=== PATIENT | female | born 1940 | race Caucasian/White ===

== ENCOUNTER → 2019-09-13 00:01 | Outpatient (RCR) | payer MEDICARE, SELFPAY | LOC: ONCMED 08-15 05:37 | PROVIDERS: Family Provider Nurse Practitioner Family; Visit Provider Internal Medicine Hematology & Oncology | DX: Z51.11 Encounter for antineoplastic chemotherapy (principal); C18.8 Malignant neoplasm of overlapping sites of colon; C78.7 Secondary malignant neoplasm of liver and intrahepatic bile duct; D50.9 Iron deficiency anemia, unspecified; D72.819 Decreased white blood cell count, unspecified; D69.6 Thrombocytopenia, unspecified; Z87.11 Personal history of peptic ulcer disease; Z86.010 Personal history of colon polyps; Z79.899 Other long term (current) drug therapy; Z95.828 Presence of other vascular implants and grafts | CPT/HCPCS: 36415; 36593; 80053 ×3; 85025 ×3; 96367 ×2; 96368 ×2; 96374; 96375; 96413 ×2; 96415 ×2; 96416 ×2; 96417; 96523 ×2; 99214 ×3; J0640 ×2; J1100 ×2; J1642 ×4; J2469 ×2; J2997 ×2; J3475; J3490 ×2; J7050 ×3; J9263 ×4; J9303 ×2 ==

== ENCOUNTER 2019-10-05 05:46 | Outpatient (RCR) | payer MEDICARE, SELFPAY ==
[2019-09-19 08:48] LABS: Basophils # 0.1 10^3/uL (0.0-0.1); Basophils % 1.2 %; Eosinophils # 0.2 10^3/uL (0.0-0.8); Eosinophils % 3.1 %; Hematocrit 42.5 % (37.0-47.0); Hemoglobin 13.7 g/dL (11.5-15.3); Lymphocytes # 1.3 10^3/uL (0.8-4.8); Lymphocytes % 25.7 %; Mean Corpuscular HGB Conc 32.2 g/dL (30.0-36.0); Mean Corpuscular Hemoglobin 28.1 pg (28.0-34.0); Mean Corpuscular Volume 87.3 fL (81-99); Mean Platelet Volume 10.7 fL (7.4-10.4); Monocytes # 0.7 10^3/uL (0.2-0.9); Monocytes % 14.9 %; Neutrophils # 2.7 10^3/uL (1.8-7.7); Neutrophils % 54.9 %; Nucleated Red Blood Cells % 0 %; Platelet Count 206 10^3/cmm (130-400); Red Blood Count 4.87 10^6/uL (4.1-5.3); Red Cell Distribution Width 18.6 % (12.1-15.1); White Blood Count 4.9 10^3/uL (4.0-10.0)
[2019-09-19 09:10] LABS: Alanine Aminotransferase 18 U/L (0-33); Alkaline Phosphatase 101 IU/L (35-105); Anion Gap 18.4 (5-19); Aspartate Amino Transferase 24 U/L (0-32); Blood Urea Nitrogen 10 mg/dL (8-23); Calcium 10.4 mg/Dl (8.8-10.2); Carbon Dioxide 27 mmol/L (22-29); Chloride 97 mmol/L (98-107); Globulin 1.7 g/dL (1.3-4.6); Glucose 145 mg/dL (74-106); Potassium 3.4 mmol/L (3.5-5.1); Sodium 139 mmol/L (136-145); Total Bilirubin 0.5 mg/dL (0.15-1.2); Total Protein 6.7 g/dL (6.6-8.7)
[2019-09-19] MEDS: dextrose 5% 250 ML 75 ML (10:05)
--- NOTE | 2019-09-19 10:56 | ONC FU_ITS ---
[facility] Patient Note Patient: Elaine Gomez Unit #: [id number]: 1940 Dictated By: Agnes WestfallDate of Visit: Sep 19, 2019 Onc MED Follow-Up/Prog Note Chief Complaint: Iron deficiency anemia Sigmoid Colon Cancer History of Present Illness: Mrs. Byrne is a 79-year-old female with history of chronic back pain for which she was taking ibuprofen for the last 4 months. She went to see her primary care physician for routine lab workup and follow-up and found to have severe anemia. Her CBC checked on 05/05/2019 shows white blood count 7.2 hemoglobin 6.7 crit 23.2 platelets 367,000 MCV 65.5 iron studies showed ferritin 6 iron 17 saturation for TIBC 425 and CMP was within normal range. Patient was given 2 units of packed RBCs. Patient said she was feeling weak and tired but thought it was due to old age . She had had no palpitations, no shortness of breath, no history of melena or hematochezia, no history of jaundice, no history of weight loss, no history of hemoptysis or hematemesis, no history of hematuria. No history of weight loss. No history of abdominal pain. Patient has history of peptic ulcer in the past. Last colonoscopy was done 5 years ago and at that time she was found to have some polyps, there were removed as per patient it was negative for any malignancy. Mrs Gomez underwent EGD and colonoscopy by Dr. Haas on 06/07/2019 Showed distal colon/sigmoid mass and biopsy was obtained which shows infiltrating adenocarcinoma CT scan of abdomen pelvis done on 06/08/2019 showed colonic mass involving descending and sigmoid colon with luminal narrowing measuring over length of 6.4 cm and normal size liver. There are several hypoechoic nodules within the liver. The largest and most concerning was in the inferior right lobe measuring 2.2 x 1.3 cm. There are a few additional scattered hypodensities within the remaining liver. CT PET scan done on 06/18/2019 showed hypermetabolic colonic mass in the descending colon at sigmoid with SUV of 18.7. And two hypermetabolic hepatic lesions also seen, one is in the lateral right lobe, segment 7 measuring 1.2 cm with SUV 5.3 and second one in the left lobe measuring 1.3 cm with SUV of 6.5 Next generation sequencing showed K-marti/N marti wild type,BRAF mutation not detected, MSI/MMR intact. Dr Hayes recommended treatment with modified FOLFOX and vectibix. She began her first treatment on July 18, 2019. Mrs. Gomez is here today for follow-up. She is due for cycle 5 FOLFOX/vectibix Her treatment was held last week due to neutropenia-her ANC was 1400. Her platelet count had dipped to 130,000. She was delayed a week and is here today for reassessment. She states overall she is doing good. 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 She states is not getting any worse. It is not lasting any longer or worse in intensity. She denies any mouth sores, sore throat or difficulty swallowing. She denies any nausea. She states her energy is fair. She is able to do all of her ADLs without assistance. She denies any fever or chills. She states her appetite is good. She denies any diarrhea or constipation. She states that her stomach does get pretty loud and rumbling at times but has no nausea or pain or diarrhea with the rumbling. She states is just really loud at times. She states she does have some gas with the rumbling. We discussed her taking Gas-X as needed. She states overall she is feeling good. Her ECOG is 1. Past Medical History: Hypertension Type II diabetes Past Surgical History: Breast biopsy Hysterectomy Allergies: Penicillin Medications: Furosemide 1 Tablet (of 40 mg) Oral daily Gemfibrozil 1 Tablet (of 600 mg) Oral b.i.d. Glimepiride 1 Tablet (of 2 mg) Oral b.i.d. LORazepam 0.5 - 1 Tablet (of 1 mg) Oral t.i.d. PRN Losartan Potassium 1 Tablet (of 100 mg) Oral daily metFORMIN HCl 2 Tablet (of 500 mg) Oral b.i.d. Potassium Chloride ER 1 Tablet (of 10 meq) Tablet, controlled release Oral daily Pravastatin Sodium 1 Tablet (of 40 mg) Oral daily Prochlorperazine Maleate 1 Tablet (of 10 mg) Oral q 4 hours PRN Family History: Ms. Gomez's mother at age 85: old age. Ms. Gomez's father at age 70: myocardial infaraction. Social History: Ms. Gomez is and she is retired. Ms. Gomez has never smoked. She has no history of drinking. Review Of Symptoms: Constitutional Denies fevers, chills, night sweats, excessive fatigue or weight loss. Allergic/Immunologic No reactions. Eyes Denies significant visual changes. No diplopia. No amaurosis. ENMT Denies changes in hearing, sore throat, mouth sores, difficulty or changes in swallowing ability, and/or sinus drainage. Endocrine No diabetes, thyroid disease or hormone replacement. Denies hot flashes or night sweats. Hematologic/Lymphatic Denies easy bruising or bleeding. The patient denies any tender or palpable lymph nodes. Respiratory Denies dyspnea on exertion, chest pain, cough or hemoptysis. Denies orthopnea. Cardiovascular Denies anginal chest pain, palpitations or orthopnea. Gastrointestinal Denies nausea, vomiting, diarrhea, GI bleeding, or constipation. Denies change in bowel habits and/or stool color, no heartburn or early satiety. States stomach gets to getting grumbling really loud at times. No diarrhea or nausea/vomiting. Genitourinary (F) No hematuria, hesitancy, incontinence, vaginal bleeding, discharge or other problems with urination. Musculoskeletal Denies joint pain, swelling or redness. No decreased range of motion. Integumentary Denies chronic rashes, inflammation, ulcerations or skin changes. Neurologic Denies headache, blurred vision, and no areas of focal weakness or numbness. Normal-assisted gait. No sensory problems today. Psychiatric Denies insomnia, depression, heather or mood swings. Vital Signs: Performed on Sep 19, 2019 09:03 Height - 60.00 in Weight - 141.8 lbs (HIGH) BSA - 1.61 sq.m BMI - 27.69 Temperature - 97.8 F (LOW) Pulse - 95 /min Respiration - 24 /min BP - 138/90 mm(hg) O2 Sat - 94 % (LOW) Pain - 0,1 - No physically strenuous activity, but ambulatory and able to carry out light or sedentary work (e.g. office work, light house work). (ECOG) Physical Examination: Constitutional Alert, oriented, no acute distress. Skin pink, warm and dry. Head Normocephalic; atraumatic. Eyes Conjunctivae and sclerae are clear and without icterus. Pupils are reactive and equal. ENMT No oral exudates, ulcers, masses, thrush or mucositis. Oropharynx clear. Tongue normal. Neck Supple without masses or thyromegaly. No jugular venous distension. Hematologic/Lymphatic No petechiae or purpura. Respiratory Lungs are clear to auscultation without rhonchi or wheezing. Cardiovascular Regular rate and rhythm of heart without murmurs,clicks, gallops or rubs. Chest Left venous access device insertion unremarkable. Abdomen Non-tender, non-distended, no masses, ascites. Good bowel sounds noted in all quads. No guarding or rebound tenderness. No pulsatile masses. Back/Spine Non-tender to palpation. Extremities No visible deformities, no cyanosis, clubbing or edema. Musculoskeletal No tenderness or swelling, normal range of motion without obvious weakness. Integumentary No rashes or lesions. Neurologic No sensory or motor deficits, normal cerebellar function, normal for her/assisted gait. Psychiatric Alert and oriented times three. Coherent speech. Verbalizes understanding of our discussions today. Laboratory:Test performed on Sep 19, 2019 08:16 Glucose 145 mg/dL BUN 10 mg/dL Creatinine 0.6 mg/dL Cr Clearance (Est) 81.55 mL/min Sodium 139 mmol/L Potassium 3.4 mmol/L Chloride 97 mmol/L CO2 27 mmol/L Calcium 10.4 mg/dL Protein, Total 6.7 g/dL Albumin 5.0 g/dL Globulin 1.7 g/dL Bilirubin, Total 0.5 mg/dL Alkaline Phosphatase 101 IU/L AST (SGOT) 24 IU/L ALT (SGPT) 18 IU/L WBC 4.9 10^9/L RBC 4.87 10^12/L HGB 13.7 g/dL HCT 42.5 % MCV 87.3 fl MCH 28.1 pg MCHC 32.2 g/dL RDW 18.6 % Platelet Count 206 10^9/L Neutrophils (Gran) 2.7 10^9/L Lymphocytes 1.3 10^9/L Monocytes 0.7 10^9/L Eosinophils 0.2 10^9/L Basophils 0.1 10^9/L Test performed on Jun 15, 2019 12:08 CEA 6.3 ng/mL Impression: Moderately differentiated infiltrating adenocarcinoma involving distal colon/sigmoid colon per colonoscopy done on 06/07/2019 CT scan of abdomen done on 06/08/2019 showed short segment 80 of significant circumferential mucosal thickening extending over mental 6.4 cm involving descending colon and proximal sigmoid. Moderate narrowing of the lumen. There is adjacent pericolonic stranding with a wall thickening and soft tissue infiltration. There is a small adjacent lymph node measuring 5 mm. Normal size liver. There are several hypoechoic nodules within the liver. The largest and most concerning is the inferior right lobe measuring 2.2 x 1.3 cm there are a few additional scattered hypodensities within the remaining liver. CEA checked on 06/15/2019 was 6.3 Well compensated, Microcytic hypochromic anemia due to iron deficiency Most likely due to bleeding from colon cancer CBC done on 05/05/2019 showed white blood count 7.2 hemoglobin 6.7 hematocrit 23.2 MCV 65.5 platelets 367,000 and ferritin 6, iron saturation 4%, iron 17. Status post 2 units of packed RBC with that her repeat CBC done on 05/24/2019 showed white blood count 5.5 hemoglobin 9.1 g, hematocrit 29.4 MCV 70.9 platelets 320,000 with a normal differential. colonoscopy was done 5 years ago, some polyps were removed, as per patient, there were benign. Distant past history of peptic ulcer disease. Dr Cat discussed with Mrs Gomez regarding her CT PET scan which confirmed hepatic metastatic disease and next initially sequencing which showed MSI/MMR intact, K-marti/ Nras wild type, BRAF no mutation detected. At this point role of systemic chemotherapy in stage IV colon cancer was discussed by Dr Cat with the patient and family and earlier with her son, Dakota gomez, who is a surgeon in [facility]. And based on next initially sequencing, Dr Cat recommended that she proceed with panitumumab 6 mg/kg every 2 weeks along with FOLFOX. Considering her age and this stage IV disease, we might consider dose modification. All the side effect possible benefits associated with immunotherapy/chemotherapy were discussed, especially immunotherapy related, like dermatologic , pulmonary GI especially nausea diarrhea and electrolyte imbalance like hypomagnesemia were mentioned and peripheral neuropathy especially with oxaliplatin and mild sore diarrhea, jaundice or [id number] syndrome especially with 5-FU were mentioned. She did obtain Port-A-Cath placement to facilitate chemotherapy. The current plan to give her 6 cycles of this regimen followed by CT PET scan to assess the response. She has completed 4 cycles at this time. She did have delay of 1 week of cycle 5 due to neutropenia with an ANC of 1400. Plan: 1. Proceed with cycle 5/6 FOLFOX/Vectibix. 2. Continue current anti-medics as they are working well. I did add Protonix today to see if this will help with a rumbling in her stomach . 3. Today's labs were reviewed and discussed with Mr. Mrs. Gomez and a copy was given to them. WBC is recovered at 4.9 hemoglobin 13.7, platelets 206,000, ANC is 2700. Potassium has improved to 3.4 and BUN is 0.6. Random glucose was 145. LFTs were normal. 4. We did discuss that she could use Gas-X 180 mg 1 or 2 up to 2-3 times a day as needed for the rumbling in her gut . 5. We will plan to see her back in 2 weeks with CBC CMP in anticipation of cycle 6-day 1. I did request interim CBC just to monitor as she was neutropenic last week. 6. Mrs Gomez has been instructed to contact us in the interim should questions or problems arise. ADDENDUM: Mrs. Gomez is instructed to continue her potassium at 10 mg twice daily. Her potassium is recovering. Signed By: Agnes Westfall-, AOCNP Abdullahi Cat MD <<Signature on File>>
[2019-09-19] MEDS: acetaminophen 325 mg Tablet 650 MG PO (12:36)
[2019-09-19] MEDS: pantoprazole 40 mg SDV IV (12:40)
[2019-09-26 10:50] LABS: Basophils # 0.1 10^3/uL (0.0-0.1); Basophils % 1.1 %; Eosinophils # 0.1 10^3/uL (0.0-0.8); Eosinophils % 3.1 %; Hematocrit 42.2 % (37.0-47.0); Hemoglobin 13.4 g/dL (11.5-15.3); Lymphocytes % 22.4 %; Mean Corpuscular HGB Conc 31.8 g/dL (30.0-36.0); Mean Corpuscular Hemoglobin 28.4 pg (28.0-34.0); Mean Corpuscular Volume 89.4 fL (81-99); Mean Platelet Volume 10.5 fL (7.4-10.4); Monocytes # 0.3 10^3/uL (0.2-0.9); Monocytes % 7.3 %; Neutrophils % 65.7 %; Nucleated Red Blood Cells % 0 %; Platelet Count 156 10^3/cmm (130-400); Red Blood Count 4.72 10^6/uL (4.1-5.3); Red Cell Distribution Width 17.8 % (12.1-15.1); White Blood Count 4.6 10^3/uL (4.0-10.0)
[2019-10-03 08:34] LABS: Basophils % 0.7 %; Eosinophils # 0.1 10^3/uL (0.0-0.8); Eosinophils % 2.7 %; Hematocrit 40.2 % (37.0-47.0); Hemoglobin 12.7 g/dL (11.5-15.3); Lymphocytes % 23.5 %; Mean Corpuscular HGB Conc 31.6 g/dL (30.0-36.0); Mean Corpuscular Hemoglobin 28.9 pg (28.0-34.0); Mean Corpuscular Volume 91.6 fL (81-99); Mean Platelet Volume 10.4 fL (7.4-10.4); Monocytes # 0.5 10^3/uL (0.2-0.9); Neutrophils # 2.7 10^3/uL (1.8-7.7); Neutrophils % 61.9 %; Nucleated Red Blood Cells % 0 %; Platelet Count 130 10^3/cmm (130-400); Red Blood Count 4.39 10^6/uL (4.1-5.3); Red Cell Distribution Width 17.5 % (12.1-15.1); White Blood Count 4.4 10^3/uL (4.0-10.0)
[2019-10-03 08:59] LABS: Carcinoembryonic Antigen 5.9 ng/mL (0.0-4.7)
[2019-10-03 09:20] LABS: Alanine Aminotransferase 28 U/L (0-33); Albumin Level 3.5 g/dL (3.5-5.2); Alkaline Phosphatase 95 IU/L (35-105); Anion Gap 18.8 (5-19); Aspartate Amino Transferase 39 U/L (0-32); Blood Urea Nitrogen 10 mg/dL (8-23); Calcium 9.2 mg/Dl (8.8-10.2); Carbon Dioxide 20 mmol/L (22-29); Chloride 106 mmol/L (98-107); Globulin 3.2 g/dL (1.3-4.6); Glucose 102 mg/dL (74-106); Potassium 3.8 mmol/L (3.5-5.1); Sodium 141 mmol/L (136-145); Total Bilirubin 0.4 mg/dL (0.15-1.2); Total Protein 6.7 g/dL (6.6-8.7)
[2019-10-03] MEDS: dextrose 5% 250 ML 75 ML (09:55)
[2019-10-03] MEDS: acetaminophen 325 mg Tablet 650 MG PO (10:00)
[2019-10-03] MEDS: dextrose 5% 250 ML 300 ML IV (10:17)
--- NOTE | 2019-10-03 14:26 | ONC FU_ITS ---
Dr. Cat follow up note Patient: Elaine Gomez Unit #: [id number]: 1940 Dicatated By: Abdullahi Cat M.D.Date of Visit:Oct 03, 2019 Onc Med Follow-up/Prog Note History of Present Illness: Mrs. Byrne is a 79-year-old female with history of chronic back pain for which she was taking ibuprofen for the last 4 months. She went to see her primary care physician for routine lab workup and follow-up and found to have severe anemia. Her CBC checked on 05/05/2019 shows white blood count 7.2 hemoglobin 6.7 crit 23.2 platelets 367,000 MCV 65.5 iron studies showed ferritin 6 iron 17 saturation for TIBC 425 and CMP was within normal range. Patient was given 2 units of packed RBCs. Patient said she was feeling weak and tired but thought it was due to old age . She had had no palpitations, no shortness of breath, no history of melena or hematochezia, no history of jaundice, no history of weight loss, no history of hemoptysis or hematemesis, no history of hematuria. No history of weight loss. No history of abdominal pain. Patient has history of peptic ulcer in the past. Last colonoscopy was done 5 years ago and at that time she was found to have some polyps, there were removed as per patient it was negative for any malignancy. Mrs Gomez underwent EGD and colonoscopy by Dr. Haas on 06/07/2019 Showed distal colon/sigmoid mass and biopsy was obtained which shows infiltrating adenocarcinoma CT scan of abdomen pelvis done on 06/08/2019 showed colonic mass involving descending and sigmoid colon with luminal narrowing measuring over length of 6.4 cm and normal size liver. There are several hypoechoic nodules within the liver. The largest and most concerning is in the inferior right lobe measuring 2.2 x 1.3 cm. There are a few additional scattered hypodensities within the remaining liver. CT PET scan done on 06/18/2019 showed hypermetabolic colonic mass in the descending colon at sigmoid with SUV of 18.7. And two hypermetabolic hepatic lesions also seen, one is in the lateral right lobe, segment 7 measuring 1.2 cm with SUV 5.3 and second one in the left lobe measuring 1.3 cm with SUV of 6.5 Next generation sequencing showed K-marti/N marti wild type,BRAF mutation not detected, MSI/MMR intact. recommended treatment with modified FOLFOX and vectibix. She began her first treatment on July 18, 2019. Came for follow-up, denies any specific complaints, no fever or chills, no nausea or vomiting, no mouth sores, no jaundice, no peripheral numbness, no diarrhea constipation. Occasionally abdominal cramps especially after chemotherapy otherwise tolerating systemic well. Medications: Furosemide 1 Tablet (of 40 mg) Oral daily, Gemfibrozil 1 Tablet (of 600 mg) Oral b.i.d., Glimepiride 1 Tablet (of 2 mg) Oral b.i.d., LORazepam 0.5 - 1 Tablet (of 1 mg) Oral t.i.d. PRN, Losartan Potassium 1 Tablet (of 100 mg) Oral daily, metFORMIN HCl 2 Tablet (of 500 mg) Oral b.i.d., Potassium Chloride ER 2 Tablet (of 10 meq) Tablet, controlled release Oral daily, Pravastatin Sodium 1 Tablet (of 40 mg) Oral daily, Prochlorperazine Maleate 1 Tablet (of 10 mg) Oral q 4 hours PRN Allergies: Penicillin Review of Systems: Constitutional - Appetite is good and weight is stable. No fever, chills, hot flashes, or night sweats. Energy level is fair. Pt does report some weakness with exertion, and some instability while mobile, ENMT - No sinus congestion/drainage. No mouth sores. No sore throat or difficulty swallowing, Hematologic/Lymphatic - No abnormal bruising or bleeding, Respiratory - No shortness of breath. No cough. No pleuritic pain or hemoptysis, Cardiovascular - No angina pain. No palpitations, Gastrointestinal - No nausea or vomiting. No heartburn or acid reflux. No diarrhea or constipation. No blood in the stool or black stools, Genitourinary (F) - No dysuria or hematuria. No urinary frequency. No urgency or incontinence, Musculoskeletal - Positive for back pain, Neurologic - No headache or dizziness. Pt reports numbness in fingers when exposed to cold temperatures, Psychiatric - No anxiety or depression. No insomnia. Vital Signs: Performed on Oct 03, 2019 09:23 Height - 60.00 in Weight - 143.2 lbs (HIGH) BSA - 1.62 sq.m BMI - 27.97 Temperature - 97.8 F (LOW) Pulse - 61 /min Respiration - 18 /min BP - 161/81 mm(hg) (HIGH) O2 Sat - 98 % Pain - 0 Performance Status: 1 - No physically strenuous activity, but ambulatory and able to carry out light or sedentary work (e.g. office work, light house work). (ECOG) Physical Examination: ENMT - No oral exudates, ulcers, masses, thrush or mucositis. Oropharynx clear. Tongue normal, Respiratory - Lungs are clear to auscultation without rhonchi or wheezing, Cardiovascular - Regular rate and rhythm of heart, Abdomen - Non-tender, non-distended, Good bowel sounds. No guarding or rebound tenderness. No pulsatile masses, Extremities - no edema. Lab/Imaging: Test performed on Oct 03, 2019 09:07 CEA 5.9 ng/mL Test performed on Oct 03, 2019 08:53 WBC 4.4 10^9/L RBC 4.39 10^12/L HGB 12.7 g/dL HCT 40.2 % MCV 91.6 fl MCH 28.9 pg MCHC 31.6 g/dL RDW 17.5 % Platelet Count 130 10^9/L MPV 10.4 fL Neutrophils (Gran) 2.7 10^9/L Lymphocytes 1.0 10^9/L Monocytes 0.5 10^9/L Eosinophils 0.1 10^9/L Basophils 0 10^9/L Manual Lymphocytes 23.5 % Manual Monocytes 11 % Manual Eosinophils 2.7 % Manual Basophils 0.7 % NRBCs 0 /100 WBC Test performed on Oct 03, 2019 08:15 Glucose 102 mg/dL BUN 10 mg/dL Creatinine 0.6 mg/dL Cr Clearance (Est) 81.55 mL/min Sodium 141 mmol/L Potassium 3.8 mmol/L Chloride 106 mmol/L CO2 20 mmol/L Calcium 9.2 mg/dL Protein, Total 6.7 g/dL Albumin 3.5 g/dL Globulin 3.2 g/dL Bilirubin, Total 0.4 mg/dL Alkaline Phosphatase 95 IU/L AST (SGOT) 39 IU/L ALT (SGPT) 28 IU/L Neutrophil % 2.7 % Test performed on Sep 13, 2019 08:19 Anion Gap 15.3 Lymphocyte % 32.5 % Monocyte % 16.1 % Eosinophil % 5.0 % Basophils % 1.6 % Test performed on Jul 25, 2019 13:24 Magnesium 1.6 mg/dL Impression: Moderately differentiated infiltrating adenocarcinoma involving distal colon/sigmoid colon per colonoscopy done on 06/07/2019 CT scan of abdomen done on 06/08/2019 showed short segment 80 of significant circumferential mucosal thickening extending over mental 6.4 cm involving descending colon and proximal sigmoid. Moderate narrowing of the lumen. There is adjacent pericolonic stranding with a wall thickening and soft tissue infiltration. There is a small adjacent lymph node measuring 5 mm. Normal size liver. There are several hypoechoic nodules within the liver. The largest and most concerning is the inferior right lobe measuring 2.2 x 1.3 cm there are a few additional scattered hypodensities within the remaining liver. CEA checked on 06/15/2019 was 6.3 Well compensated, Microcytic hypochromic anemia due to iron deficiency Most likely due to bleeding from colon cancer CBC done on 05/05/2019 showed white blood count 7.2 hemoglobin 6.7 hematocrit 23.2 MCV 65.5 platelets 367,000 and ferritin 6, iron saturation 4%, iron 17. Status post 2 units of packed RBC with that her repeat CBC done on 05/24/2019 showed white blood count 5.5 hemoglobin 9.1 g, hematocrit 29.4 MCV 70.9 platelets 320,000 with a normal differential. colonoscopy was done 5 years ago, some polyps were removed, as per patient, there were benign. Distant past history of peptic ulcer disease. discussed with Mrs Gomez regarding her CT PET scan which confirmed hepatic metastatic disease and next initially sequencing which showed MSI/MMR intact, K-marti/ Nras wild type, BRAF no mutation detected. At this point role of systemic chemotherapy in stage IV colon cancer was discussed with the patient and family and earlier with her son, Dakota gomez, who is a surgeon in [facility]. And based on next initially sequencing, Dr Cat recommended that she proceed with panitumumab 6 mg/kg every 2 weeks along with FOLFOX. Considering her age and this stage IV disease, we might consider dose modification. All the side effect possible benefits associated with immunotherapy/chemotherapy were discussed, especially immunotherapy related, like dermatologic , pulmonary GI especially nausea diarrhea and electrolyte imbalance like hypomagnesemia were mentioned and peripheral neuropathy especially with oxaliplatin and mild sore diarrhea, jaundice or [id number] syndrome especially with 5-FU were mentioned. Patient excessive understanding, further teaching will be done by chemotherapy nurse. She did obtain Port-A-Cath placement to facilitate chemotherapy. The current plan to give her 6 cycles of this regimen followed by CT PET scan to assess the response. Plan: Discussed with patient regarding her labs white blood count 4.4 hemoglobin 12.7 crit 40.2 platelets 130,000 absolute neutrophil count 2700 CMP within normal limit CEA of 5.9 compared to 6.2 prior to the chemotherapy Clinically, patient is doing well with no signs symptom suggestive of disease progression, tolerating systemic chemotherapy with FOLFOX/vectibix well but with expected side effects. We'll proceed with cycle #6 of FOLFOX/vectibix today and then schedule her for follow-up CT PET scan to assess disease response and then plan accordingly surgery versus further treatment versus change in regimen depending on response to the treatment. Return to clinic in 2 weeks with CBC CMP and CT PET scan Signed By: Abdullahi Cat M.D. <<Signature on File>>
== END 2019-10-14 23:59 | disposition home or self-care (01) ==
LOC: ONCMED 05:46
PROVIDERS: Nurse Practitioner; Absent Provider Internal Medicine Medical Oncology; Family Provider Nurse Practitioner Family; Visit Provider Internal Medicine Hematology & Oncology
DX: Z51.11 Encounter for antineoplastic chemotherapy (principal); C18.8 Malignant neoplasm of overlapping sites of colon; C78.7 Secondary malignant neoplasm of liver and intrahepatic bile duct; Z45.2 Encounter for adjustment and management of vascular access device; G89.29 Other chronic pain; M54.9 Dorsalgia, unspecified; I10 Essential (primary) hypertension; E11.9 Type 2 diabetes mellitus without complications; Z79.84 Long term (current) use of oral hypoglycemic drugs; Z87.11 Personal history of peptic ulcer disease
CPT/HCPCS: 36415; 36593; 80053; 82378; 85025; 96367; 96368; 96374; 96375; 96413; 96415; 96416; 96417; 96523; 99214; A4222; C9113; J0640; J1100; J1200; J2469; J2997; J3490; J7050; J9263; J9303

== ENCOUNTER → 2019-10-10 15:03 | Outpatient (BNVA) | payer MEDICARE, SELFPAY | PROVIDERS: Family Provider Nurse Practitioner Family; Visit Provider Internal Medicine Hematology & Oncology | DX: R30.0 Dysuria (principal) | CPT/HCPCS: 81003 ==

== ENCOUNTER 2019-10-24 05:39 | Outpatient (RCR) | payer MEDICARE, SELFPAY ==
[2019-10-17 09:01] LABS: Basophils % 0.7 %; Eosinophils % 0.3 %; Hematocrit 44.7 % (37.0-47.0); Hemoglobin 14.4 g/dL (11.5-15.3); Lymphocytes # 0.9 10^3/uL (0.8-4.8); Lymphocytes % 28.1 %; Mean Corpuscular HGB Conc 32.2 g/dL (30.0-36.0); Mean Corpuscular Hemoglobin 29.2 pg (28.0-34.0); Mean Corpuscular Volume 90.7 fL (81-99); Mean Platelet Volume 11.2 fL (7.4-10.4); Monocytes # 0.8 10^3/uL (0.2-0.9); Monocytes % 25.2 %; Neutrophils # 1.4 10^3/uL (1.8-7.7); Neutrophils % 45.4 %; Nucleated Red Blood Cells % 0 %; Platelet Count 171 10^3/cmm (130-400); Red Blood Count 4.93 10^6/uL (4.1-5.3); Red Cell Distribution Width 16.9 % (12.1-15.1); White Blood Count 3.1 10^3/uL (4.0-10.0)
[2019-10-17 09:11] LABS: Alanine Aminotransferase 23 U/L (0-33); Albumin Level 3.9 g/dL (3.5-5.2); Alkaline Phosphatase 123 IU/L (35-105); Anion Gap 19.8 (5-19); Aspartate Amino Transferase 32 U/L (0-32); Blood Urea Nitrogen 8 mg/dL (8-23); Calcium 9.4 mg/dL (8.5-10.5); Carbon Dioxide 25 mmol/L (22-29); Chloride 97 mmol/L (98-107); Globulin 3.6 g/dL (1.3-4.6); Glucose 189 mg/dL (74-106); Sodium 139 mmol/L (136-145); Total Bilirubin 0.9 mg/dL (0.15-1.2); Total Protein 7.5 g/dL (6.6-8.7)
[2019-10-17 09:24] LABS: Potassium 2.8 mmol/L (3.5-5.1)
[2019-10-17] MEDS: ondansetron 2 mg/ML SDV 2 mL 4 MG IV (10:20)
[2019-10-17] MEDS: dexamethasone 10 mg/mL INJ 5 MG IV (10:25)
[2019-10-17] MEDS: potassium chloride 20 MEQ in sodium chloride 0.9% 500 ML 250 MEQ IV (10:30)
[2019-10-24 10:36] LABS: Basophils % 0.3 %; Eosinophils % 0.3 %; Hematocrit 45.3 % (37.0-47.0); Hemoglobin 14.7 g/dL (11.5-15.3); Lymphocytes # 1.2 10^3/uL (0.8-4.8); Lymphocytes % 19.7 %; Mean Corpuscular HGB Conc 32.5 g/dL (30.0-36.0); Mean Corpuscular Hemoglobin 29.8 pg (28.0-34.0); Mean Corpuscular Volume 91.7 fL (81-99); Monocytes # 0.9 10^3/uL (0.2-0.9); Monocytes % 14.3 %; Neutrophils # 3.9 10^3/uL (1.8-7.7); Neutrophils % 63.3 %; Nucleated Red Blood Cells % 0 %; Platelet Count 260 10^3/cmm (130-400); Red Blood Count 4.94 10^6/uL (4.1-5.3); Red Cell Distribution Width 16.9 % (12.1-15.1); White Blood Count 6.1 10^3/uL (4.0-10.0)
[2019-10-24 10:56] LABS: Alanine Aminotransferase 15 U/L (0-33); Albumin Level 3.9 g/dL (3.5-5.2); Alkaline Phosphatase 110 IU/L (35-105); Anion Gap 18.9 (5-19); Aspartate Amino Transferase 28 U/L (0-32); Blood Urea Nitrogen 9 mg/dL (8-23); Calcium 9.1 mg/dL (8.5-10.5); Carbon Dioxide 24 mmol/L (22-29); Chloride 99 mmol/L (98-107); Globulin 2.9 g/dL (1.3-4.6); Glucose 156 mg/dL (65-115); Magnesium 1.2 mg/dL (1.7-2.3); Potassium 2.9 mmol/L (3.5-5.1); Sodium 139 mmol/L (136-145); Total Bilirubin 0.6 mg/dL (0.15-1.2); Total Protein 6.8 g/dL (6.6-8.7)
--- NOTE | 2019-10-28 07:45 | ONC FU_ITS ---
[facility] Patient Note Patient: Elaine Gomez Unit #: [id number]: 1940 Dictated By: Agnes WestfallDate of Visit: Oct 24, 2019 Onc MED Follow-Up/Prog Note Chief Complaint: Iron deficiency anemia History of Present Illness: Mrs. Byrne is a 79-year-old female with history of chronic back pain for which she was taking ibuprofen for the last 4 months. She went to see her primary care physician for routine lab workup and follow-up and found to have severe anemia. Her CBC checked on 05/05/2019 shows white blood count 7.2 hemoglobin 6.7 crit 23.2 platelets 367,000 MCV 65.5 iron studies showed ferritin 6 iron 17 saturation for TIBC 425 and CMP was within normal range. Patient was given 2 units of packed RBCs. Patient said she was feeling weak and tired but thought it was due to old age . She had had no palpitations, no shortness of breath, no history of melena or hematochezia, no history of jaundice, no history of weight loss, no history of hemoptysis or hematemesis, no history of hematuria. No history of weight loss. No history of abdominal pain. Patient has history of peptic ulcer in the past. Last colonoscopy was done 5 years ago and at that time she was found to have some polyps, there were removed as per patient it was negative for any malignancy. Mrs Gomez underwent EGD and colonoscopy by Dr. Haas on 06/07/2019 Showed distal colon/sigmoid mass and biopsy was obtained which shows infiltrating adenocarcinoma CT scan of abdomen pelvis done on 06/08/2019 showed colonic mass involving descending and sigmoid colon with luminal narrowing measuring over length of 6.4 cm and normal size liver. There are several hypoechoic nodules within the liver. The largest and most concerning is in the inferior right lobe measuring 2.2 x 1.3 cm. There are a few additional scattered hypodensities within the remaining liver. CT PET scan done on 06/18/2019 showed hypermetabolic colonic mass in the descending colon at sigmoid with SUV of 18.7. And two hypermetabolic hepatic lesions also seen, one is in the lateral right lobe, segment 7 measuring 1.2 cm with SUV 5.3 and second one in the left lobe measuring 1.3 cm with SUV of 6.5 Next generation sequencing showed K-marti/N marti wild type,BRAF mutation not detected, MSI/MMR intact. recommended treatment with modified FOLFOX and vectibix. She began her first treatment on July 18, 2019 After 6 treatments, follow-up CT PET scan done on 10/14/2019 showed resolution of hepatic metastatic disease and significant improvement in the rectosigmoid mass now SUV 10.75 compared to 18.7 on 06/18/2019. Her last chemotherapy was on October 03, 2019 which completed 6 cycles of FOLFOX and vectibix. She states tentative surgery is planned for December 2019. This is planned to be done in [place] under the care of her son, Megan Dakota Gomez. She is here today for 1 week follow-up as she has been having hypokalemia and hypomagnesemia. Her last potassium infusion was 20 mEq here on October 17, 2019. She is taking 20 mEq daily at home. She denies any further diarrhea. She states overall she is starting to feel some better she is slowly recovering. She remains active around her house. She is able to do her ADLs without any assistance. She states she is just slow but is able to get them done. She denies any new shortness of breath orthopnea. She is had no leg cramps or palpitations. She denies any nausea or vomiting. She denies fever or chills. She denies any neuropathy symptoms at present. She states she is eating fairly good. She has no new concerns today. Her ECOG is 1. Past Medical History: Hypertension Type II diabetes Past Surgical History: Breast biopsy Hysterectomy Allergies: Penicillin Medications: Furosemide 1 Tablet (of 40 mg) Oral daily Glimepiride 1 Tablet (of 2 mg) Oral b.i.d. LORazepam 0.5 - 1 Tablet (of 1 mg) Oral t.i.d. PRN Losartan Potassium 1 Tablet (of 100 mg) Oral daily metFORMIN HCl 2 Tablet (of 500 mg) Oral b.i.d. Potassium Chloride ER 2 Tablet (of 10 meq) Tablet, controlled release Oral daily Pravastatin Sodium 1 Tablet (of 40 mg) Oral daily Prochlorperazine Maleate 1 Tablet (of 10 mg) Oral q 4 hours PRN Family History: Ms. Gomez's mother at age 85: old age. Ms. Gomez's father at age 70: myocardial infaraction. Social History: Ms. Gomez is and she is retired. Ms. Gomez has never smoked. She has no history of drinking. Review Of Symptoms: Constitutional Denies fevers, chills, night sweats, excessive fatigue or weight loss. Allergic/Immunologic No reactions. Eyes Denies significant visual changes. No diplopia. No amaurosis. ENMT Denies changes in hearing, sore throat, mouth sores, difficulty or changes in swallowing ability, and/or sinus drainage. Endocrine No diabetes, thyroid disease or hormone replacement. Denies hot flashes or night sweats. Hematologic/Lymphatic Denies easy bruising or bleeding. The patient denies any tender or palpable lymph nodes. Respiratory Denies dyspnea on exertion, chest pain, cough or hemoptysis. Denies orthopnea. Cardiovascular Denies anginal chest pain, palpitations or orthopnea. Gastrointestinal Denies nausea, vomiting, diarrhea, GI bleeding, or constipation. Denies change in bowel habits and/or stool color, no heartburn or early satiety. No diarrhea or nausea/vomiting. Genitourinary (F) No hematuria, hesitancy, incontinence, vaginal bleeding, discharge or other problems with urination. Musculoskeletal Denies joint pain, swelling or redness. No decreased range of motion. Integumentary Denies chronic rashes, inflammation, ulcerations or skin changes. Neurologic Denies headache, blurred vision, and no areas of focal weakness or numbness. Normal-assisted gait. No sensory problems today. Psychiatric Denies insomnia, depression, heather or mood swings. Vital Signs: Performed on Oct 24, 2019 11:52 Height - 60.00 in Temperature - 97.8 F (LOW) Pulse - 98 /min Respiration - 24 /min BP - 134/89 mm(hg) O2 Sat - 95 % (LOW) Pain - 0,1 - No physically strenuous activity, but ambulatory and able to carry out light or sedentary work (e.g. office work, light house work). (ECOG) Physical Examination: Constitutional Alert, oriented, no acute distress. Skin pink, warm and dry. Head Normocephalic; atraumatic. Eyes Conjunctivae and sclerae are clear and without icterus. Pupils are reactive and equal. Hematologic/Lymphatic No petechiae or purpura. Chest Left venous access device insertion unremarkable. Abdomen Non-tender, non-distended, no masses, ascites. Back/Spine Non-tender to palpation. Extremities No visible deformities, no cyanosis, clubbing or edema. Musculoskeletal No tenderness or swelling, normal range of motion without obvious weakness. Integumentary No rashes or lesions. Neurologic No sensory or motor deficits, normal cerebellar function, normal for her/assisted gait. Psychiatric Alert and oriented times three. Coherent speech. Verbalizes understanding of our discussions today. Laboratory:Test performed on Oct 24, 2019 10:08 Magnesium 1.2 mg/dL Sodium 139 mmol/L Potassium 2.9 mmol/L Chloride 99 mmol/L CO2 24 mmol/L Anion Gap 18.9 BUN 9 mg/dL Creatinine 0.7 mg/dL Cr Clearance (Est) 69.9000 mL/min Glucose 156 mg/dL Calcium 9.1 mg/dL Protein, Total 6.8 g/dL Albumin 3.9 g/dL Globulin 2.9 g/dL Bilirubin, Total 0.6 mg/dL ALT (SGPT) 15 U/L AST (SGOT) 28 U/L Alkaline Phosphatase 110 IU/L WBC 6.1 10 3/uL RBC 4.94 10 6/uL HGB 14.7 g/dL HCT 45.3 % MCV 91.7 fL MCH 29.8 pg MCHC 32.5 g/dL RDW 16.9 % Platelet Count 260 10 3/cmm MPV 10.0 fL Neutrophils 3.9 10 3/uL Lymphocytes 1.2 10 3/uL Monocytes 0.9 10 3/uL Eosinophils 0.0 10 3/uL Basophils 0.0 10 3/uL Neutrophil % 63.3 % Lymphocyte % 19.7 % Monocyte % 14.3 % Eosinophil % 0.3 % Basophils % 0.3 % Test performed on Oct 03, 2019 09:07 CEA 5.9 ng/mL Impression: Moderately differentiated infiltrating adenocarcinoma involving distal colon/sigmoid colon per colonoscopy done on 06/07/2019 CT scan of abdomen done on 06/08/2019 showed short segment 80 of significant circumferential mucosal thickening extending over mental 6.4 cm involving descending colon and proximal sigmoid. Moderate narrowing of the lumen. There is adjacent pericolonic stranding with a wall thickening and soft tissue infiltration. There is a small adjacent lymph node measuring 5 mm. Normal size liver. There are several hypoechoic nodules within the liver. The largest and most concerning is the inferior right lobe measuring 2.2 x 1.3 cm there are a few additional scattered hypodensities within the remaining liver. CEA checked on 06/15/2019 was 6.3 Well compensated, Microcytic hypochromic anemia due to iron deficiency Most likely due to bleeding from colon cancer CBC done on 05/05/2019 showed white blood count 7.2 hemoglobin 6.7 hematocrit 23.2 MCV 65.5 platelets 367,000 and ferritin 6, iron saturation 4%, iron 17. Status post 2 units of packed RBC with that her repeat CBC done on 05/24/2019 showed white blood count 5.5 hemoglobin 9.1 g, hematocrit 29.4 MCV 70.9 platelets 320,000 with a normal differential. colonoscopy was done 5 years ago, some polyps were removed, as per patient, there were benign. Distant past history of peptic ulcer disease. discussed with Mrs Gomez regarding her CT PET scan which confirmed hepatic metastatic disease and next initially sequencing which showed MSI/MMR intact, K-marti/ Nras wild type, BRAF no mutation detected. Dr Cat dicussed the role of systemic chemotherapy in stage IV colon cancer was discussed with the patient and family and earlier with her son, Dakota gomez, who is a surgeon in [facility]. Based on next gene sequencing, Dr Cat recommended that she proceed with panitumumab 6 mg/kg every 2 weeks along with FOLFOX. Considering her age and this stage IV disease, there was consideration for dose modification. She did obtain Port-A-Cath placement to facilitate chemotherapy. The plan was to give her 6 cycles of this regimen followed by CT PET scan to assess the response. Her last chemotherapy was on 10/03/2019 which completed 6 cycles of chemotherapy. Follow-up CT PET scan done after 6 cycles of hemotherapy with FOLFOX/panitumumab showed excellent response with resolution of hepatic metastatic disease and significant improvement in the primary in the rectosigmoid colon: SUV 10.75 compared to 18.7 at the time of diagnosis. Dr Cat has recommed that she hold her chemotherapy and refer her to surgery, her son is a surgeon in [place], who will arrange the surgery. Mrs Gomez indicated that it may be December/January before she has surgery as she understood she would need several months to build up and recover . Dr Cat does plan to see her back after surgery is done for further management. In the interim she will have supportive care as needed. She has been having hypokalemia and hypomagnesium. Plan: 1. Proceed with potassium 20 mEq IV today as her potassium level is again low at 2.9. 2. She also receive magnesium IV 1 g. Her magnesium was also low today. 3. We will have her increase her oral potassium to 2 twice daily as long as this does not cause nausea or diarrhea. 4. We have also added Mag-Ox 400 mg once or twice daily depending on how well she tolerates it. If she has no nausea or vomiting or diarrhea she can try twice a day to see if we can correct her hypokalemia and hypomagnesemia. 5. Today's labs were reviewed in detail and discussed with Ms. Gomez and a copy was given to her. WBC 6.1, hemoglobin 14.7, platelets 260,000 ANC is 3900 potassium 2.9 magnesium 1.2 creatinine 0.7 LFTs are normal alk phos is 110. 6. We will plan to see her back in 1 week at which time we will recheck her CBC, CMP and magnesium level. 7. Ms. Gomez was instructed to contact us in the interim should questions or problems arise. She is advised if any diarrhea occurs she could treat it with Imodium but to decrease her potassium and magnesium supplements if it induces the diarrhea or nausea vomiting. She verbalized understanding and had no further questions at this time. Signed By: Agnes Westfall-, AOCNEdgardo Cat MD <<Signature on File>>
== END 2019-10-24 23:59 | disposition home or self-care (01) ==
LOC: ONCMED 05:39
PROVIDERS: Internal Medicine Hematology & Oncology; Absent Provider Internal Medicine Medical Oncology; Visit Provider Nurse Practitioner
DX: C18.8 Malignant neoplasm of overlapping sites of colon (principal); E87.6 Hypokalemia; E83.42 Hypomagnesemia; C78.7 Secondary malignant neoplasm of liver and intrahepatic bile duct; D50.9 Iron deficiency anemia, unspecified; E86.0 Dehydration; I10 Essential (primary) hypertension; E11.9 Type 2 diabetes mellitus without complications; G89.29 Other chronic pain; M54.9 Dorsalgia, unspecified; Z79.84 Long term (current) use of oral hypoglycemic drugs; Z79.899 Other long term (current) drug therapy; Z87.11 Personal history of peptic ulcer disease
CPT/HCPCS: 80053; 83735; 85025; 96365; 96366; 96367; 96374; 96375; 99214; G0463; J1100; J2405; J3475; J3480; J7030; J7040

== ENCOUNTER 2019-10-27 17:12 | Emergency (ER) | payer MEDICARE, SELFPAY ==
[2019-10-27] VITALS (7 sets, daily range): BP systolic 124–148; BP diastolic 74–112; PULSE 81–102; RESP 16–18; TEMP 36.6; O2SAT 96–98; BMI 25.5
--- NOTE | 2019-10-27 18:14 | ED_ITS ---
Entered by Yumiko Cee, acting as scribe for Dayanna Alvarado MD Oct 27, 2019 17:12 HPI - General Adult General: Chief complaint: General Medical Stated complaint: WEAKNESS Time Seen by Provider: 10/27/19 18:17 History of Present Illness: HPI narrative: 79 yo female presents with weakness. Pt states that she has been constipated for about 4-5 days, but has had 3 bowel movements today. pt took dulcalax today. pt states that she has had 6 treatments of chemo, the last day was oct 03. complaint: weakness Onset (ago): day(s) Severity: moderate Pain Consistency: intermittent Relieving factors: none Associated symptoms: Reports nausea and vomiting; Deny chest pain, dyspnea, headache(s) or rash Review of Systems Const: Denies: fever, chills, body aches or change in appetite Eyes: Denies: blurry vision or eye discomfort ENMT: Denies: throat pain or dental pain Card: Denies: chest pain Resp: Denies: shortness of breath GI: Reports: nausea and vomiting : Denies: painful urination Musc: Denies: neck pain or back pain Skin/Breast: Denies: rash Neuro: Denies: headache Psych: Denies: depression Deven/Lymph: Denies: easy bruising All/Imm: Denies: hives PFSH ED PFSH: Medical History (Updated 10/27/19 @ 21:22 by Dayanna Alvarado MD) Cancer Diabetes Hypertension Surgical History (Updated 10/27/19 @ 18:27 by Yumiko Cee) H/O breast biopsy H/O: hysterectomy Social History Smoking and tobacco status: never smoked Physical Exam Const: COMMON NORMALS: no apparent distress, oriented x3 and healthy appearing HENMT: COMMON NORMALS: normocephalic and head/scalp atraumatic HEAD & SCALP: normocephalic and atraumatic Eye: COMMON NORMALS: PERRL and EOMs intact bilaterally PUPIL: Yes PERRL Neck/C-Spine: COMMON NORMALS: full ROM and supple Chest: COMMONS NORMALS: inspection of chest normal and palpation of chest normal Resp: COMMON NORMALS: normal respiratory effort, no retractions, no use of accessory muscles and clear to auscultation bilaterally AUSCULTATION: clear to auscultation bilaterally Cardio: COMMON NORMALS: regular rate, regular rhythm and no murmurs RATE: regular rate RHYTHM: regular rhythm GI: COMMON NORMALS: normal to inspection, nondistended, normoactive bowel sounds, soft to palpation, non-tender and no masses PALPATION: Yes soft Extremity: COMMON NORMALS: normal to inspection and full ROM Neuro: COMMON NORMALS: oriented x3, moves all extremities and no focal motor deficits Psych: COMMON NORMALS: mental status grossly normal, thought process normal and cooperative THOUGHT PROCESS: normal thought process Skin: COMMON NORMALS: no rashes or lesions noted and no wounds GENERAL SKIN EXAM: no rashes or lesions noted Course Vital Signs: Vital signs: Vital Signs Temperature 97.9 F 10/27/19 17:17 Pulse Rate 85 10/27/19 21:29 Respiratory Rate 18 10/27/19 21:29 Blood Pressure 124/85 10/27/19 21:29 Pulse Oximetry 97 10/27/19 21:29 MDM - General Adult MDM Narrative: Medical decision making narrative: Patient presents here with abdominal pain and is worried about a small bowel obstruction. Patient CT shows chronic obstruction due to her mass which has shrunk. She has no signs of small bowel obstruction. Patient is stable for discharge and is to follow-up with primary care doctor in 3 to 5 days and return if worsening. Lab Data: Labs: Lab Results 10/27/19 10/27/19 Range/Units 18:01 18:01 WBC 11.8 H (4.0-10.0) 10^3/ uL RBC 4.76 (4.1-5.3) 10^6/u L Hgb 14.3 (11.5-15.3) g/dL Hct 44.9 (37.0-47.0) % MCV 94.3 (81-99) fL MCH 30.0 (28.0-34.0) pg MCHC 31.8 (30.0-36.0) g/dL RDW 16.7 H (12.1-15.1) % Plt Count 255 (130-400) 10^3/c mm MPV 10.2 (7.4-10.4) fL Neut % (Auto) 79.5 % Lymph % (Auto) 12.8 % Crosby % (Auto) 6.7 % Eos % (Auto) 0.0 % Baso % (Auto) 0.2 % Neut # (Auto) 9.4 H (1.8-7.7) 10^3/u L Lymph # (Auto) 1.5 (0.8-4.8) 10^3/u L Crosby # (Auto) 0.8 (0.2-0.9) 10^3/u L Eos # (Auto) 0.0 (0.0-0.8) 10^3/u L Baso # (Auto) 0.0 (0.0-0.1) 10^3/u L Nucleated RBC % (a uto) 0 % Nucleated RBCs # 0.0 /100WBC Sodium 137 (136-145) mmol/L Potassium 3.6 (3.5-5.1) mmol/L Chloride 100 (98-107) mmol/L Carbon Dioxide 22 (22-29) mmol/L Anion Gap 18.6 (5-19) BUN 14 (8-23) mg/dL Creatinine 0.7 (0.5-0.9) mg/dL Glucose 186 H (65-115) mg/dL Calcium 9.0 (8.5-10.5) mg/dL Total Bilirubin 0.6 (0.15-1.2) mg/dL AST 22 (0-32) U/L ALT 12 (0-33) U/L Alkaline Phosphata se 110 H (35-105) IU/L Total Protein 6.5 L (6.6-8.7) g/dL Albumin 3.7 (3.5-5.2) g/dL Globulin 2.8 (1.3-4.6) g/dL Imaging Data^: CXR: Attestation: I personally reviewed and interpreted this imaging study as follows: My impression: no acute abnormality CT Abd/Pel: Attestation: I personally reviewed and interpreted this imaging study as follows: Radiologist's impression: Ordering Provider/Ordering MD: Dayanna Alvarado MD Date of Service: 10/27/19 Procedure(s): CT abdomen pelvis w con* [id number] Accession Number(s): [id number] Report Number: [id number] PROCEDURE INFORMATION: Exam: CT Abdomen And Pelvis With Contrast Exam date and time: 10/27/2019 6:43 PM Age: 79 years old Clinical indication: Abdominal pain; Generalized; Prior surgery; Surgery type: Hysto; Patient HX: Colon CA; Additional info: R/O sbo TECHNIQUE: Imaging protocol: Computed tomography of the abdomen and pelvis with intravenous contrast. Total DLP: 610.12 mGy-cm Radiation optimization: All CT scans at this facility use at least one of these dose optimization techniques: automated exposure control; mA and/or kV adjustment per patient size (includes targeted exams where dose is matched to clinical indication); or iterative reconstruction. Contrast material: OMNI 300; Contrast volume: 95 ml; Contrast route: IV; COMPARISON: CT abdomen pelvis w con* [id number] 06/08/2019 11:32 AM FINDINGS: Mediastinum: Hiatal hernia. Liver: New 0.9 cm hypodense nodule in the anterior left liver lobe. The other low-density nodules previously identified in the liver are not visualized. Gallbladder and bile ducts: Normal. No calcified stones. No ductal dilation. Pancreas: Normal. No ductal dilation. Spleen: Normal. No splenomegaly. Adrenals: Normal. No mass. Kidneys and ureters: Subcentimeter cysts in both kidneys. Stomach and bowel: Diverticulosis of the sigmoid colon. Calcified sclerotic lesion in the proximal sigmoid colon with distended stool-filled colon proximal to the lesion with mild wall thickening. There is diffuse dilatation of the small bowel with fecalization, measuring up to 4.2 cm. Appendix: No evidence of appendicitis. Intraperitoneal space: Unremarkable. No free air. No significant fluid collection. Vasculature: Unremarkable. No abdominal aortic aneurysm. Lymph nodes: Unremarkable. No enlarged lymph nodes. Bladder: Unremarkable as visualized. Reproductive: The uterus is absent. Normal ovaries. Bones/joints: Degenerative spine with scoliosis. No lytic or aggressive lesion. Soft tissues: Unremarkable. CT/CT abdomen pelvis w con* [id number] IMPRESSION: 1. Sclerotic calcified mass in the proximal sigmoid colon is significantly smaller, consistent with treated malignancy. 2. The lesion in the proximal sigmoid colon is causing chronic obstruction of the colon with diffuse dilatation and fecalization of the small bowel. 3. Improved hepatic metastatic disease. EKG Data^: EKG 1: Attestation: I personally reviewed and interpreted this EKG as follows: EKG interpretation date: 10/27/19 EKG interpretation time: 18:16 Interpretation: sinus tach hr [address] or t wave abnormalities qrs 86 qtc 410 Computer generated interpretation: Abdomen/Pelvis CT 10/27/19 18:35 IMPRESSION: 1. Sclerotic calcified mass in the proximal sigmoid colon is significantly smaller, consistent with treated malignancy. 2. The lesion in the proximal sigmoid colon is causing chronic obstruction of the colon with diffuse dilatation and fecalization of the small bowel. 3. Improved hepatic metastatic disease. Radiation Dose CTDIVOL = (mGy): DLP = 610.12 (mGy-cm) Discharge Plan Discharge Patient Disposition: Home, Self-Care Clinical Impression: Abdominal pain Qualifiers: Abdominal location: generalized Qualified Code(s): R10.84 - Generalized abdominal pain Constipation Qualifiers: Constipation type: unspecified constipation type Qualified Code(s): K59.00 - Constipation, unspecified Condition: Stable Prescriptions: New dicyclomine 20 mg tablet 20 mg PO TID Qty: 20 RF: 0 No Action metformin 500 mg tablet 2,000 mg PO DAILY Qty: 120 RF: 0 Discharge Orders: Discharge Order (Routine); Ordered 10/27/19 Ordered By: Dayanna Alvarado Discharge Diet: Advance as tolerated Discharge Activity: Resume usual activity Patient Instructions: Abdominal Pain (ED) Discharge Date/Time: 10/27/19 21:32 Coding Level of Care Code ED Recreational Programs Director for Chg Fwd Exam Problem Focused The documentation recorded by the Coleman jimenez Kialy, accurately reflects the service I personally performed and the decisions made by Jenny raza Korby, MD Oct 27, 2019 17:12
[2019-10-27 18:20] LABS: Basophils % 0.2 %; Hematocrit 44.9 % (37.0-47.0); Hemoglobin 14.3 g/dL (11.5-15.3); Lymphocytes # 1.5 10^3/uL (0.8-4.8); Lymphocytes % 12.8 %; Mean Corpuscular HGB Conc 31.8 g/dL (30.0-36.0); Mean Corpuscular Volume 94.3 fL (81-99); Mean Platelet Volume 10.2 fL (7.4-10.4); Monocytes # 0.8 10^3/uL (0.2-0.9); Monocytes % 6.7 %; Neutrophils # 9.4 10^3/uL (1.8-7.7); Neutrophils % 79.5 %; Nucleated Red Blood Cells % 0 %; Platelet Count 255 10^3/cmm (130-400); Red Blood Count 4.76 10^6/uL (4.1-5.3); Red Cell Distribution Width 16.7 % (12.1-15.1); White Blood Count 11.8 10^3/uL (4.0-10.0)
--- NOTE | 2019-10-27 18:24 | XR_ITS ---
WS: [id number] ABDOMEN 1 VIEW(S) HISTORY: Abdominal pain. COMPARISON: No similar studies. CT abdomen and pelvis performed on the same day Marked dilatation of the colon, greatest dilatation is in the RIGHT lower quadrant. Small bowel dilat ation is also present in the LEFT upper abdomen. No suspicious calcifications or masses. Severe osteopenia and degenerative changes in the spine. XR/XR abdomen 1V* [id number] IMPRESSION: 1. Marked fecal and fluid distention throughout the colon and small bowel. Lila pect distal obstruction or ileus. 2. Severe osteopenia.
--- NOTE | 2019-10-27 18:35 | CTR_ITS ---
PROCEDURE INFORMATION: Exam: CT Abdomen And Pelvis With Contrast Exam date and time: 10/27/2019 6:43 PM Age: 79 years old Clinical indication: Abdominal pain; Generalized; Prior surgery; Surgery type: Hysto; Patient HX: Colon CA; Additional info: R/O sbo TECHNIQUE: Imaging protocol: Computed tomography of the abdomen and pelvis with intravenous contrast. Total DLP: 610.12 mGy-cm Radiation optimization: All CT scans at this facility use at least one of these dose optimization techniques: automated exposure control; mA and/or kV adjustment per patient size (includes targeted exams where dose is matched to clinical indication); or iterative reconstruction. Contrast material: OMNI 300; Contrast volume: 95 ml; Contrast route: IV; COMPARISON: CT abdomen pelvis w con* [id number] 06/08/2019 11:32 AM FINDINGS: Mediastinum: Hiatal hernia. Liver: New 0.9 cm hypodense nodule in the anterior left liver lobe. The other low-density nodules previously identified in the liver are not visualized. Gallbladder and bile ducts: Normal. No calcified stones. No ductal dilation. Pancreas: Normal. No ductal dilation. Spleen: Normal. No splenomegaly. Adrenals: Normal. No mass. Kidneys and ureters: Subcentimeter cysts in both kidneys. Stomach and bowel: Diverticulosis of the sigmoid colon. Calcified sclerotic lesion in the proximal sigmoid colon with distended stool-filled colon proximal to the lesion with mild wall thickening. There is diffuse dilatation of the small bowel with fecalization, measuring up to 4.2 cm. Appendix: No evidence of appendicitis. Intraperitoneal space: Unremarkable. No free air. No significant fluid collection. Vasculature: Unremarkable. No abdominal aortic aneurysm. Lymph nodes: Unremarkable. No enlarged lymph nodes. Bladder: Unremarkable as visualized. Reproductive: The uterus is absent. Normal ovaries. Bones/joints: Degenerative spine with scoliosis. No lytic or aggressive lesion. Soft tissues: Unremarkable. CT/CT abdomen pelvis w con* [id number] IMPRESSION: 1. Sclerotic calcified mass in the proximal sigmoid colon is significantly smaller, consistent with treated malignancy. 2. The lesion in the proximal sigmoid colon is causing chronic obstruction of the colon with diffuse dilatation and fecalization of the small bowel. 3. Improved hepatic metastatic disease. Radiation Dose CTDIVOL = (mGy): DLP = 610.12 (mGy-cm)
[2019-10-27 18:36] LABS: Alanine Aminotransferase 12 U/L (0-33); Albumin Level 3.7 g/dL (3.5-5.2); Alkaline Phosphatase 110 IU/L (35-105); Anion Gap 18.6 (5-19); Aspartate Amino Transferase 22 U/L (0-32); Blood Urea Nitrogen 14 mg/dL (8-23); Carbon Dioxide 22 mmol/L (22-29); Chloride 100 mmol/L (98-107); Globulin 2.8 g/dL (1.3-4.6); Glucose 186 mg/dL (65-115); Potassium 3.6 mmol/L (3.5-5.1); Sodium 137 mmol/L (136-145); Total Bilirubin 0.6 mg/dL (0.15-1.2); Total Protein 6.5 g/dL (6.6-8.7)
[2019-10-27] MEDS: sodium chloride 0.9% 1,000 ML 999 ML IV (18:36)
[2019-10-27] MEDS: ondansetron 2 mg/ML SDV 2 mL 4 MG IVP (18:38)
--- NOTE | 2019-10-27 19:01 | PC.NURSE ---
Report received from AUDRA Cabrera and care transferred to AUDRA Cruz
--- NOTE | 2019-10-27 19:02 | PC.NURSE ---
Patient in CT
[2019-10-27] MEDS: iohexol 300 mg/mL 100 mL Btl 95 ML IV (19:06)
--- NOTE | 2019-10-27 20:37 | PC.NURSE ---
Patient ambulated to the bathroom with nurse assist, patient stated she felt weak but not dizzy. Patient stated she was tired after walking to the bathroom and back. Patient stated she could not pee at this time.
== END 2019-10-27 21:32 | disposition home or self-care (01) ==
PROVIDERS: Nurse Practitioner Family; Emergency Provider Emergency Medicine
DX: R10.9 Unspecified abdominal pain (principal); K59.00 Constipation, unspecified; K56.609 Unspecified intestinal obstruction, unspecified as to partial versus complete obstruction; E11.9 Type 2 diabetes mellitus without complications; I10 Essential (primary) hypertension; C80.1 Malignant (primary) neoplasm, unspecified; Z79.84 Long term (current) use of oral hypoglycemic drugs
CPT/HCPCS: 36415; 74018; 74177; 80053; 85025; 96360; 96361; 96374; 96375; 99283; J2405; J7030; Q9967

== ENCOUNTER 2019-10-31 05:46 | Outpatient (RCR) | payer MEDICARE, SELFPAY ==
[2019-10-31 08:42] LABS: Basophils % 0.1 %; Hematocrit 45.2 % (37.0-47.0); Hemoglobin 14.9 g/dL (11.5-15.3); Lymphocytes # 1.2 10^3/uL (0.8-4.8); Lymphocytes % 13.3 %; Mean Corpuscular Hemoglobin 28.9 pg (28.0-34.0); Mean Corpuscular Volume 87.8 fL (81-99); Mean Platelet Volume 10.7 fL (7.4-10.4); Monocytes # 0.9 10^3/uL (0.2-0.9); Monocytes % 9.8 %; Neutrophils # 6.7 10^3/uL (1.8-7.7); Neutrophils % 76.5 %; Nucleated Red Blood Cells % 0 %; Platelet Count 282 10^3/cmm (130-400); Red Blood Count 5.15 10^6/uL (4.1-5.3); Red Cell Distribution Width 16.5 % (12.1-15.1); White Blood Count 8.8 10^3/uL (4.0-10.0)
[2019-10-31 08:58] LABS: Alanine Aminotransferase 10 U/L (0-33); Albumin Level 3.2 g/dL (3.5-5.2); Alkaline Phosphatase 105 IU/L (35-105); Anion Gap 20.4 (5-19); Aspartate Amino Transferase 19 U/L (0-32); Blood Urea Nitrogen 21 mg/dL (8-23); Calcium 8.8 mg/dL (8.5-10.5); Carbon Dioxide 25 mmol/L (22-29); Chloride 99 mmol/L (98-107); Globulin 3.2 g/dL (1.3-4.6); Glucose 219 mg/dL (65-115); Magnesium 1.8 mg/dL (1.7-2.3); Potassium 3.4 mmol/L (3.5-5.1); Sodium 141 mmol/L (136-145); Total Bilirubin 0.8 mg/dL (0.15-1.2); Total Protein 6.4 g/dL (6.6-8.7)
[2019-10-31] MEDS: sodium chloride 0.9% 500 ML 999 ML IV (10:23)
== END 2019-10-31 11:00 | disposition home or self-care (01) ==
LOC: ONCMED 05:46
PROVIDERS: Absent Provider Nurse Practitioner; Visit Provider Internal Medicine Hematology & Oncology
DX: E86.0 Dehydration (principal); C18.8 Malignant neoplasm of overlapping sites of colon; C78.7 Secondary malignant neoplasm of liver and intrahepatic bile duct; K59.00 Constipation, unspecified; E87.6 Hypokalemia; E83.42 Hypomagnesemia; R11.2 Nausea with vomiting, unspecified; G89.29 Other chronic pain; M54.5 Low back pain; D64.9 Anemia, unspecified; Z79.899 Other long term (current) drug therapy; Z87.11 Personal history of peptic ulcer disease; Z92.21 Personal history of antineoplastic chemotherapy
CPT/HCPCS: 80053; 83735; 85025; 96361; 96365; 99214; J2405; J7040

== ENCOUNTER 2019-10-31 11:34 | Emergency (ER) | payer MEDICARE, SELFPAY ==
[2019-10-31 11:59] VITALS: BMI 25.5
--- NOTE | 2019-10-31 12:04 | PC.NURSE ---
No rooms available at this time. Patient sent to waiting area at this time. Will continue to monitor.
--- NOTE | 2019-10-31 12:11 | ED_ITS ---
Entered by Yumiko Cee, acting as scribe for HPI - Abdominal Pain General: Chief Complaint: Abdominal Pain Stated Complaint: SENT OVER BY CANCER DOC Time Seen by Provider: 10/31/19 12:19 History of Present Illness: HPI narrative: 79 yo female presents with abd pain. Pt was sent over by Dr. Saucedo's office, he would like us to transfer pt to [facility] in [place], [place]. Pt states that she is nauseated.Pt states that she had a bowel movement on . Patient has nausea but no vomiting. MD elicited complaint: abdominal pain Associated Symptoms: Reports nausea; Denies chills, dysuria, fever(s), hematuria and syncope Review of Systems Const: Denies: fever, chills, body aches, fatigue, malaise or night sweats Eyes: Denies: change in vision or blurry vision ENMT: Denies: throat pain, oral sores/lesions, dental pain, nasal discharge or nasal congestion Card: Denies: chest pain, palpitations, irregular heart rhythm, edema, syncope, shortness of breath on exertion, shortness of breath when lying down or leg pain with exertion Resp: Denies: shortness of breath, productive cough, non-productive cough or wheezing GI: Reports: abdominal pain and nausea : Denies: flank pain, painful urination, urinary frequency, urinary urgency, urinary incontinence or blood in urine Musc: Denies: neck pain, back pain, extremity pain, extremity swelling, joint pain or joint swelling Skin/Breast: Denies: rash, itching or redness Neuro: Denies: headache, numbness in extremities, weakness in extremities, changes in sensation, lack of coordination, difficulty walking, frequent falls, dizziness, vertigo or confusion Psych: Denies: anxiety, depression, loss of interest, visual hallucinations, auditory hallucinations, suicidal ideation or homicidal ideation Endo: Denies: excessive urination, excessive thirst, tired all the time or cold intolerance Deven/Lymph: Denies: easy bruising, easy bleeding, petechiae, enlarged lymph nodes or tender lymph nodes PFSH ED PFSH: Medical History Cancer Diabetes Hypertension Surgical History H/O breast biopsy H/O: hysterectomy Social History Smoking and tobacco status: never smoked Second hand smoke exposure: No Alcohol intake: never Lives independently: Yes Household members: spouse Housing: House Marital status: Current occupational status: retired Current occupational exposures/hazards: No History of recent travel: No Current gender identity: Female Physical Exam Const: COMMON NORMALS: average body habitus, oriented x3 and alert GENERAL APPEARANCE: cooperative, comfortable, well kempt and well developed NUTRITIONAL APPEARANCE: not obese ORIENTATION/CONSCIOUSNESS: Yes awake, Yes oriented to person and Yes oriented to place HENMT: COMMON NORMALS: normocephalic, head/scalp atraumatic, EAC's normal, TM's normal bilaterally, external nose normal, moist oral mucous membranes and oropharynx normal HEAD & SCALP: normocephalic and atraumatic NOSE: external nose normal EXTERNAL AUDITORY CANAL: EAC's normal TYMPANIC MEMBRANE: TM's normal bilaterally MOUTH: oral and palatal mucosa normal, lip normal and tongue normal THROAT: posterior oropharynx normal and tonsils normal Eye: COMMON NORMALS: PERRL, EOMs intact bilaterally, conjunctivae normal and no scleral icterus CONJUNCTIVA: Yes conjunctivae normal PUPIL: Yes PERRL Neck/C-Spine: COMMON NORMALS: full ROM, no lymphadenopathy, supple, no meningeal signs and thyroid normal THYROID: thyroid normal and asymmetrical Lymph: LYMPHATIC: no lymphadenopathy noted Resp: COMMON NORMALS: normal respiratory effort, no retractions, no use of accessory muscles and clear to auscultation bilaterally AUSCULTATION: clear to auscultation bilaterally Cardio: COMMON NORMALS: regular rate and regular rhythm RATE: regular rate RHYTHM: regular rhythm HEART SOUNDS: no murmurs GI: COMMON NORMALS: no hepatosplenomegaly PALPATION: Yes tender (Generalized abdominal pain with no acute findings no peritoneal signs moderate distention bowel sounds positive) and Yes no hepatosplenomegaly : COMMON NORMALS: Yes no CVA tenderness BLADDER/KIDNEY EXAM: Yes no CVA tenderness Back/Pelvis: COMMON NORMALS: no CVA tenderness LUMBAR SPINE/LOWER BACK: Yes normal to inspection Extremity: COMMON NORMALS: no clubbing, cyanosis or edema, no calf tenderness and no pedal edema Neuro: COMMON NORMALS: oriented x3 SENSORIUM/ORIENTATION: Yes alert, Yes oriented to person and Yes oriented to place MENINGEAL SIGNS: Yes no meningeal signs Psych: APPEARANCE: Yes well kempt Skin: COMMON NORMALS: no rashes or lesions noted and skin turgor normal GENERAL SKIN EXAM: no rashes or lesions noted and turgor normal Course ED course: Her son called. She is been being seen in [place] they would like to go back. She probably will need a resection possibly diverting colosto my. We will go ahead and transfer we did do basic labs she was hypokalemic potassium supplementation given. Patient transferred to [facility] see notes below for details. Patient transferred for continuity of care. Consultations: Consultation #1: Spoke with Dinorah at [facility] in [place], [place]. Dr. Hernandez accepted pt. Pt will be going to the ER there as an impatient hold until there is a bed available in the impatient side. Dinorah with the transfer line gave the number for nurse to call report. [phone] Time: 12:17 Vital Signs: Vital signs: Vital Signs Pulse Rate 104 H 10/31/19 14:30 Respiratory Rate 19 H 10/31/19 14:30 Blood Pressure 127/99 10/31/19 14:30 Pulse Oximetry 92 10/31/19 14:30 MDM - Abdominal Pain Lab Data: Labs: Lab Results 10/31/19 10/31/19 Range/Units 12:37 12:37 WBC 6.7 (4.0-10.0) 10^3/ uL RBC 4.93 (4.1-5.3) 10^6/u L Hgb 14.4 (11.5-15.3) g/dL Hct 43.1 (37.0-47.0) % MCV 87.4 (81-99) fL MCH 29.2 (28.0-34.0) pg MCHC 33.4 (30.0-36.0) g/dL RDW 16.4 H (12.1-15.1) % Plt Count 264 (130-400) 10^3/c mm MPV 10.1 (7.4-10.4) fL Neut % (Auto) 72.6 % Lymph % (Auto) 15.2 % [place] % (Auto) 11.4 % Eos % (Auto) 0.0 % Baso % (Auto) 0.3 % Neut # (Auto) 4.8 (1.8-7.7) 10^3/u L Lymph # (Auto) 1.0 (0.8-4.8) 10^3/u L [place] # (Auto) 0.8 (0.2-0.9) 10^3/u L Eos # (Auto) 0.0 (0.0-0.8) 10^3/u L Baso # (Auto) 0.0 (0.0-0.1) 10^3/u L Nucleated RBC % (a uto) 0 % Nucleated RBCs # 0.0 /100WBC Sodium 143 (136-145) mmol/L Potassium 3.3 L (3.5-5.1) mmol/L Chloride 102 (98-107) mmol/L Carbon Dioxide 25 (22-29) mmol/L Anion Gap 19.3 H (5-19) BUN 23 (8-23) mg/dL Creatinine 0.8 (0.5-0.9) mg/dL Glucose 180 H (65-115) mg/dL Calcium 8.6 (8.5-10.5) mg/dL Total Bilirubin 0.7 (0.15-1.2) mg/dL AST 20 (0-32) U/L ALT 11 (0-33) U/L Alkaline Phosphata se 110 H (35-105) IU/L Total Protein 6.2 L (6.6-8.7) g/dL Albumin 3.4 L (3.5-5.2) g/dL Globulin 2.8 (1.3-4.6) g/dL Lipase 8 L (13-60) U/L Discharge Plan Discharge Patient Disposition: Transfer to ED Prescriptions: No Action metformin 500 mg tablet 2,000 mg PO DAILY Qty: 120 RF: 0 dicyclomine 20 mg tablet 20 mg PO TID Qty: 20 RF: 0 Discharge Date/Time: 10/31/19 14:57 Coding Level of Care Code ED Log Clerk for Chg Fwd Exam Comprehensive The documentation recorded by the Coleman jimenez Kialy, accurately reflects the service I personally performed and the decisions made by Abeba raza Curtis L, DO Oct 31, 2019 11:34
--- NOTE | 2019-10-31 12:15 | PC.NURSE ---
Patient reports that she has colon cancer. Patient states that her oncologist wants her sent to [facility] due to her stool, nausea, and vomiting.
[2019-10-31 12:28] VITALS: BP 132/94; PULSE 97; RESP 18; O2SAT 94
[2019-10-31 12:43] LABS: Basophils % 0.3 %; Hematocrit 43.1 % (37.0-47.0); Hemoglobin 14.4 g/dL (11.5-15.3); Lymphocytes % 15.2 %; Mean Corpuscular HGB Conc 33.4 g/dL (30.0-36.0); Mean Corpuscular Hemoglobin 29.2 pg (28.0-34.0); Mean Corpuscular Volume 87.4 fL (81-99); Mean Platelet Volume 10.1 fL (7.4-10.4); Monocytes # 0.8 10^3/uL (0.2-0.9); Monocytes % 11.4 %; Neutrophils # 4.8 10^3/uL (1.8-7.7); Neutrophils % 72.6 %; Nucleated Red Blood Cells % 0 %; Platelet Count 264 10^3/cmm (130-400); Red Blood Count 4.93 10^6/uL (4.1-5.3); Red Cell Distribution Width 16.4 % (12.1-15.1); White Blood Count 6.7 10^3/uL (4.0-10.0)
[2019-10-31 12:44] VITALS: BP 132/94; PULSE 97; RESP 18; O2SAT 94
[2019-10-31] MEDS: sodium chlor 0.9% + KCl 20 mEq 20 MEQ/1,000 ML BAG 125 MEQ IV (12:50)
--- NOTE | 2019-10-31 12:51 | PC.NURSE ---
Port already accessed on admission.
[2019-10-31 12:59] LABS: Alanine Aminotransferase 11 U/L (0-33); Albumin Level 3.4 g/dL (3.5-5.2); Alkaline Phosphatase 110 IU/L (35-105); Anion Gap 19.3 (5-19); Aspartate Amino Transferase 20 U/L (0-32); Blood Urea Nitrogen 23 mg/dL (8-23); Calcium 8.6 mg/dL (8.5-10.5); Carbon Dioxide 25 mmol/L (22-29); Chloride 102 mmol/L (98-107); Globulin 2.8 g/dL (1.3-4.6); Glucose 180 mg/dL (65-115); Lipase 8 U/L (13-60); Potassium 3.3 mmol/L (3.5-5.1); Sodium 143 mmol/L (136-145); Total Bilirubin 0.7 mg/dL (0.15-1.2); Total Protein 6.2 g/dL (6.6-8.7)
[2019-10-31 13:30] VITALS: BP 121/89
[2019-10-31] MEDS: potassium chloride premix 40 MEQ/100 ML PREMIX 25 MEQ IV (13:32)
[2019-10-31 14:30] VITALS: BP 127/99; PULSE 104; RESP 19; O2SAT 92
== END 2019-10-31 14:57 ==
PROVIDERS: Emergency Provider Family Medicine
DX: R10.9 Unspecified abdominal pain (principal); R11.0 Nausea; E87.6 Hypokalemia; E11.9 Type 2 diabetes mellitus without complications; I10 Essential (primary) hypertension; Z79.84 Long term (current) use of oral hypoglycemic drugs; E80.6 Other disorders of bilirubin metabolism; C18.8 Malignant neoplasm of overlapping sites of colon; C78.7 Secondary malignant neoplasm of liver and intrahepatic bile duct; K59.00 Constipation, unspecified; E83.42 Hypomagnesemia; R11.2 Nausea with vomiting, unspecified; G89.29 Other chronic pain; M54.5 Low back pain; Z92.21 Personal history of antineoplastic chemotherapy; D64.9 Anemia, unspecified; Z79.899 Other long term (current) drug therapy; Z87.11 Personal history of peptic ulcer disease
CPT/HCPCS: 36415; 80053; 83690; 83735; 85025; 96361; 96365; 96366; 96367; 99214; 99282; 99283; J2405; J3480; J7040

== ENCOUNTER 2019-11-24 17:48 | Outpatient (CLI) | payer MEDICARE, SELFPAY ==
[2019-11-24 19:41] LABS: Anion Gap 17.6 (5-19); Blood Urea Nitrogen 6 mg/dL (8-23); Calcium 9.5 mg/dL (8.5-10.5); Carbon Dioxide 23 mmol/L (22-29); Chloride 102 mmol/L (98-107); Glucose 131 mg/dL (65-115); Osmolality Calculated 284 mOsm/kg (285-295); Potassium 4.6 mmol/L (3.5-5.1); Sodium 138 mmol/L (136-145)
== END 2019-11-24 17:49 | disposition home or self-care (01) ==
PROVIDERS: Visit Provider Internal Medicine
DX: Z48.3 Aftercare following surgery for neoplasm (principal)
CPT/HCPCS: 80048

== ENCOUNTER 2019-12-02 19:13 | Outpatient (CLI) | payer MEDICARE, SELFPAY ==
[2019-12-02 19:55] LABS: Alanine Aminotransferase 8 U/L (0-33); Albumin Level 2.7 g/dL (3.5-5.2); Alkaline Phosphatase 108 IU/L (35-105); Anion Gap 16.1 (5-19); Aspartate Amino Transferase 14 U/L (0-32); Blood Urea Nitrogen 8 mg/dL (8-23); Calcium 8.6 mg/dL (8.5-10.5); Carbon Dioxide 25 mmol/L (22-29); Chloride 103 mmol/L (98-107); Globulin 3.7 g/dL (1.3-4.6); Glucose 117 mg/dL (65-115); Osmolality Calculated 287 mOsm/kg (285-295); Potassium 4.1 mmol/L (3.5-5.1); Sodium 140 mmol/L (136-145); Total Bilirubin 0.2 mg/dL (0.15-1.2); Total Protein 6.4 g/dL (6.6-8.7)
== END 2019-12-02 19:14 | disposition home or self-care (01) ==
LOC: LAB 19:15
PROVIDERS: Visit Provider Internal Medicine
DX: C18.7 Malignant neoplasm of sigmoid colon (principal)
CPT/HCPCS: 80053

== ENCOUNTER 2019-12-08 17:35 | Outpatient (RCR) | payer MEDICARE, SELFPAY ==
[2019-12-08 17:42] LABS: Basophils # 0.1 10^3/uL (0.0-0.1); Basophils % 0.7 %; Eosinophils # 0.1 10^3/uL (0.0-0.8); Eosinophils % 0.8 %; Hematocrit 36.6 % (37.0-47.0); Hemoglobin 11.2 g/dL (11.5-15.3); Lymphocytes # 1.4 10^3/uL (0.8-4.8); Lymphocytes % 19.4 %; Mean Corpuscular HGB Conc 30.6 g/dL (30.0-36.0); Mean Corpuscular Hemoglobin 28.7 pg (28.0-34.0); Mean Corpuscular Volume 93.8 fL (81-99); Mean Platelet Volume 10.1 fL (7.4-10.4); Monocytes # 0.5 10^3/uL (0.2-0.9); Monocytes % 6.3 %; Neutrophils # 5.1 10^3/uL (1.8-7.7); Neutrophils % 72.4 %; Nucleated Red Blood Cells % 0 %; Platelet Count 321 10^3/cmm (130-400); Red Cell Distribution Width 14.8 % (12.1-15.1); White Blood Count 7.1 10^3/uL (4.0-10.0)
[2019-12-08 18:41] LABS: Anion Gap 20.2 (5-19); Blood Urea Nitrogen 7 mg/dL (8-23); Calcium 9.8 mg/dL (8.5-10.5); Carbon Dioxide 19 mmol/L (22-29); Chloride 102 mmol/L (98-107); Glucose 146 mg/dL (65-115); Osmolality Calculated 282 mOsm/kg (285-295); Potassium 4.2 mmol/L (3.5-5.1); Sodium 137 mmol/L (136-145)
== END 2019-12-13 23:59 | disposition home or self-care (01) ==
LOC: LAB 17:35
PROVIDERS: Internal Medicine Hematology & Oncology; Visit Provider Internal Medicine
DX: C18.7 Malignant neoplasm of sigmoid colon (principal)
CPT/HCPCS: 80048; 85025

== ENCOUNTER 2019-12-29 09:32 | Outpatient (CLI) | payer MEDICARE, SELFPAY ==
--- NOTE | 2019-11-01 12:34 | ONC FU_ITS ---
Dr. Cat follow up note Patient: Elaine Gomez Unit #: [id number]: [id number] Dicatated By: Abdullahi Cat M.D.Date of Visit:Oct 31, 2019 Onc Med Follow-up/Prog Note History of Present Illness: Mrs. Byrne is a 79-year-old female with history of chronic back pain for which she was taking ibuprofen for the last 4 months. She went to see her primary care physician for routine lab workup and follow-up and found to have severe anemia. Her CBC checked on 05/05/2019 shows white blood count 7.2 hemoglobin 6.7 crit 23.2 platelets 367,000 MCV 65.5 iron studies showed ferritin 6 iron 17 saturation for TIBC 425 and CMP was within normal range. Patient was given 2 units of packed RBCs. Patient said she was feeling weak and tired but thought it was due to old age . She had had no palpitations, no shortness of breath, no history of melena or hematochezia, no history of jaundice, no history of weight loss, no history of hemoptysis or hematemesis, no history of hematuria. No history of weight loss. No history of abdominal pain. Patient has history of peptic ulcer in the past. Last colonoscopy was done 5 years ago and at that time she was found to have some polyps, there were removed as per patient it was negative for any malignancy. Mrs Gomez underwent EGD and colonoscopy by Dr. Haas on 06/07/2019 Showed distal colon/sigmoid mass and biopsy was obtained which shows infiltrating adenocarcinoma CT scan of abdomen pelvis done on 06/08/2019 showed colonic mass involving descending and sigmoid colon with luminal narrowing measuring over length of 6.4 cm and normal size liver. There are several hypoechoic nodules within the liver. The largest and most concerning is in the inferior right lobe measuring 2.2 x 1.3 cm. There are a few additional scattered hypodensities within the remaining liver. CT PET scan done on 06/18/2019 showed hypermetabolic colonic mass in the descending colon at sigmoid with SUV of 18.7. And two hypermetabolic hepatic lesions also seen, one is in the lateral right lobe, segment 7 measuring 1.2 cm with SUV 5.3 and second one in the left lobe measuring 1.3 cm with SUV of 6.5 Next generation sequencing showed K-marti/N marti wild type,BRAF mutation not detected, MSI/MMR intact. recommended treatment with modified FOLFOX and vectibix. She began her first treatment on July 18, 2019 After 6 treatments, follow-up CT PET scan done on 10/14/2019 showed resolution of hepatic metastatic disease and significant improvement in the rectosigmoid mass now SUV 10.75 compared to 18.7 on 06/18/2019. Her last chemotherapy was on October 03, 2019 which completed 6 cycles of FOLFOX and vectibix. She states tentative surgery is planned for December 2019. This is planned to be done in [place] under the care of her son, Dr. Dakota Gomez.during 1 week follow-up as she was having hypokalemia and hypomagnesemia. Her last potassium infusion was 20 mEq here on October 17, 2019. She is taking 20 mEq daily at home. Subsequently started having nausea and off and on vomiting and abdominal cramping was treated with hydration and symptomatic as outpatient on 10/27/2019 patient went to [facility] with persistent but progressive abdominal pain nausea vomiting and underwent CT scan of abdomen pelvis which showed new 0.9 cm hypodense nodule in the anterior left liver lobe. The other low-density nodules previously identified in the liver are not visualized. Calcified sclerotic lesion in the proximal sigmoid colon with distended stool filled colon proximal to the lesion with the mild wall thickening. There is a diffuse dilatation of small bowel with fecalization , measuring up to 4.2 cm. No abdominal or pelvic lymphadenopathy seen. Came for follow-up, still complaining of nausea vomiting and poor oral intake, generalized weakness and fatigue, no hemoptysis or hematemesis, also complaining of constipation since CT scan of abdomen was done on 10/27/2019 , contributing constipation to not eating well. No jaundice, but mild abdominal cramping. Medications: Furosemide 1 Tablet (of 40 mg) Oral daily, Glimepiride 1 Tablet (of 2 mg) Oral b.i.d., LORazepam 0.5 - 1 Tablet (of 1 mg) Oral t.i.d. PRN, Losartan Potassium 1 Tablet (of 100 mg) Oral daily, metFORMIN HCl 2 Tablet (of 500 mg) Oral b.i.d., Potassium Chloride ER 2 Tablet (of 10 meq) Tablet, controlled release Oral daily, Pravastatin Sodium 1 Tablet (of 40 mg) Oral daily, Prochlorperazine Maleate 1 Tablet (of 10 mg) Oral q 4 hours PRN Allergies: Penicillin Review of Systems: Constitutional - Appetite is poor and weight is stable. No fever, chills, hot flashes, or night sweats. Energy level is poor, ENMT - No sinus congestion/drainage. No mouth sores. No sore throat or difficulty swallowing, Hematologic/Lymphatic - No abnormal bruising or bleeding, Respiratory - No shortness of breath. No cough. No pleuritic pain or hemoptysis, Cardiovascular - No angina pain. No palpitations, Gastrointestinal - Positive for nausea and vomiting. No heartburn or acid reflux. No diarrhea. Positive for constipation. No blood in the stool or black stools, Genitourinary (F) - No dysuria or hematuria. No urinary frequency. No urgency or incontinence, Musculoskeletal - Positive for back pain, Neurologic - No headache or dizziness. Pt reports numbness in fingers when exposed to cold temperatures, Psychiatric - No anxiety or depression. No insomnia. Vital Signs: Performed on Oct 31, 2019 09:04 Height - 60.00 in Weight - 131 lbs (LOW) BSA - 1.56 sq.m BMI - 25.58 Temperature - 97.8 F (LOW) Pulse - 102 /min (HIGH) Respiration - 17 /min BP - 128/79 mm(hg) O2 Sat - 95 % (LOW) Pain - 0 Performance Status: 2 - Ambulatory/capable of all self-care, unable to perform any work activities. Up and about more than 50% of waking hours. (ECOG) Physical Examination: ENMT - No oral exudates, ulcers, masses, thrush or mucositis. Oropharynx clear. Tongue normal, Respiratory - Lungs are clear to auscultation without rhonchi or wheezing, Abdomen - Non-tender, mildly distended, Good bowel sounds. No guarding or rebound tenderness. No pulsatile masses, Extremities - no edema. Lab/Imaging: Test performed on Oct 24, 2019 10:08 Magnesium 1.2 mg/dL Sodium 139 mmol/L Potassium 2.9 mmol/L Chloride 99 mmol/L CO2 24 mmol/L Anion Gap 18.9 BUN 9 mg/dL Creatinine 0.7 mg/dL Cr Clearance (Est) 69.9000 mL/min Glucose 156 mg/dL Calcium 9.1 mg/dL Protein, Total 6.8 g/dL Albumin 3.9 g/dL Globulin 2.9 g/dL Bilirubin, Total 0.6 mg/dL ALT (SGPT) 15 U/L AST (SGOT) 28 U/L Alkaline Phosphatase 110 IU/L WBC 6.1 10 3/uL RBC 4.94 10 6/uL HGB 14.7 g/dL HCT 45.3 % MCV 91.7 fL MCH 29.8 pg MCHC 32.5 g/dL RDW 16.9 % Platelet Count 260 10 3/cmm MPV 10.0 fL Neutrophils 3.9 10 3/uL Lymphocytes 1.2 10 3/uL Monocytes 0.9 10 3/uL Eosinophils 0.0 10 3/uL Basophils 0.0 10 3/uL Neutrophil % 63.3 % Lymphocyte % 19.7 % Monocyte % 14.3 % Eosinophil % 0.3 % Basophils % 0.3 % Test performed on Oct 03, 2019 09:07 CEA 5.9 ng/mL Test performed on Oct 03, 2019 08:53 Manual Lymphocytes 23.5 % Manual Monocytes 11 % Manual Eosinophils 2.7 % Manual Basophils 0.7 % NRBCs 0 /100 WBC Impression: Moderately differentiated infiltrating adenocarcinoma involving distal colon/sigmoid colon per colonoscopy done on 06/07/2019 CT scan of abdomen done on 06/08/2019 showed short segment 80 of significant circumferential mucosal thickening extending over mental 6.4 cm involving descending colon and proximal sigmoid. Moderate narrowing of the lumen. There is adjacent pericolonic stranding with a wall thickening and soft tissue infiltration. There is a small adjacent lymph node measuring 5 mm. Normal size liver. There are several hypoechoic nodules within the liver. The largest and most concerning is the inferior right lobe measuring 2.2 x 1.3 cm there are a few additional scattered hypodensities within the remaining liver. CEA checked on 06/15/2019 was 6.3 Well compensated, Microcytic hypochromic anemia due to iron deficiency Most likely due to bleeding from colon cancer CBC done on 05/05/2019 showed white blood count 7.2 hemoglobin 6.7 hematocrit 23.2 MCV 65.5 platelets 367,000 and ferritin 6, iron saturation 4%, iron 17. Status post 2 units of packed RBC with that her repeat CBC done on 05/24/2019 showed white blood count 5.5 hemoglobin 9.1 g, hematocrit 29.4 MCV 70.9 platelets 320,000 with a normal differential. colonoscopy was done 5 years ago, some polyps were removed, as per patient, there were benign. Distant past history of peptic ulcer disease. discussed with Mrs Gomez regarding her CT PET scan which confirmed hepatic metastatic disease and next initially sequencing which showed MSI/MMR intact, K-marti/ Nras wild type, BRAF no mutation detected. Dr Cat dicussed the role of systemic chemotherapy in stage IV colon cancer was discussed with the patient and family and earlier with her son, Dakota gomez, who is a surgeon in [facility]. Based on next gene sequencing, Dr Cat recommended that she proceed with panitumumab 6 mg/kg every 2 weeks along with FOLFOX. Considering her age and this stage IV disease, there was consideration for dose modification. She did obtain Port-A-Cath placement to facilitate chemotherapy. The plan was to give her 6 cycles of this regimen followed by CT PET scan to assess the response. Her last chemotherapy was on 10/03/2019 which completed 6 cycles of chemotherapy. Follow-up CT PET scan done after 6 cycles of hemotherapy with FOLFOX/panitumumab showed excellent response with resolution of hepatic metastatic disease and significant improvement in the primary in the rectosigmoid colon: SUV 10.75 compared to 18.7 at the time of diagnosis. Dr Cat has recommed that she hold her chemotherapy and refer her to surgery, her son is a surgeon in [place], who will arrange the surgery. Mrs Gomez indicated that it may be December/January before she has surgery as she understood she would need several months to build up and recover . Dr Cat does plan to see her back after surgery is done for further management. In the interim she will have supportive care as needed. She has been having hypokalemia and hypomagnesium. Plan: Discussed with patient regarding her labs white blood count 8.8 hemoglobin 14.9 crit 45.2 platelets 282,000 CMP within normal limit except potassium 3.4 compared to 2.9 on 10/24/2019 and glucose 219. Clinically, patient is in moderate distress due to persistent nausea vomiting and abdominal cramps now with abdominal fullness due to persistent constipation and her CT scan of abdomen pelvis done on 10/27/2019 showed chronic obstruction with a small bowel dilatation with fecalization . Case was discussed with her son Dr. Dakota Gomez, who the surgeon in [place] and family decided to move her to [place] for further care as patient has chronic obstruction need colonoscopy to release the chronic constipation or diverting colostomy or sigmoid colon resection, the site of the primary. We will send her [facility] for evaluation to ensure the patient is stable for transportation if not then manage her as inpatient till stabilized. Signed By: Abdullahi Cat M.D. <<Signature on File>>
[2019-12-29 10:02] LABS: Basophils # 0.1 10^3/uL (0.0-0.1); Basophils % 1.1 %; Eosinophils # 0.2 10^3/uL (0.0-0.8); Eosinophils % 2.6 %; Hematocrit 39.5 % (37.0-47.0); Hemoglobin 12.1 g/dL (11.5-15.3); Lymphocytes # 1.2 10^3/uL (0.8-4.8); Lymphocytes % 17.7 %; Mean Corpuscular HGB Conc 30.6 g/dL (30.0-36.0); Mean Corpuscular Hemoglobin 29.1 pg (28.0-34.0); Mean Platelet Volume 10.2 fL (7.4-10.4); Monocytes # 0.4 10^3/uL (0.2-0.9); Monocytes % 6.6 %; Neutrophils # 4.8 10^3/uL (1.8-7.7); Neutrophils % 71.7 %; Nucleated Red Blood Cells % 0 %; Platelet Count 202 10^3/cmm (130-400); Red Blood Count 4.16 10^6/uL (4.1-5.3); Red Cell Distribution Width 14.6 % (12.1-15.1); White Blood Count 6.7 10^3/uL (4.0-10.0)
[2019-12-29 10:22] LABS: Alanine Aminotransferase 9 U/L (0-33); Albumin Level 4.1 g/dL (3.5-5.2); Alkaline Phosphatase 98 IU/L (35-105); Anion Gap 17.9 (5-19); Aspartate Amino Transferase 17 U/L (0-32); Blood Urea Nitrogen 8 mg/dL (8-23); Calcium 10.2 mg/dL (8.5-10.5); Carbon Dioxide 24 mmol/L (22-29); Chloride 102 mmol/L (98-107); Globulin 3.1 g/dL (1.3-4.6); Glucose 130 mg/dL (65-115); Osmolality Calculated 288 mOsm/kg (285-295); Potassium 3.9 mmol/L (3.5-5.1); Sodium 140 mmol/L (136-145); Total Bilirubin 0.3 mg/dL (0.15-1.2); Total Protein 7.2 g/dL (6.6-8.7)
--- NOTE | 2019-12-30 18:01 | ONC FU_ITS ---
Dr. Cat follow up note Patient: Elaine Gomez Unit #: [id number]: [id number] Dicatated By: Abdullahi Cat M.D.Date of Visit:Dec 29, 2019 Onc Med Follow-up/Prog Note History of Present Illness: Mrs. Byrne is a 79-year-old female with history of chronic back pain for which she was taking ibuprofen for the last 4 months. She went to see her primary care physician for routine lab workup and follow-up and found to have severe anemia. Her CBC checked on 05/05/2019 shows white blood count 7.2 hemoglobin 6.7 crit 23.2 platelets 367,000 MCV 65.5 iron studies showed ferritin 6 iron 17 saturation for TIBC 425 and CMP was within normal range. Patient was given 2 units of packed RBCs. Patient said she was feeling weak and tired but thought it was due to old age . She had had no palpitations, no shortness of breath, no history of melena or hematochezia, no history of jaundice, no history of weight loss, no history of hemoptysis or hematemesis, no history of hematuria. No history of weight loss. No history of abdominal pain. Patient has history of peptic ulcer in the past. Last colonoscopy was done 5 years ago and at that time she was found to have some polyps, there were removed as per patient it was negative for any malignancy. Mrs Gomez underwent EGD and colonoscopy by Dr. Haas on 06/07/2019 Showed distal colon/sigmoid mass and biopsy was obtained which shows infiltrating adenocarcinoma CT scan of abdomen pelvis done on 06/08/2019 showed colonic mass involving descending and sigmoid colon with luminal narrowing measuring over length of 6.4 cm and normal size liver. There are several hypoechoic nodules within the liver. The largest and most concerning is in the inferior right lobe measuring 2.2 x 1.3 cm. There are a few additional scattered hypodensities within the remaining liver. CT PET scan done on 06/18/2019 showed hypermetabolic colonic mass in the descending colon at sigmoid with SUV of 18.7. And two hypermetabolic hepatic lesions also seen, one is in the lateral right lobe, segment 7 measuring 1.2 cm with SUV 5.3 and second one in the left lobe measuring 1.3 cm with SUV of 6.5 Next generation sequencing showed K-marti/N marti wild type,BRAF mutation not detected, MSI/MMR intact. recommended treatment with modified FOLFOX and vectibix. She began her first treatment on July 18, 2019 After 6 treatments, follow-up CT PET scan done on 10/14/2019 showed resolution of hepatic metastatic disease and significant improvement in the rectosigmoid mass now SUV 10.75 compared to 18.7 on 06/18/2019. Her last chemotherapy was on October 03, 2019 which completed 6 cycles of FOLFOX and vectibix. She states tentative surgery is planned for December 2019. This is planned to be done in [place] under the care of her son, Dr. Dakota Gomez.during 1 week follow-up as she was having hypokalemia and hypomagnesemia. Her last potassium infusion was 20 mEq here on October 17, 2019. She is taking 20 mEq daily at home. Subsequently started having nausea and off and on vomiting and abdominal cramping was treated with hydration and symptomatic as outpatient on 10/27/2019 patient went to [facility] with persistent but progressive abdominal pain nausea vomiting and underwent CT scan of abdomen pelvis which showed new 0.9 cm hypodense nodule in the anterior left liver lobe. The other low-density nodules previously identified in the liver are not visualized. Calcified sclerotic lesion in the proximal sigmoid colon with distended stool filled colon proximal to the lesion with the mild wall thickening. There is a diffuse dilatation of small bowel with fecalization , measuring up to 4.2 cm. No abdominal or pelvic lymphadenopathy seen. Patient came to office on 10/31/2019 with progressive constipation no abdominal pain, at that time clinical impression was colon obstruction versus ileus, case was discussed with her son Dr. Dakota Gomez in [facility], patient was sent to [facility] via ambulance and underwent sigmoid colon resection on 11/03/2019 final pathology report showed residual tumor, 3.5 cm moderately differentiated, tumor invades through muscularis propria into pericolic colorectal tissue with clear surgical margin and, lymphovascular invasion present ypT3 , 4/ 16 lymph nodes showed metastatic disease ypN2a. Patient tolerated procedure well Came for follow-up today denies any specific complaints except generalized weakness and fatigue but overall recovering well. No nausea or vomiting, no diarrhea constipation, no fever or chills. No abdominal pain, surgical wound healed. No jaundice. Appetite is getting better. Medications: Furosemide 1 Tablet (of 40 mg) Oral daily, Glimepiride 1 Tablet (of 2 mg) Oral b.i.d., LORazepam 0.5 - 1 Tablet (of 1 mg) Oral t.i.d. PRN, Losartan Potassium 1 Tablet (of 100 mg) Oral daily, metFORMIN HCl 2 Tablet (of 500 mg) Oral b.i.d., Potassium Chloride ER 2 Tablet (of 10 meq) Tablet, controlled release Oral daily, Pravastatin Sodium 1 Tablet (of 40 mg) Oral daily, Prochlorperazine Maleate 1 Tablet (of 10 mg) Oral q 4 hours PRN Allergies: Penicillin Review of Systems: Constitutional - Appetite is poor and weight has decreased. No fever, chills, hot flashes, or night sweats. Energy level is poor, ENMT - No sinus congestion/drainage. No mouth sores. No sore throat or difficulty swallowing, Hematologic/Lymphatic - No abnormal bruising or bleeding, Respiratory - No shortness of breath. No cough. No pleuritic pain or hemoptysis, Cardiovascular - No angina pain. No palpitations, Gastrointestinal - Positive for nausea and vomiting. No heartburn or acid reflux. No diarrhea. Positive for constipation. No blood in the stool or black stools, Genitourinary (F) - No dysuria or hematuria. No urinary frequency. No urgency or incontinence, Musculoskeletal - Positive for back pain, Neurologic - No headache or dizziness, Psychiatric - No anxiety or depression. No insomnia. Vital Signs: Performed on Dec 29, 2019 10:25 Height - 60.00 in Weight - 129.4 lbs (LOW) BSA - 1.55 sq.m BMI - 25.27 Temperature - 97.8 F (LOW) Pulse - 74 /min Respiration - 17 /min BP - 156/84 mm(hg) (HIGH) O2 Sat - 96 % Pain - 0 Performance Status: 1 - No physically strenuous activity, but ambulatory and able to carry out light or sedentary work (e.g. office work, light house work). (ECOG) Physical Examination: ENMT - no mouth sores or thrush, Respiratory - Lungs are clear to auscultation, Cardiovascular - Regular rate and rhythm of heart, Abdomen - well-healed midline surgical scar, bowel sounds present, no tenderness, Extremities - no edema or rash. Lab/Imaging: Test performed on Dec 29, 2019 09:46 Sodium 140 mmol/L Potassium 3.9 mmol/L Chloride 102 mmol/L CO2 24 mmol/L Anion Gap 17.9 BUN 8 mg/dL Creatinine 0.5 mg/dL Cr Clearance (Est) 84.54 mL/min Glucose 130 mg/dL Calcium 10.2 mg/dL Protein, Total 7.2 g/dL Albumin 4.1 g/dL Globulin 3.1 g/dL Bilirubin, Total 0.3 mg/dL ALT (SGPT) 9 U/L AST (SGOT) 17 U/L Alkaline Phosphatase 98 IU/L WBC 6.7 10 3/uL RBC 4.16 10 6/uL HGB 12.1 g/dL HCT 39.5 % MCV 95.0 fL MCH 29.1 pg MCHC 30.6 g/dL RDW 14.6 % Platelet Count 202 10 3/cmm MPV 10.2 fL Neutrophils 4.8 10 3/uL Lymphocytes 1.2 10 3/uL Monocytes 0.4 10 3/uL Eosinophils 0.2 10 3/uL Basophils 0.1 10 3/uL Neutrophil % 71.7 % Lymphocyte % 17.7 % Monocyte % 6.6 % Eosinophil % 2.6 % Basophils % 1.1 % Test performed on Oct 31, 2019 08:19 Magnesium 1.8 mg/dL Test performed on Oct 03, 2019 09:07 CEA 5.9 ng/mL Test performed on Oct 03, 2019 08:53 Manual Lymphocytes 23.5 % Manual Monocytes 11 % Manual Eosinophils 2.7 % Manual Basophils 0.7 % NRBCs 0 /100 WBC Impression: Moderately differentiated infiltrating adenocarcinomaStatus post sigmoid colon resection done on 11/03/2019 final pathology report showed 3.5 cm moderately differentiated adenocarcinoma tumor invades through muscularis propria into pericolorectal fat ypT3 and 4 out of 16 lymph node examined showed metastatic disease ypN2a MMR D intact CT scan of abdomen done on 06/08/2019 showed short segment 80 of significant circumferential mucosal thickening extending over mental 6.4 cm involving descending colon and proximal sigmoid. Moderate narrowing of the lumen. There is adjacent pericolonic stranding with a wall thickening and soft tissue infiltration. There is a small adjacent lymph node measuring 5 mm. Normal size liver. There are several hypoechoic nodules within the liver. The largest and most concerning is the inferior right lobe measuring 2.2 x 1.3 cm there are a few additional scattered hypodensities within the remaining liver. CEA checked on 06/15/2019 was 6.3 Well compensated, Microcytic hypochromic anemia due to iron deficiency Most likely due to bleeding from colon cancer CBC done on 05/05/2019 showed white blood count 7.2 hemoglobin 6.7 hematocrit 23.2 MCV 65.5 platelets 367,000 and ferritin 6, iron saturation 4%, iron 17. Status post 2 units of packed RBC with that her repeat CBC done on 05/24/2019 showed white blood count 5.5 hemoglobin 9.1 g, hematocrit 29.4 MCV 70.9 platelets 320,000 with a normal differential. colonoscopy was done 5 years ago, some polyps were removed, as per patient, there were benign. Distant past history of peptic ulcer disease. discussed with Mrs Gomez regarding her CT PET scan which confirmed hepatic metastatic disease and next initially sequencing which showed MSI/MMR intact, K-marti/ Nras wild type, BRAF no mutation detected. Dr Cat dicussed the role of systemic chemotherapy in stage IV colon cancer was discussed with the patient and family and earlier with her son, Dakota gomez, who is a surgeon in [facility]. Based on next gene sequencing, Dr Cat recommended that she proceed with panitumumab 6 mg/kg every 2 weeks along with FOLFOX. Considering her age and this stage IV disease, there was consideration for dose modification. She did obtain Port-A-Cath placement to facilitate chemotherapy. The plan was to give her 6 cycles of this regimen followed by CT PET scan to assess the response. Her last chemotherapy was on 10/03/2019 which completed 6 cycles of chemotherapy. Follow-up CT PET scan done after 6 cycles of hemotherapy with FOLFOX/panitumumab showed excellent response with resolution of hepatic metastatic disease and significant improvement in the primary in the rectosigmoid colon: SUV 10.75 compared to 18.7 at the time of diagnosis. Dr Cat has recommed that she hold her chemotherapy and refer her to surgery, her son is a surgeon in [place], who will arrange the surgery. Mrs Gomez indicated that it may be December/January before she has surgery as she understood she would need several months to build up and recover . Dr Cat does plan to see her back after surgery is done for further management. In the interim she will have supportive care as needed. She has been having hypokalemia and hypomagnesium. Plan: Discussed with patient regarding her labs white blood count 6.7 hemoglobin 12.1 hematocrit 39.5 platelets 202,000 CMP within normal limits Clinically, patient is doing well, now recovering well from the recent surgery. Further treatment options were discussed in detail with the patient and with her son Dr. Dakota Gomez, and with his medical oncology colleague, iesha Smith today and considering her performance status and age, it was decided to proceed with oral Xeloda 2 weeks on 1 week off and Avastin 7.5 mg/kg every 3 weeks and then follow-up CT PET scan after 3-4 cycles to assess the response and hepatic metastases status. All the side effects possible benefits versus with Xeloda and Avastin including but not limited to bone marrow suppression, rash, hepatic toxicity, [id number] syndrome especially with Xeloda, hypertension, risk of bleeding especially with Avastin was discussed further teaching will be done by chemotherapy nurse. We will obtain approval from her insurance prior to the treatment and considering her performance status and age we will modify her Xeloda dose start her at 850 mg/m??? twice a day from day 1-14 and repeat every 21 days along with 3 weekly Avastin. If tolerated we will titrate up her Xeloda dose to 1250 mg/m??? twice a day day 1 through 14 and repeat every 21 days. Patient was given prescription for Xeloda and in the meantime we'll obtain approval from her insurance regarding her Avastin and once we get approval we will call her and start her treatment and we will see her back in 2 weeks after chemotherapy is initiated with CBC CMP. Signed By: Abdullahi Cat M.D. <<Signature on File>>
== END 2019-12-29 09:33 | disposition home or self-care (01) ==
LOC: ONCMED 09:32
PROVIDERS: PCP Nurse Practitioner Family; Visit Provider Internal Medicine Hematology & Oncology
DX: C18.8 Malignant neoplasm of overlapping sites of colon (principal); C77.2 Secondary and unspecified malignant neoplasm of intra-abdominal lymph nodes; E87.6 Hypokalemia; E83.42 Hypomagnesemia; G89.29 Other chronic pain; M54.9 Dorsalgia, unspecified; Z79.899 Other long term (current) drug therapy; Z87.11 Personal history of peptic ulcer disease; Z90.49 Acquired absence of other specified parts of digestive tract
CPT/HCPCS: 36591; 80053; 85025; 99214

== ENCOUNTER 2020-02-07 06:45 | Outpatient (RCR) | payer MEDICARE, SELFPAY ==
[2020-01-16] MEDS: alteplase 1 mg/mL SDV 2 mL 2 MG IV (14:10)
[2020-01-16] MEDS: sodium chloride 0.9% 250 ML 75 ML IV (16:33)
[2020-02-07] MEDS: alteplase 1 mg/mL SDV 2 mL 2 MG IV (11:00)
[2020-02-07 11:13] LABS: Basophils # 0.1 10^3/uL (0.0-0.1); Basophils % 1.3 %; Eosinophils # 0.1 10^3/uL (0.0-0.8); Eosinophils % 2.9 %; Hematocrit 42.3 % (37.0-47.0); Hemoglobin 13.2 g/dL (11.5-15.3); Lymphocytes # 1.2 10^3/uL (0.8-4.8); Lymphocytes % 25.8 %; Mean Corpuscular HGB Conc 31.2 g/dL (30.0-36.0); Mean Corpuscular Hemoglobin 28.2 pg (28.0-34.0); Mean Corpuscular Volume 90.4 fL (81-99); Mean Platelet Volume 10.3 fL (7.4-10.4); Monocytes # 0.4 10^3/uL (0.2-0.9); Monocytes % 9.2 %; Neutrophils # 2.9 10^3/uL (1.8-7.7); Neutrophils % 60.6 %; Nucleated Red Blood Cells % 0 %; Platelet Count 217 10^3/cmm (130-400); Red Blood Count 4.68 10^6/uL (4.1-5.3); Red Cell Distribution Width 15.3 % (12.1-15.1); White Blood Count 4.8 10^3/uL (4.0-10.0)
[2020-02-07 11:27] LABS: Alanine Aminotransferase 19 U/L (0-33); Albumin Level 4.5 g/dL (3.5-5.2); Alkaline Phosphatase 115 IU/L (35-105); Anion Gap 16.2 (5-19); Aspartate Amino Transferase 22 U/L (0-32); Blood Urea Nitrogen 23 mg/dL (8-23); Calcium 10.6 mg/dL (8.5-10.5); Carbon Dioxide 27 mmol/L (22-29); Chloride 100 mmol/L (98-107); Globulin 2.8 g/dL (1.3-4.6); Glucose 119 mg/dL (65-115); Osmolality Calculated 286 mOsm/kg (285-295); Potassium 4.2 mmol/L (3.5-5.1); Sodium 139 mmol/L (136-145); Total Bilirubin 0.3 mg/dL (0.15-1.2); Total Protein 7.3 g/dL (6.6-8.7)
[2020-02-07] MEDS: sodium chloride 0.9% 250 ML 75 ML IV (11:40)
--- NOTE | 2020-02-12 18:46 | ONC FU_ITS ---
[facility] Patient Note Patient: Elaine Garcia Unit #: [id number]: [id number] Dictated By: Agnes WestfallDate of Visit: February 07, 2020 Onc MED Follow-Up/Prog Note Chief Complaint: Iron deficiency anemia Adenocarcinoma distal/sigmoid colon with liver involvement History of Present Illness: Mrs. Byrne is a 79-year-old female with history of chronic back pain for which she was taking ibuprofen for the last 4 months. She went to see her primary care physician for routine lab workup and follow-up and found to have severe anemia. Her CBC checked on 05/05/2019 shows white blood count 7.2 hemoglobin 6.7 crit 23.2 platelets 367,000 MCV 65.5 iron studies showed ferritin 6 iron 17 saturation for TIBC 425 and CMP was within normal range. Patient was given 2 units of packed RBCs. Patient said she was feeling weak and tired but thought it was due to old age . She had had no palpitations, no shortness of breath, no history of melena or hematochezia, no history of jaundice, no history of weight loss, no history of hemoptysis or hematemesis, no history of hematuria. No history of weight loss. No history of abdominal pain. Patient has history of peptic ulcer in the past. Last colonoscopy was done 5 years ago and at that time she was found to have some polyps, there were removed as per patient it was negative for any malignancy. Mrs Garcia underwent EGD and colonoscopy by Dr. Hasa on 06/07/2019 Showed distal colon/sigmoid mass and biopsy was obtained which shows infiltrating adenocarcinoma CT scan of abdomen pelvis done on 06/08/2019 showed colonic mass involving descending and sigmoid colon with luminal narrowing measuring over length of 6.4 cm and normal size liver. There are several hypoechoic nodules within the liver. The largest and most concerning is in the inferior right lobe measuring 2.2 x 1.3 cm. There are a few additional scattered hypodensities within the remaining liver. CT PET scan done on 06/18/2019 showed hypermetabolic colonic mass in the descending colon at sigmoid with SUV of 18.7. And two hypermetabolic hepatic lesions also seen, one is in the lateral right lobe, segment 7 measuring 1.2 cm with SUV 5.3 and second one in the left lobe measuring 1.3 cm with SUV of 6.5 Next generation sequencing showed K-marti/N marti wild type,BRAF mutation not detected, MSI/MMR intact. recommended treatment with modified FOLFOX and vectibix. She began her first treatment on July 18, 2019 After 6 treatments, follow-up CT PET scan done on 10/14/2019 showed resolution of hepatic metastatic disease and significant improvement in the rectosigmoid mass now SUV 10.75 compared to 18.7 on 06/18/2019. Her last chemotherapy was on October 03, 2019 which completed 6 cycles of FOLFOX and vectibix. She states tentative surgery is planned for December 2019. This is planned to be done in [place] under the care of her son, Dr. Dakota Garcia.during 1 week follow-up as she was having hypokalemia and hypomagnesemia. Her last potassium infusion was 20 mEq here on October 17, 2019. She is taking 20 mEq daily at home. Subsequently started having nausea and off and on vomiting and abdominal cramping was treated with hydration and symptomatic as outpatient on 10/27/[address] [facility] with persistent but progressive abdominal pain nausea vomiting and underwent CT scan of abdomen pelvis which showed new 0.9 cm hypodense nodule in the anterior left liver lobe. The other low-density nodules previously identified in the liver are not visualized. Calcified sclerotic lesion in the proximal sigmoid colon with distended stool filled colon proximal to the lesion with the mild wall thickening. There is a diffuse dilatation of small bowel with fecalization , measuring up to 4.2 cm. No abdominal or pelvic lymphadenopathy seen. Patient came to office on 10/31/2019 with progressive constipation no abdominal pain, at that time clinical impression was colon obstruction versus ileus, case was discussed with her son Dr. Dakota Garcia in [facility], patient was sent to [facility] [place] via ambulance and underwent sigmoid colon resection on 11/03/2019 final pathology report showed residual tumor, 3.5 cm moderately differentiated, tumor invades through muscularis propria into pericolic colorectal tissue with clear surgical margin and, lymphovascular invasion present ypT3 , 4/ 16 lymph nodes showed metastatic disease ypN2a. Patient tolerated procedure well Mrs Garcia presented today for Avastin. She did have followup with Dr Cat, but he was unexpectedly unable to be in the office today. I did review her labs and status. She has no new concerns today. Past Medical History: Hypertension Type II diabetes Past Surgical History: Breast biopsy Hysterectomy Allergies: Penicillin Medications: Furosemide 1 Tablet (of 40 mg) Oral daily Glimepiride 1 Tablet (of 2 mg) Oral b.i.d. LORazepam 0.5 - 1 Tablet (of 1 mg) Oral t.i.d. PRN Losartan Potassium 1 Tablet (of 100 mg) Oral daily metFORMIN HCl 2 Tablet (of 500 mg) Oral b.i.d. Potassium Chloride ER 2 Tablet (of 10 meq) Tablet, controlled release Oral daily Pravastatin Sodium 1 Tablet (of 40 mg) Oral daily Prochlorperazine Maleate 1 Tablet (of 10 mg) Oral q 4 hours PRN Family History: Ms. Garcia's mother at age 85: old age. Ms. Garcia's father at age 70: myocardial infaraction. Social History: Ms. Garcia is and she is retired. Ms. Garcia has never smoked. She has no history of drinking. Vital Signs: Performed on February 07, 2020 12:15 Height - 60.00 in Temperature - 97.5 F (LOW) Pulse - 65 /min Respiration - 18 /min BP - 137/81 mm(hg) O2 Sat - 96 % Pain - 0 Fatigue - 0, Laboratory:Test performed on February 07, 2020 11:00 Sodium 139 mmol/L Potassium 4.2 mmol/L Chloride 100 mmol/L CO2 27 mmol/L Anion Gap 16.2 BUN 23 mg/dL Creatinine 0.8 mg/dL Cr Clearance (Est) 52.8400 mL/min Glucose 119 mg/dL Calcium 10.6 mg/dL Protein, Total 7.3 g/dL Albumin 4.5 g/dL Globulin 2.8 g/dL Bilirubin, Total 0.3 mg/dL ALT (SGPT) 19 U/L AST (SGOT) 22 U/L Alkaline Phosphatase 115 IU/L WBC 4.8 10 3/uL RBC 4.68 10 6/uL HGB 13.2 g/dL HCT 42.3 % MCV 90.4 fL MCH 28.2 pg MCHC 31.2 g/dL RDW 15.3 % Platelet Count 217 10 3/cmm MPV 10.3 fL Neutrophils 2.9 10 3/uL Lymphocytes 1.2 10 3/uL Monocytes 0.4 10 3/uL Eosinophils 0.1 10 3/uL Basophils 0.1 10 3/uL Neutrophil % 60.6 % Lymphocyte % 25.8 % Monocyte % 9.2 % Eosinophil % 2.9 % Basophils % 1.3 % Mrs. Garcia is here today for chemotherapy. Her labs were reviewed and she states she is doing well with no complaints. Based on her current status and laboratory results. Mrs. Garcia was given approval to proceed with her chemotherapy today. She will be due to return back in 3 weeks with CBC CMP UA and CEA. She will be due for repeat Avastin at that time. Mrs. Garcia is instructed to contact us in the interim should questions or problems arise. Signed By: Agnes Westfall-, AOCNP Abdullahi Cat MD <<Signature on File>>
== END 2020-02-12 23:59 | disposition home or self-care (01) ==
LOC: ONCMED 06:45
PROVIDERS: PCP Nurse Practitioner Family; Visit Provider Nurse Practitioner
DX: Z51.11 Encounter for antineoplastic chemotherapy (principal); C18.8 Malignant neoplasm of overlapping sites of colon; C78.7 Secondary malignant neoplasm of liver and intrahepatic bile duct; I10 Essential (primary) hypertension; E11.9 Type 2 diabetes mellitus without complications
CPT/HCPCS: 36593; 80053; 85025; 96375; 96413; G0463; J2997; J7050; J9035

== ENCOUNTER 2020-02-29 07:20 | Outpatient (RCR) | payer MEDICARE, SELFPAY ==
[2020-02-29] MEDS: alteplase 1 mg/mL SDV 2 mL 2 MG IV ×2 (11:30→12:45)
[2020-02-29 12:14] LABS: Basophils # 0.1 10^3/uL (0.0-0.1); Basophils % 0.9 %; Eosinophils # 0.2 10^3/uL (0.0-0.8); Eosinophils % 2.8 %; Hematocrit 43.2 % (37.0-47.0); Hemoglobin 13.5 g/dL (11.5-15.3); Lymphocytes # 1.3 10^3/uL (0.8-4.8); Lymphocytes % 22.7 %; Mean Corpuscular HGB Conc 31.3 g/dL (30.0-36.0); Mean Corpuscular Hemoglobin 28.1 pg (28.0-34.0); Mean Corpuscular Volume 89.8 fL (81-99); Mean Platelet Volume 10.9 fL (7.4-10.4); Monocytes # 0.5 10^3/uL (0.2-0.9); Monocytes % 8.7 %; Neutrophils # 3.7 10^3/uL (1.8-7.7); Neutrophils % 64.6 %; Nucleated Red Blood Cells % 0 %; Platelet Count 200 10^3/cmm (130-400); Red Blood Count 4.81 10^6/uL (4.1-5.3); Red Cell Distribution Width 16.6 % (12.1-15.1); White Blood Count 5.8 10^3/uL (4.0-10.0)
[2020-02-29 12:22] LABS: Alanine Aminotransferase 21 U/L (0-33); Albumin Level 4.3 g/dL (3.5-5.2); Alkaline Phosphatase 105 IU/L (35-105); Anion Gap 15.3 (5-19); Aspartate Amino Transferase 23 U/L (0-32); Blood Urea Nitrogen 21 mg/dL (8-23); Calcium 9.8 mg/dL (8.5-10.5); Carbon Dioxide 27 mmol/L (22-29); Chloride 100 mmol/L (98-107); Globulin 2.9 g/dL (1.3-4.6); Glucose 103 mg/dL (65-115); Osmolality Calculated 283 mOsm/kg (285-295); Potassium 4.3 mmol/L (3.5-5.1); Sodium 138 mmol/L (136-145); Total Bilirubin 0.5 mg/dL (0.15-1.2); Total Protein 7.2 g/dL (6.6-8.7)
--- NOTE | 2020-02-29 13:28 | ONC FU_ITS ---
Dr. Cat follow up note Patient: Elaine Gomez Unit #: [id number]: [id number] Dicatated By: Abdullahi Cat M.D.Date of Visit:Feb 29, 2020 Onc Med Follow-up/Prog Note History of Present Illness: Mrs. Byrne is a 79-year-old female with history of chronic back pain for which she was taking ibuprofen for the last 4 months. She went to see her primary care physician for routine lab workup and follow-up and found to have severe anemia. Her CBC checked on 05/05/2019 shows white blood count 7.2 hemoglobin 6.7 crit 23.2 platelets 367,000 MCV 65.5 iron studies showed ferritin 6 iron 17 saturation for TIBC 425 and CMP was within normal range. Patient was given 2 units of packed RBCs. Patient said she was feeling weak and tired but thought it was due to old age . She had had no palpitations, no shortness of breath, no history of melena or hematochezia, no history of jaundice, no history of weight loss, no history of hemoptysis or hematemesis, no history of hematuria. No history of weight loss. No history of abdominal pain. Patient has history of peptic ulcer in the past. Last colonoscopy was done 5 years ago and at that time she was found to have some polyps, there were removed as per patient it was negative for any malignancy. Mrs Gomez underwent EGD and colonoscopy by Dr. Haas on 06/07/2019 Showed distal colon/sigmoid mass and biopsy was obtained which shows infiltrating adenocarcinoma CT scan of abdomen pelvis done on 06/08/2019 showed colonic mass involving descending and sigmoid colon with luminal narrowing measuring over length of 6.4 cm and normal size liver. There are several hypoechoic nodules within the liver. The largest and most concerning is in the inferior right lobe measuring 2.2 x 1.3 cm. There are a few additional scattered hypodensities within the remaining liver. CT PET scan done on 06/18/2019 showed hypermetabolic colonic mass in the descending colon at sigmoid with SUV of 18.7. And two hypermetabolic hepatic lesions also seen, one is in the lateral right lobe, segment 7 measuring 1.2 cm with SUV 5.3 and second one in the left lobe measuring 1.3 cm with SUV of 6.5 Next generation sequencing showed K-marti/N marti wild type,BRAF mutation not detected, MSI/MMR intact. recommended treatment with modified FOLFOX and vectibix. She began her first treatment on July 18, 2019 After 6 treatments, follow-up CT PET scan done on 10/14/2019 showed resolution of hepatic metastatic disease and significant improvement in the rectosigmoid mass now SUV 10.75 compared to 18.7 on 06/18/2019. Her last chemotherapy was on October 03, 2019 which completed 6 cycles of FOLFOX and vectibix. She states tentative surgery is planned for December 2019. This is planned to be done in [place] under the care of her son, Dr. Dakota Gomez.during 1 week follow-up as she was having hypokalemia and hypomagnesemia. Her last potassium infusion was 20 mEq here on October 17, 2019. She is taking 20 mEq daily at home. Subsequently started having nausea and off and on vomiting and abdominal cramping was treated with hydration and symptomatic as outpatient on 10/27/2019 patient went to [facility] with persistent but progressive abdominal pain nausea vomiting and underwent CT scan of abdomen pelvis which showed new 0.9 cm hypodense nodule in the anterior left liver lobe. The other low-density nodules previously identified in the liver are not visualized. Calcified sclerotic lesion in the proximal sigmoid colon with distended stool filled colon proximal to the lesion with the mild wall thickening. There is a diffuse dilatation of small bowel with fecalization , measuring up to 4.2 cm. No abdominal or pelvic lymphadenopathy seen. Patient came to office on 10/31/2019 with progressive constipation no abdominal pain, at that time clinical impression was colon obstruction versus ileus, case was discussed with her son Dr. Dakota Gomez in [facility], patient was sent to [facility] [place] via ambulance and underwent sigmoid colon resection on 11/03/2019 final pathology report showed residual tumor, 3.5 cm moderately differentiated, tumor invades through muscularis propria into pericolic colorectal tissue with clear surgical margin and, lymphovascular invasion present ypT3 , 4/ 16 lymph nodes showed metastatic disease ypN2a. Patient tolerated procedure well, Case was discussed with Dr. Gomez and his colleague Dr. Cat medical oncologist in [place] and and it was decided to start her on a Avastin/Xeloda and repeat CT PET scan after 3 or 4 cycles if it shows good response then tackle liver mets. Started on a Avastin/Xeloda on January 16, 2020 Came for follow-up, denies any specific complaints, no fever chills, no nausea or vomiting, no diarrhea constipation, no mouth sores, no jaundice, no abdominal pain. Tolerating a Avastin/Xeloda well. Medications: Furosemide 1 Tablet (of 40 mg) Oral daily, Glimepiride 1 Tablet (of 2 mg) Oral b.i.d., LORazepam 0.5 - 1 Tablet (of 1 mg) Oral t.i.d. PRN, Losartan Potassium 1 Tablet (of 100 mg) Oral daily, metFORMIN HCl 2 Tablet (of 500 mg) Oral b.i.d., Potassium Chloride ER 2 Tablet (of 10 meq) Tablet, controlled release Oral daily, Pravastatin Sodium 1 Tablet (of 40 mg) Oral daily, Prochlorperazine Maleate 1 Tablet (of 10 mg) Oral q 4 hours PRN Allergies: Penicillin Review of Systems: Constitutional - Appetite is poor and weight is stable. No fever, chills, hot flashes, or night sweats. Energy level is poor, ENMT - No sinus congestion/drainage. No mouth sores. No sore throat or difficulty swallowing, Hematologic/Lymphatic - No abnormal bruising or bleeding, Respiratory - No shortness of breath. No cough. No pleuritic pain or hemoptysis, Cardiovascular - No angina pain. No palpitations, Gastrointestinal - Positive for nausea and vomiting. No heartburn or acid reflux. No diarrhea. Positive for constipation. No blood in the stool or black stools, Genitourinary (F) - No dysuria or hematuria. No urinary frequency. No urgency or incontinence, Musculoskeletal - Positive for back pain, Neurologic - No headache or dizziness, Psychiatric - No anxiety or depression. No insomnia. Vital Signs: Performed on Feb 29, 2020 12:34 Height - 60.00 in Weight - 135.4 lbs (HIGH) BSA - 1.58 sq.m BMI - 26.44 Temperature - 98.2 F (LOW) Pulse - 60 /min Respiration - 18 /min BP - 144/91 mm(hg) (HIGH) O2 Sat - 99 % Pain - 0 Performance Status: 0 - Fully active, able to carry on all predisease activities without restrictions. (ECOG) Physical Examination: ENMT - No mouth sores, no thrush, no jaundice, Respiratory - Lungs are clear, Cardiovascular - Regular rate and rhythm of heart, Abdomen - Soft, bowel sounds present, nontender, Extremities - No visible edema or rash. Lab/Imaging: Test performed on February 07, 2020 11:00 Sodium 139 mmol/L Potassium 4.2 mmol/L Chloride 100 mmol/L CO2 27 mmol/L Anion Gap 16.2 BUN 23 mg/dL Creatinine 0.8 mg/dL Cr Clearance (Est) 52.8400 mL/min Glucose 119 mg/dL Calcium 10.6 mg/dL Protein, Total 7.3 g/dL Albumin 4.5 g/dL Globulin 2.8 g/dL Bilirubin, Total 0.3 mg/dL ALT (SGPT) 19 U/L AST (SGOT) 22 U/L Alkaline Phosphatase 115 IU/L WBC 4.8 10 3/uL RBC 4.68 10 6/uL HGB 13.2 g/dL HCT 42.3 % MCV 90.4 fL MCH 28.2 pg MCHC 31.2 g/dL RDW 15.3 % Platelet Count 217 10 3/cmm MPV 10.3 fL Neutrophils 2.9 10 3/uL Lymphocytes 1.2 10 3/uL Monocytes 0.4 10 3/uL Eosinophils 0.1 10 3/uL Basophils 0.1 10 3/uL Neutrophil % 60.6 % Lymphocyte % 25.8 % Monocyte % 9.2 % Eosinophil % 2.9 % Basophils % 1.3 % Test performed on Oct 31, 2019 08:19 Magnesium 1.8 mg/dL Test performed on Oct 03, 2019 09:07 CEA 5.9 ng/mL Test performed on Oct 03, 2019 08:53 Manual Lymphocytes 23.5 % Manual Monocytes 11 % Manual Eosinophils 2.7 % Manual Basophils 0.7 % NRBCs 0 /100 WBC Impression: Moderately differentiated infiltrating adenocarcinomaStatus post sigmoid colon resection done on 11/03/2019 final pathology report showed 3.5 cm moderately differentiated adenocarcinoma tumor invades through muscularis propria into pericolorectal fat ypT3 and 4 out of 16 lymph node examined showed metastatic disease ypN2a MMR D intact CT scan of abdomen done on 06/08/2019 showed short segment 80 of significant circumferential mucosal thickening extending over mental 6.4 cm involving descending colon and proximal sigmoid. Moderate narrowing of the lumen. There is adjacent pericolonic stranding with a wall thickening and soft tissue infiltration. There is a small adjacent lymph node measuring 5 mm. Normal size liver. There are several hypoechoic nodules within the liver. The largest and most concerning is the inferior right lobe measuring 2.2 x 1.3 cm there are a few additional scattered hypodensities within the remaining liver. CEA checked on 06/15/2019 was 6.3 Well compensated, Microcytic hypochromic anemia due to iron deficiency Most likely due to bleeding from colon cancer CBC done on 05/05/2019 showed white blood count 7.2 hemoglobin 6.7 hematocrit 23.2 MCV 65.5 platelets 367,000 and ferritin 6, iron saturation 4%, iron 17. Status post 2 units of packed RBC with that her repeat CBC done on 05/24/2019 showed white blood count 5.5 hemoglobin 9.1 g, hematocrit 29.4 MCV 70.9 platelets 320,000 with a normal differential. colonoscopy was done 5 years ago, some polyps were removed, as per patient, there were benign. Distant past history of peptic ulcer disease. discussed with Mrs Gomez regarding her CT PET scan which confirmed hepatic metastatic disease and next initially sequencing which showed MSI/MMR intact, K-marti/ Nras wild type, BRAF no mutation detected. dicussed the role of systemic chemotherapy in stage IV colon cancer was discussed with the patient and family and earlier with her son, Dakota gomez, who is a surgeon in [facility]. Based on next gene sequencing, , recommended that she proceed with panitumumab 6 mg/kg every 2 weeks along with FOLFOX. Considering her age and this stage IV disease, there was consideration for dose modification. She did obtain Port-A-Cath placement to facilitate chemotherapy. The plan was to give her 6 cycles of this regimen followed by CT PET scan to assess the response. Her last chemotherapy was on 10/03/2019 which completed 6 cycles of chemotherapy. Follow-up CT PET scan done after 6 cycles of hemotherapy with FOLFOX/panitumumab showed excellent response with resolution of hepatic metastatic disease and significant improvement in the primary in the rectosigmoid colon: SUV 10.75 compared to 18.7 at the time of diagnosis.In October 2019 patient developed symptoms consistent with intestinal obstruction, patient was transferred to [place] to her son Dr. Gomez, and there she underwent sigmoid colon resection on November 03, 2019 and the final pathology report came back yT3, N2a and at that time her case was discussed with Dr. Gomez and his colleague Dr. Cat, medical oncologist and decided to proceed with a Avastin/Xeloda and repeat CT PET scan after 3-4 doses then evaluate liver mets. Plan: Discussed with patient regarding her labs white blood count 5.8 hemoglobin 13.5 crit 43.2 platelets 200,000 CMP within normal limits CEA 8 Clinically, patient is doing well with no signs symptom suggestive of disease progression, tolerating systemic therapy with oral Xeloda/Avastin well but with expected side effects. We will proceed with the next 3 weekly dose of a Avastin today and she will be starting her Xeloda for 2 weeks, today too. And , In the meantime we will consider follow-up CT PET scan to assess disease response and status so she will return to clinic in 3 weeks with CBC CMP and follow-up CT PET scan Signed By: Abdullahi Cat M.D. <<Signature on File>>
[2020-02-29] MEDS: sodium chloride 0.9% 250 ML 75 ML IV (13:40)
[2020-02-29 14:50] LABS: Urine Appearance Clear (CLEAR); Urine Color Yellow (Yellow)
[2020-02-29 14:51] LABS: Add Urine Microscopic? YES; Bilirubin Urine Neg (NEGATIVE); Blood Urine Neg (Negative); Glucose Urine UA Norm (Normal); Ketones Urine Negative (Negative); Leukocyte Esterase Urine Trace (Negative); Nitrate Urine Positive (Negative); Protein Urine Neg (Negative); Urobilinogen Urine Norm (Negative); pH Urine 6.5 (5-7)
[2020-02-29 14:53] LABS: RBC Urine 0-4 /hpf (0-2)
[2020-02-29 14:54] LABS: Add Urine Culture? Yes; Bacteria Urine 2+
== END 2020-03-13 23:59 | disposition home or self-care (01) ==
LOC: ONCMED 07:20
PROVIDERS: PCP Nurse Practitioner Family; Visit Provider Internal Medicine Hematology & Oncology
DX: Z51.11 Encounter for antineoplastic chemotherapy (principal); C18.8 Malignant neoplasm of overlapping sites of colon; C78.7 Secondary malignant neoplasm of liver and intrahepatic bile duct; I10 Essential (primary) hypertension; E11.9 Type 2 diabetes mellitus without complications; Z79.899 Other long term (current) drug therapy
CPT/HCPCS: 36593; 80053; 81001; 82378; 85025; 87077; 87086; 87186; 96375; 96413; 99214; J2997; J7050; J9035

== ENCOUNTER → 2020-03-12 11:16 | Outpatient (BNVA) | payer MEDICARE, SELFPAY | PROVIDERS: PCP Nurse Practitioner Family; Visit Provider Nurse Practitioner Family | DX: E11.9 Type 2 diabetes mellitus without complications (principal); I10 Essential (primary) hypertension; H61.21 Impacted cerumen, right ear; C18.9 Malignant neoplasm of colon, unspecified | CPT/HCPCS: 80061; 82044; 83036 ==

== ENCOUNTER 2020-04-13 08:00 | Outpatient (RCR) | payer MEDICARE, SELFPAY ==
[2020-03-21 12:13] LABS: Basophils # 0.1 10^3/uL (0.0-0.1); Basophils % 1.1 %; Eosinophils # 0.2 10^3/uL (0.0-0.8); Eosinophils % 3.3 %; Hematocrit 42.3 % (37.0-47.0); Hemoglobin 13.5 g/dL (11.5-15.3); Lymphocytes # 1.4 10^3/uL (0.8-4.8); Lymphocytes % 24.8 %; Mean Corpuscular HGB Conc 31.9 g/dL (30.0-36.0); Mean Corpuscular Hemoglobin 29.2 pg (28.0-34.0); Mean Corpuscular Volume 91.6 fL (81-99); Mean Platelet Volume 10.2 fL (7.4-10.4); Monocytes # 0.5 10^3/uL (0.2-0.9); Monocytes % 8.4 %; Neutrophils # 3.4 10^3/uL (1.8-7.7); Nucleated Red Blood Cells % 0 %; Platelet Count 194 10^3/cmm (130-400); Red Blood Count 4.62 10^6/uL (4.1-5.3); Red Cell Distribution Width 18.1 % (12.1-15.1); White Blood Count 5.5 10^3/uL (4.0-10.0)
[2020-03-21] MEDS: alteplase 1 mg/mL SDV 2 mL 2 MG IV (12:15)
[2020-03-21 12:32] LABS: Alanine Aminotransferase 18 U/L (0-33); Albumin Level 4.4 g/dL (3.5-5.2); Alkaline Phosphatase 92 IU/L (35-105); Anion Gap 15.1 (5-19); Aspartate Amino Transferase 27 U/L (0-32); Blood Urea Nitrogen 21 mg/dL (8-23); Carbon Dioxide 25 mmol/L (22-29); Chloride 100 mmol/L (98-107); Globulin 2.6 g/dL (1.3-4.6); Glucose 95 mg/dL (65-115); Osmolality Calculated 278 mOsm/kg (285-295); Potassium 4.1 mmol/L (3.5-5.1); Sodium 136 mmol/L (136-145); Total Bilirubin 0.4 mg/dL (0.15-1.2)
[2020-03-21] MEDS: sodium chloride 0.9% 250 ML 75 ML IV (13:45)
--- NOTE | 2020-03-21 14:14 | ONC FU_ITS ---
[facility] Patient Note Patient: Elaine Garcia Unit #: [id number]: 1940 Dictated By: Agnes WestfallDate of Visit: Mar 21, 2020 Onc MED Follow-Up/Prog Note Chief Complaint: Iron deficiency anemia Adenocarcinoma distal/sigmoid colon with liver involvement History of Present Illness: Mrs. Byrne is a 79-year-old female with history of chronic back pain for which she was taking ibuprofen for the last 4 months. She went to see her primary care physician for routine lab workup and follow-up and found to have severe anemia. Her CBC checked on 05/05/2019 shows white blood count 7.2 hemoglobin 6.7 crit 23.2 platelets 367,000 MCV 65.5 iron studies showed ferritin 6 iron 17 saturation for TIBC 425 and CMP was within normal range. Patient was given 2 units of packed RBCs. Patient said she was feeling weak and tired but thought it was due to old age . She had had no palpitations, no shortness of breath, no history of melena or hematochezia, no history of jaundice, no history of weight loss, no history of hemoptysis or hematemesis, no history of hematuria. No history of weight loss. No history of abdominal pain. Patient has history of peptic ulcer in the past. Last colonoscopy was done 5 years ago and at that time she was found to have some polyps, there were removed as per patient it was negative for any malignancy. Mrs Garcia underwent EGD and colonoscopy by Dr. Haas on 06/07/2019 Showed distal colon/sigmoid mass and biopsy was obtained which shows infiltrating adenocarcinoma CT scan of abdomen pelvis done on 06/08/2019 showed colonic mass involving descending and sigmoid colon with luminal narrowing measuring over length of 6.4 cm and normal size liver. There are several hypoechoic nodules within the liver. The largest and most concerning is in the inferior right lobe measuring 2.2 x 1.3 cm. There are a few additional scattered hypodensities within the remaining liver. CT PET scan done on 06/18/2019 showed hypermetabolic colonic mass in the descending colon at sigmoid with SUV of 18.7. And two hypermetabolic hepatic lesions also seen, one is in the lateral right lobe, segment 7 measuring 1.2 cm with SUV 5.3 and second one in the left lobe measuring 1.3 cm with SUV of 6.5 Next generation sequencing showed K-marti/N marti wild type,BRAF mutation not detected, MSI/MMR intact. Dr Cat recommended treatment with modified FOLFOX and vectibix. She began her first treatment on July 18, 2019 After 6 treatments, follow-up CT PET scan done on 10/14/2019 showed resolution of hepatic metastatic disease and significant improvement in the rectosigmoid mass now SUV 10.75 compared to 18.7 on 06/18/2019. Her last chemotherapy was on October 03, 2019 which completed 6 cycles of FOLFOX and vectibix. She presented the following week for a follow-up as she was having hypokalemia and hypomagnesemia. Her last potassium infusion was 20 mEq here on October 17, 2019. She was taking 20 mEq daily at home. Subsequently started having nausea and off and on vomiting and abdominal cramping was treated with hydration and symptomatic as outpatient on 10/27/2019 patient went to [facility] with persistent but progressive abdominal pain nausea vomiting and underwent CT scan of abdomen pelvis which showed new 0.9 cm hypodense nodule in the anterior left liver lobe. The other low-density nodules previously identified in the liver are not visualized. Calcified sclerotic lesion in the proximal sigmoid colon with distended stool filled colon proximal to the lesion with the mild wall thickening. There is a diffuse dilatation of small bowel with fecalization , measuring up to 4.2 cm. No abdominal or pelvic lymphadenopathy seen. Mrs Garcia came to office on 10/31/2019 with progressive constipation but no abdominal pain, at that time clinical impression was colon obstruction versus ileus. Her case was discussed with her son Dakota Sandovalramses in [facility] [place]. Mrs Garcia was sent to [facility] [place] via ambulance and underwent sigmoid colon resection on 11/03/2019. The final pathology report showed residual tumor, 3.5 cm moderately differentiated, tumor invades through muscularis propria into pericolic colorectal tissue with clear surgical margin and, lymphovascular invasion present ypT3 , / 16 lymph nodes showed metastatic disease ypN2a. Patient tolerated procedure well, Case was discussed with Dr. Garcia and his colleague Dr. Cat-medical oncologist in [place] and and it was decided to start her on a Avastin/Xeloda and repeat CT PET scan after 3 or 4 cycles if it shows good response then tackle liver mets. She started on a Avastin/Xeloda on January 16, 2020. She has tolerated it well. Ms. Garcia is here today for follow-up. She states she feels really good. She is active around the house. She denies any new pain. She is eating good. She denies mouth sores, sore throat or difficulty swallowing. She is had no skin changes. She denies any diarrhea or constipation. She is had no changes in urinary pattern. She is now walking without any assistance. She overall performance status seems to have improved since I saw her last. She states she feels good. She states she is scheduled for a PET CT on March 30, 2020. Her ECOG is 1. Came for follow-up, denies any specific complaints, no fever chills, no nausea or vomiting, no diarrhea constipation, no mouth sores, no jaundice, no abdominal pain. Tolerating a Avastin/Xeloda well. Past Medical History: Hypertension Type II diabetes Past Surgical History: Breast biopsy Hysterectomy Allergies: Penicillin Medications: Furosemide 1 Tablet (of 40 mg) Oral daily Glimepiride 1 Tablet (of 2 mg) Oral b.i.d. LORazepam 0.5 - 1 Tablet (of 1 mg) Oral t.i.d. PRN Losartan Potassium 1 Tablet (of 100 mg) Oral daily metFORMIN HCl 2 Tablet (of 500 mg) Oral b.i.d. Potassium Chloride ER 2 Tablet (of 10 meq) Tablet, controlled release Oral daily Pravastatin Sodium 1 Tablet (of 40 mg) Oral daily Prochlorperazine Maleate 1 Tablet (of 10 mg) Oral q 4 hours PRN Family History: Ms. Garcia's mother at age 85: old age. Ms. Garcia's father at age 70: myocardial infaraction. Social History: Ms. Garcia is and she is retired. Ms. Garcia has never smoked. She has no history of drinking. Review Of Symptoms: Constitutional Denies fevers, chills, night sweats, excessive fatigue or weight loss. Allergic/Immunologic No reactions. Eyes Denies significant visual changes. No diplopia. No amaurosis. ENMT Denies changes in hearing, sore throat, mouth sores, difficulty or changes in swallowing ability, and/or sinus drainage. Hematologic/Lymphatic Denies easy bruising or bleeding. The patient denies any tender or palpable lymph nodes. Respiratory Denies dyspnea on exertion, chest pain, cough or hemoptysis. Denies orthopnea. Cardiovascular Denies anginal chest pain, palpitations or orthopnea. Gastrointestinal Denies nausea, vomiting, diarrhea, GI bleeding, or constipation. Denies change in bowel habits and/or stool color, no heartburn or early satiety. No diarrhea or nausea/vomiting. Genitourinary (F) No hematuria, hesitancy, incontinence, vaginal bleeding, discharge or other problems with urination. Musculoskeletal Denies joint pain, swelling or redness. No decreased range of motion. Integumentary Denies chronic rashes, inflammation, ulcerations or skin changes. Neurologic Denies headache, blurred vision, and no areas of focal weakness or numbness. Normal gait-no longer using walker or cane. No sensory problems today. Psychiatric Denies insomnia, depression, heather or mood swings. Vital Signs: Performed on Mar 21, 2020 12:57 Height - 60.00 in Weight - 135.2 lbs (LOW) BSA - 1.58 sq.m BMI - 26.40 Temperature - 97.2 F (LOW) Pulse - 63 /min Respiration - 17 /min BP - 154/79 mm(hg) (HIGH) O2 Sat - 97 % Pain - 0,1 - No physically strenuous activity, but ambulatory and able to carry out light or sedentary work (e.g. office work, light house work). (ECOG) Physical Examination: Constitutional Alert, oriented, no acute distress. Skin pink, warm and dry. Head Normocephalic; atraumatic. Eyes Conjunctivae and sclerae are clear and without icterus. Pupils are reactive and equal. Neck Supple without masses or thyromegaly. No jugular venous distension. Hematologic/Lymphatic No petechiae or purpura. Respiratory Lungs are clear to auscultation without rhonchi or wheezing. Cardiovascular Regular rate and rhythm of heart without murmurs,clicks, gallops or rubs. Chest Left venous access device insertion unremarkable. Abdomen Non-tender, non-distended, no masses, ascites. Back/Spine Non-tender to palpation. Extremities No visible deformities, no cyanosis, clubbing or edema. Musculoskeletal No tenderness or swelling, normal range of motion without obvious weakness. Integumentary No rashes or lesions. Neurologic No sensory or motor deficits, normal cerebellar function, normal for her/assisted gait. Psychiatric Alert and oriented times three. Coherent speech. Verbalizes understanding of our discussions today. Laboratory:Test performed on Mar 21, 2020 11:46 Sodium 136 mmol/L Potassium 4.1 mmol/L Chloride 100 mmol/L CO2 25 mmol/L Anion Gap 15.1 BUN 21 mg/dL Creatinine 0.8 mg/dL Cr Clearance (Est) 52.8400 mL/min Glucose 95 mg/dL Calcium 10.0 mg/dL Protein, Total 7.0 g/dL Albumin 4.4 g/dL Globulin 2.6 g/dL Bilirubin, Total 0.4 mg/dL ALT (SGPT) 18 U/L AST (SGOT) 27 U/L Alkaline Phosphatase 92 IU/L WBC 5.5 10 3/uL RBC 4.62 10 6/uL HGB 13.5 g/dL HCT 42.3 % MCV 91.6 fL MCH 29.2 pg MCHC 31.9 g/dL RDW 18.1 % Platelet Count 194 10 3/cmm MPV 10.2 fL Neutrophils 3.4 10 3/uL Lymphocytes 1.4 10 3/uL Monocytes 0.5 10 3/uL Eosinophils 0.2 10 3/uL Basophils 0.1 10 3/uL Neutrophil % 62.0 % Lymphocyte % 24.8 % Monocyte % 8.4 % Eosinophil % 3.3 % Basophils % 1.1 % NRBC % 0 % Test performed on Feb 29, 2020 14:21 Ua Micro: WBC 10-15 /hpf Ua Micro: RBC 0-4 /hpf Ua Micro: Squam Epith Cells 5-10 Ua Micro: Bacteria 2+ Test performed on Feb 29, 2020 11:18 CEA 8.0 ng/mL Test performed on Oct 31, 2019 08:19 Magnesium 1.8 mg/dL Test performed on Oct 03, 2019 08:53 Manual Lymphocytes 23.5 % Manual Monocytes 11 % Manual Eosinophils 2.7 % Manual Basophils 0.7 % NRBCs 0 /100 WBC Impression: Moderately differentiated infiltrating adenocarcinoma. Status post sigmoid colon resection done on 11/03/2019 final pathology report showed 3.5 cm moderately differentiated adenocarcinoma tumor invades through muscularis propria into pericolorectal fat ypT3 and 4 out of 16 lymph node examined showed metastatic disease ypN2a MMR D intact CT scan of abdomen done on 06/08/2019 showed short segment 80 of significant circumferential mucosal thickening extending over mental 6.4 cm involving descending colon and proximal sigmoid. Moderate narrowing of the lumen. There is adjacent pericolonic stranding with a wall thickening and soft tissue infiltration. There is a small adjacent lymph node measuring 5 mm. Normal size liver. There are several hypoechoic nodules within the liver. The largest and most concerning is the inferior right lobe measuring 2.2 x 1.3 cm there are a few additional scattered hypodensities within the remaining liver. CEA checked on 06/15/2019 was 6.3 Well compensated, Microcytic hypochromic anemia due to iron deficiency Most likely due to bleeding from colon cancer CBC done on 05/05/2019 showed white blood count 7.2 hemoglobin 6.7 hematocrit 23.2 MCV 65.5 platelets 367,000 and ferritin 6, iron saturation 4%, iron 17. Status post 2 units of packed RBC with that her repeat CBC done on 05/24/2019 showed white blood count 5.5 hemoglobin 9.1 g, hematocrit 29.4 MCV 70.9 platelets 320,000 with a normal differential. colonoscopy was done 5 years ago, some polyps were removed, as per patient, there were benign. Distant past history of peptic ulcer disease. discussed with Mrs Garcia regarding her CT PET scan which confirmed hepatic metastatic disease and next initially sequencing which showed MSI/MMR intact, K-marti/ Nras wild type, BRAF no mutation detected. Dr Abdullahi Cat dicussed the role of systemic chemotherapy in stage IV colon cancer with the patient and family and earlier with her son, Dakota GarciaMD who is a surgeon in [facility] [place]. Based on next gene sequencing, it was recommended that she proceed with panitumumab 6 mg/kg every 2 weeks along with FOLFOX. Considering her age and this stage IV disease, there was consideration for dose modification. She did obtain Port-A-Cath placement to facilitate chemotherapy. The plan was to give her 6 cycles of this regimen followed by CT PET scan to assess the response. Her last chemotherapy was on 10/03/2019 which completed 6 cycles of chemotherapy. Follow-up CT PET scan done after 6 cycles of hemotherapy with FOLFOX/panitumumab showed excellent response with resolution of hepatic metastatic disease and significant improvement in the primary in the rectosigmoid colon: SUV 10.75 compared to 18.7 at the time of diagnosis.In October 2019 patient developed symptoms consistent with intestinal obstruction, patient was transferred to [place] to her son Dr. Garcia, and there she underwent sigmoid colon resection on November 03, 2019 and the final pathology report came back yT3, N2a and at that time her case was discussed with Dr. Garcia and his colleague Dr. Cat, medical oncologist and decided to proceed with a Avastin/Xeloda and repeat CT PET scan after 3-4 doses then evaluate liver mets. Plan: 1. Proceed with cycle 4 Avastin and Xeloda. She starts Xeloda 1300 mg twice daily days 1 through 14 back today. This was called to [facility] for her to sisal picker on her way home. 2. Continue current antiemetics as needed. Thus far she is doing well without them and has not required any nausea meds. 3. Today's labs were reviewed in detail and discussed with Mrs. Garcia and a copy was given to her. WBC 5.5, hemoglobin 13.5, platelets are 94,000 ANC is 3400. Creatinine 0.8. Random glucose 95, potassium 4.1 and calcium is 10.0. Her last CEA on February 29, 2020 was 8.0. Her last urine showed no protein and was obtained on 02/29/2020. 4. We will plan to see her back in 3 weeks with CBC CMP CEA and repeat urine for Avastin monitoring. We will have the results of her PET/CT by then.. 5. Mrs. Garcia was encouraged to contact us in the interim should questions or problems arise. Signed By: Agnes Westfall-, [facility]ORE[facility] BIG RAPIDS HOSPITALEdgardo Cat MD <<Signature on File>>
[2020-04-11 09:04] LABS: Basophils # 0.1 10^3/uL (0.0-0.1); Basophils % 0.9 %; Eosinophils # 0.2 10^3/uL (0.0-0.8); Eosinophils % 2.9 %; Hematocrit 40.3 % (37.0-47.0); Hemoglobin 12.7 g/dL (11.5-15.3); Lymphocytes # 1.4 10^3/uL (0.8-4.8); Lymphocytes % 23.8 %; Mean Corpuscular HGB Conc 31.5 g/dL (30.0-36.0); Mean Corpuscular Hemoglobin 28.9 pg (28.0-34.0); Mean Corpuscular Volume 91.6 fL (81-99); Mean Platelet Volume 10.2 fL (7.4-10.4); Monocytes # 0.6 10^3/uL (0.2-0.9); Monocytes % 10.4 %; Neutrophils # 3.57 10^3/uL (1.8-7.7); Neutrophils % 61.7 %; Nucleated Red Blood Cells % 0 %; Platelet Count 187 10^3/cmm (130-400); Red Cell Distribution Width 20.1 % (12.1-15.1); White Blood Count 5.8 10^3/uL (4.0-10.0)
[2020-04-11 09:20] LABS: Alanine Aminotransferase 16 U/L (0-33); Albumin Level 4.5 g/dL (3.5-5.2); Alkaline Phosphatase 85 IU/L (35-105); Aspartate Amino Transferase 23 U/L (0-32); Blood Urea Nitrogen 18 mg/dL (8-23); Calcium 10.3 mg/dL (8.5-10.5); Carbon Dioxide 27 mmol/L (22-29); Chloride 101 mmol/L (98-107); Globulin 2.5 g/dL (1.3-4.6); Glucose 111 mg/dL (65-115); Osmolality Calculated 287 mOsm/kg (285-295); Sodium 140 mmol/L (136-145); Total Bilirubin 0.8 mg/dL (0.15-1.2)
[2020-04-11 10:04] LABS: Urine Appearance SL Hazy (CLEAR); Urine Color Yellow (Yellow)
[2020-04-11 10:05] LABS: Add Urine Culture? No; Add Urine Microscopic? YES; Bacteria Urine 2+; Bilirubin Urine Neg (NEGATIVE); Blood Urine Neg (Negative); Glucose Urine UA 1+ (Normal); Ketones Urine Negative (Negative); Leukocyte Esterase Urine 1+ (Negative); Mucus Urine TRACE; Nitrate Urine Positive (Negative); Protein Urine Neg (Negative); Urobilinogen Urine Norm (Negative); WBC Urine 25-40 /hpf (0-5)
--- NOTE | 2020-04-11 17:18 | ONC FU_ITS ---
Dr. Cat follow up note Patient: Elaine Garcia Unit #: [id number]: [id number] Dicatated By: Abdullahi Cat M.D.Date of Visit:Apr 11, 2020 Onc Med Follow-up/Prog Note History of Present Illness: Mrs. Byrne is a 79-year-old female with history of chronic back pain for which she was taking ibuprofen for the last 4 months. She went to see her primary care physician for routine lab workup and follow-up and found to have severe anemia. Her CBC checked on 05/05/2019 shows white blood count 7.2 hemoglobin 6.7 crit 23.2 platelets 367,000 MCV 65.5 iron studies showed ferritin 6 iron 17 saturation for TIBC 425 and CMP was within normal range. Patient was given 2 units of packed RBCs. Patient said she was feeling weak and tired but thought it was due to old age . She had had no palpitations, no shortness of breath, no history of melena or hematochezia, no history of jaundice, no history of weight loss, no history of hemoptysis or hematemesis, no history of hematuria. No history of weight loss. No history of abdominal pain. Patient has history of peptic ulcer in the past. Last colonoscopy was done 5 years ago and at that time she was found to have some polyps, there were removed as per patient it was negative for any malignancy. Mrs Garcia underwent EGD and colonoscopy by Dr. Haas on 06/07/2019 Showed distal colon/sigmoid mass and biopsy was obtained which shows infiltrating adenocarcinoma CT scan of abdomen pelvis done on 06/08/2019 showed colonic mass involving descending and sigmoid colon with luminal narrowing measuring over length of 6.4 cm and normal size liver. There are several hypoechoic nodules within the liver. The largest and most concerning is in the inferior right lobe measuring 2.2 x 1.3 cm. There are a few additional scattered hypodensities within the remaining liver. CT PET scan done on 06/18/2019 showed hypermetabolic colonic mass in the descending colon at sigmoid with SUV of 18.7. And two hypermetabolic hepatic lesions also seen, one is in the lateral right lobe, segment 7 measuring 1.2 cm with SUV 5.3 and second one in the left lobe measuring 1.3 cm with SUV of 6.5 Next generation sequencing showed K-marti/N marti wild type,BRAF mutation not detected, MSI/MMR intact. recommended treatment with modified FOLFOX and vectibix. She began her first treatment on July 18, 2019 After 6 treatments, follow-up CT PET scan done on 10/14/2019 showed resolution of hepatic metastatic disease and significant improvement in the rectosigmoid mass now SUV 10.75 compared to 18.7 on 06/18/2019. Her last chemotherapy was on October 03, 2019 which completed 6 cycles of FOLFOX and vectibix. She presented the following week for a follow-up as she was having hypokalemia and hypomagnesemia. Her last potassium infusion was 20 mEq here on October 17, 2019. She was taking 20 mEq daily at home. Subsequently started having nausea and off and on vomiting and abdominal cramping was treated with hydration and symptomatic as outpatient on 10/27/2019 patient went to [facility] with persistent but progressive abdominal pain nausea vomiting and underwent CT scan of abdomen pelvis which showed new 0.9 cm hypodense nodule in the anterior left liver lobe. The other low-density nodules previously identified in the liver are not visualized. Calcified sclerotic lesion in the proximal sigmoid colon with distended stool filled colon proximal to the lesion with the mild wall thickening. There is a diffuse dilatation of small bowel with fecalization , measuring up to 4.2 cm. No abdominal or pelvic lymphadenopathy seen. Mrs Garcia came to office on 10/31/2019 with progressive constipation but no abdominal pain, at that time clinical impression was colon obstruction versus ileus. Her case was discussed with her son Dakota Garcia in [facility]. Mrs Garcia was sent to [facility] [place] via ambulance and underwent sigmoid colon resection on 11/03/2019. The final pathology report showed residual tumor, 3.5 cm moderately differentiated, tumor invades through muscularis propria into pericolic colorectal tissue with clear surgical margin and, lymphovascular invasion present ypT3 , 4/ 16 lymph nodes showed metastatic disease ypN2a. Patient tolerated procedure well, Case was discussed with Dr. Garcia and his colleague Dr. Cat-medical oncologist in [place] and and it was decided to start her on a Avastin/Xeloda and repeat CT PET scan after 3 or 4 cycles if it shows good response then tackle liver mets. She started on a Avastin/Xeloda on January 16, 2020. She has tolerated it well. Ms. Garcia is here today for follow-up. She states she feels really good. She is active around the house. She denies any new pain. She is eating good. She denies mouth sores, sore throat or difficulty swallowing. She is had no skin changes. She denies any diarrhea or constipation. She is had no changes in urinary pattern. She is now walking without any assistance. She overall performance status seems to have improved since I saw her last. Underwent follow-up CT PET scan on March 30, 2020 and the impression was new lesions of both lobes and the liver consistent with metastatic involvement in addition to 2 prominent lesions small foci are present which may be further evaluated with MRI scan of the liver. No other findings suggestive of tumor recurrence or progression. Case was discussed with Dr. Garcia, surgeon and patient's son in [place], who has evaluated and compared latest CT PET scan with the previous one and his impression was no significant change from previous scan e.g. doubtful new lesions. Herpetic mets resection is under consideration, probably in the third week of April 2020, as per discussion with Dr. Garcia Last dose of a Avastin was given on March 21, 2020 and last dose of Xeloda was taken on April 04, 2020. Came for follow-up, denies any specific complaints, no fever chills, no nausea or vomiting, no diarrhea or constipation, no mouth sores, no skin rash except mild pigmentation involving bilateral palms. Came for follow-up, denies any specific complaints, no fever chills, no nausea or vomiting, no diarrhea constipation, no mouth sores, no jaundice, no abdominal pain. Tolerating a Avastin/Xeloda well. Medications: Furosemide 1 Tablet (of 40 mg) Oral daily, Glimepiride 1 Tablet (of 2 mg) Oral b.i.d., LORazepam 0.5 - 1 Tablet (of 1 mg) Oral t.i.d. PRN, Losartan Potassium 1 Tablet (of 100 mg) Oral daily, metFORMIN HCl 2 Tablet (of 500 mg) Oral b.i.d., Potassium Chloride ER 2 Tablet (of 10 meq) Tablet, controlled release Oral daily, Pravastatin Sodium 1 Tablet (of 40 mg) Oral daily, Prochlorperazine Maleate 1 Tablet (of 10 mg) Oral q 4 hours PRN Allergies: Penicillin Review of Systems: Review of Systems is not available for this patient. Vital Signs: Performed on Apr 11, 2020 09:26 Height - 60.00 in Weight - 139.2 lbs (HIGH) BSA - 1.60 sq.m BMI - 27.19 Temperature - 99.0 F (HIGH) Pulse - 79 /min Respiration - 20 /min BP - 128/79 mm(hg) O2 Sat - 97 % Pain - 0 Performance Status: 0 - Fully active, able to carry on all predisease activities without restrictions. (ECOG) Physical Examination: ENMT - No mouth sores, no thrush, no jaundice, Respiratory - Lungs are clear, Cardiovascular - Regular rate and rhythm of heart, Abdomen - Soft, bowel sounds present, nontender, Extremities - No visible edema but mild pigmentation involving bilateral palms. Lab/Imaging: Test performed on Mar 21, 2020 11:46 Sodium 136 mmol/L Potassium 4.1 mmol/L Chloride 100 mmol/L CO2 25 mmol/L Anion Gap 15.1 BUN 21 mg/dL Creatinine 0.8 mg/dL Cr Clearance (Est) 52.8400 mL/min Glucose 95 mg/dL Calcium 10.0 mg/dL Protein, Total 7.0 g/dL Albumin 4.4 g/dL Globulin 2.6 g/dL Bilirubin, Total 0.4 mg/dL ALT (SGPT) 18 U/L AST (SGOT) 27 U/L Alkaline Phosphatase 92 IU/L WBC 5.5 10 3/uL RBC 4.62 10 6/uL HGB 13.5 g/dL HCT 42.3 % MCV 91.6 fL MCH 29.2 pg MCHC 31.9 g/dL RDW 18.1 % Platelet Count 194 10 3/cmm MPV 10.2 fL Neutrophils 3.4 10 3/uL Lymphocytes 1.4 10 3/uL Monocytes 0.5 10 3/uL Eosinophils 0.2 10 3/uL Basophils 0.1 10 3/uL Neutrophil % 62.0 % Lymphocyte % 24.8 % Monocyte % 8.4 % Eosinophil % 3.3 % Basophils % 1.1 % NRBC % 0 % Test performed on Feb 29, 2020 14:21 Ua Micro: WBC 10-15 /hpf Ua Micro: RBC 0-4 /hpf Ua Micro: Squam Epith Cells 5-10 Ua Micro: Bacteria 2+ Test performed on Feb 29, 2020 11:18 CEA 8.0 ng/mL Test performed on Oct 31, 2019 08:19 Magnesium 1.8 mg/dL Impression: Moderately differentiated infiltrating adenocarcinoma. Status post sigmoid colon resection done on 11/03/2019 final pathology report showed 3.5 cm moderately differentiated adenocarcinoma tumor invades through muscularis propria into pericolorectal fat ypT3 and 4 out of 16 lymph node examined showed metastatic disease ypN2a MMR D intact CT scan of abdomen done on 06/08/2019 showed short segment 80 of significant circumferential mucosal thickening extending over mental 6.4 cm involving descending colon and proximal sigmoid. Moderate narrowing of the lumen. There is adjacent pericolonic stranding with a wall thickening and soft tissue infiltration. There is a small adjacent lymph node measuring 5 mm. Normal size liver. There are several hypoechoic nodules within the liver. The largest and most concerning is the inferior right lobe measuring 2.2 x 1.3 cm there are a few additional scattered hypodensities within the remaining liver. CEA checked on 06/15/2019 was 6.3 Well compensated, Microcytic hypochromic anemia due to iron deficiency Most likely due to bleeding from colon cancer CBC done on 05/05/2019 showed white blood count 7.2 hemoglobin 6.7 hematocrit 23.2 MCV 65.5 platelets 367,000 and ferritin 6, iron saturation 4%, iron 17. Status post 2 units of packed RBC with that her repeat CBC done on 05/24/2019 showed white blood count 5.5 hemoglobin 9.1 g, hematocrit 29.4 MCV 70.9 platelets 320,000 with a normal differential. colonoscopy was done 5 years ago, some polyps were removed, as per patient, there were benign. Distant past history of peptic ulcer disease. discussed with Mrs Garcia regarding her CT PET scan which confirmed hepatic metastatic disease and next initially sequencing which showed MSI/MMR intact, K-marti/ Nras wild type, BRAF no mutation detected. dicussed the role of systemic chemotherapy in stage IV colon cancer with the patient and family and earlier with her son, Dakota Garcia MD who is a surgeon in [facility]. Based on next gene sequencing, it was recommended that she proceed with panitumumab 6 mg/kg every 2 weeks along with FOLFOX. Considering her age and this stage IV disease, there was consideration for dose modification. She did obtain Port-A-Cath placement to facilitate chemotherapy. The plan was to give her 6 cycles of this regimen followed by CT PET scan to assess the response. Her last chemotherapy was on 10/03/2019 which completed 6 cycles of chemotherapy. Follow-up CT PET scan done after 6 cycles of hemotherapy with FOLFOX/panitumumab showed excellent response with resolution of hepatic metastatic disease and significant improvement in the primary in the rectosigmoid colon: SUV 10.75 compared to 18.7 at the time of diagnosis.In October 2019 patient developed symptoms consistent with intestinal obstruction, patient was transferred to [place] to her son Dr. Garcia, and there she underwent sigmoid colon resection on November 03, 2019 and the final pathology report came back yT3, N2a and at that time her case was discussed with Dr. Garcia and his colleague Dr. Cat, medical oncologist and decided to proceed with a Avastin/Xeloda and repeat CT PET scan Was done on March 30, 2020 which showed persistent hepatic disease with possible new lesions, MRI liver was suggested and no other distant mets seen. Plan: Discussed with patient regarding her labs white blood count 5.8 hemoglobin 12.7 hematocrit 40.3 platelets 187,000 CMP within normal limits and a CT PET scan which was done on March 30, 2020 findings which shows no evidence of distant mets except persistent metastatic disease in the liver could be new lesions so MRI scan of the liver was recommended to confirm. Clinically, patient doing well with no new signs symptom, tolerating a Avastin/Xeloda well, last dose of Avastin was given on March 21, 2020 and last dose of Xeloda was given on April 04, 2020, now liver mets resection is under consideration in [facility] under her son's supervision. In the meantime we will schedule her for MRI scan of the liver to confirm new hepatic lesions as mentioned on CT PET scan. Patient has follow-up appointment with GI oncology surgeon in [place] in second week of April 2020 for possible surgery in the third week of April 2020 and will see her back 2-3 weeks after the surgery with pathology report for further discussion and planning. Case was discussed with Dr. Garcia today and he and patient agreed with the plan. Signed By: Abdullahi Cat M.D. <<Signature on File>>
== END 2020-04-13 23:59 | disposition home or self-care (01) ==
LOC: RADWPI 08:00
PROVIDERS: Nurse Practitioner; PCP Nurse Practitioner Family; Visit Provider Internal Medicine Hematology & Oncology
DX: Z51.12 Encounter for antineoplastic immunotherapy (principal); C18.8 Malignant neoplasm of overlapping sites of colon; C78.7 Secondary malignant neoplasm of liver and intrahepatic bile duct; C77.2 Secondary and unspecified malignant neoplasm of intra-abdominal lymph nodes; D50.9 Iron deficiency anemia, unspecified; Z51.81 Encounter for therapeutic drug level monitoring; Z79.899 Other long term (current) drug therapy; Z90.49 Acquired absence of other specified parts of digestive tract; Z86.010 Personal history of colon polyps; Z87.11 Personal history of peptic ulcer disease
CPT/HCPCS: 36415; 36591; 36593; 80053; 81001; 81003; 82378; 85025; 96375; 96413; 99214; J2997; J7050; J9035

== ENCOUNTER 2020-04-13 08:16 | Outpatient (CLI) | payer MEDICARE, SELFPAY ==
--- NOTE | 2020-04-13 08:21 | MR_ITS ---
WS: [id number] MRI abdomen with and without contrast. COMPARISON: CT 10/27/[address] 06/18/2019. HISTORY: Adenocarcinoma with liver involvement. Preop. History of colon and liver cancer. Multiplanar, multisequence imaging is performed of the abdomen with and without contrast. Liver: Normal size liver with no bile duct dilatation. Enhancing masses in the LEFT lobe of the liver . Peripherally enhancing masses with decreased signal intensity centrally. The largest mass is lobula natasha measuring 2.4 x 2.2 cm. Predominantly in segment II but extends slightly inferior into segment I II. There are additional smaller satellite metastatic sites with the largest measuring 9 mm anteriorl y. Previously described PET/CT positive lesion in segment VII is not definitely identified is an enhanci ng lesion. There is a subcapsular area of enhancement measuring 5 mm over the RIGHT lobe of the liver . Additional metastatic site is likely in segment 5 measuring 1.2 x 1.4 cm. This is an area of prior treated metastatic disease but does not enhance today. There is an additional enhancing 8 mm nodule i n the medial segment of the LEFT hepatic lobe, anterior. This may be a small hemangioma and has been present since 06/08/2019 without increase in size. No pleural effusion. No adrenal mass. Spleen is normal size. No adenopathy is identified. There is ex tensive fecal retention throughout the colon which is probably related to the distal colonic strictur e. Moderate LEFT convex curvature of the lumbar spine. MR/MR abdomen wo/w con* [id number] IMPRESSION: 1. Metastatic lesion with satellite nodules in the lateral segment of the LEFT hepatic lobe. The largest mass measures 2.4 x 2.0 cm. 2. PET/CT positive segment VII metastatic site is not seen by MRI. 3. Metastatic lesion segment V measures 1.2 x 1.4 cm. 4. Additional enhancing nodule is stable over multiple years in the medial seg ment of the LEFT hepatic lobe which may be hemangioma. 5. Subcapsular area of enhancement measures 5 mm over the RIGHT lobe of the li emily suspicious for metastatic site.
== END 2020-04-13 08:17 | disposition home or self-care (01) ==
PROVIDERS: PCP Nurse Practitioner Family; Visit Provider Internal Medicine Hematology & Oncology
DX: C22.7 Other specified carcinomas of liver (principal); K76.89 Other specified diseases of liver
CPT/HCPCS: 74183; A9579

== ENCOUNTER → 2020-05-04 11:40 | Outpatient (BNVA) | payer MEDICARE, SELFPAY | PROVIDERS: PCP Nurse Practitioner Family; Visit Provider Internal Medicine | DX: Z20.828 Contact with and (suspected) exposure to other viral communicable diseases (principal) | CPT/HCPCS: 87635 ==

== ENCOUNTER 2020-05-18 11:00 | Outpatient (CLI) | payer MEDICARE, SELFPAY ==
[2020-05-18 11:41] LABS: Potassium 3.6 mmol/L (3.5-5.1)
== END 2020-05-18 11:01 | disposition home or self-care (01) ==
LOC: LAB 11:02
PROVIDERS: PCP Nurse Practitioner Family; Visit Provider Internal Medicine
DX: C18.7 Malignant neoplasm of sigmoid colon (principal)
CPT/HCPCS: 84132

== ENCOUNTER 2020-06-04 13:51 | Outpatient (CLI) | payer MEDICARE, SELFPAY ==
[2020-06-04] MEDS: alteplase 1 mg/mL SDV 2 mL 2 MG IV (14:10)
[2020-06-04 14:17] LABS: Basophils # 0.1 10^3/uL (0.0-0.1); Basophils % 1.3 %; Eosinophils # 0.3 10^3/uL (0.0-0.8); Eosinophils % 5.4 %; Hematocrit 39.7 % (37.0-47.0); Lymphocytes # 1.4 10^3/uL (0.8-4.8); Mean Corpuscular HGB Conc 30.2 g/dL (30.0-36.0); Mean Corpuscular Hemoglobin 28.2 pg (28.0-34.0); Mean Corpuscular Volume 93.4 fL (81-99); Monocytes # 0.5 10^3/uL (0.2-0.9); Monocytes % 7.8 %; Neutrophils # 3.81 10^3/uL (1.8-7.7); Neutrophils % 62.2 %; Nucleated Red Blood Cells % 0 %; Platelet Count 275 10^3/cmm (130-400); Red Blood Count 4.25 10^6/uL (4.1-5.3); Red Cell Distribution Width 15.5 % (12.1-15.1); White Blood Count 6.1 10^3/uL (4.0-10.0)
[2020-06-04 14:36] LABS: Alanine Aminotransferase 8 U/L (0-33); Albumin Level 3.9 g/dL (3.5-5.2); Alkaline Phosphatase 140 IU/L (35-105); Anion Gap 14.8 (5-19); Aspartate Amino Transferase 17 U/L (0-32); Blood Urea Nitrogen 10 mg/dL (8-23); Carbon Dioxide 27 mmol/L (22-29); Chloride 102 mmol/L (98-107); Globulin 3.6 g/dL (1.3-4.6); Glucose 89 mg/dL (65-115); Osmolality Calculated 289 mOsm/kg (285-295); Potassium 3.8 mmol/L (3.5-5.1); Sodium 140 mmol/L (136-145); Total Bilirubin 0.4 mg/dL (0.15-1.2); Total Protein 7.5 g/dL (6.6-8.7)
--- NOTE | 2020-06-06 17:20 | ONC FU_ITS ---
Dr. Cat follow up note Patient: Elaine Garcia Unit #: [id number]: [id number] Dicatated By: Abdullahi Cat M.D.Date of Visit:Jun 04, 2020 Onc Med Follow-up/Prog Note History of Present Illness: Mrs. Byrne is a 80 -year-old female with history of chronic back pain for which she was taking ibuprofen for the last 4 months. She went to see her primary care physician for routine lab workup and follow-up and found to have severe anemia. Her CBC checked on 05/05/2019 shows white blood count 7.2 hemoglobin 6.7 crit 23.2 platelets 367,000 MCV 65.5 iron studies showed ferritin 6 iron 17 saturation for TIBC 425 and CMP was within normal range. Patient was given 2 units of packed RBCs. Patient said she was feeling weak and tired but thought it was due to old age . She had had no palpitations, no shortness of breath, no history of melena or hematochezia, no history of jaundice, no history of weight loss, no history of hemoptysis or hematemesis, no history of hematuria. No history of weight loss. No history of abdominal pain. Patient has history of peptic ulcer in the past. Last colonoscopy was done 5 years ago and at that time she was found to have some polyps, there were removed as per patient it was negative for any malignancy. Mrs Garcia underwent EGD and colonoscopy by Dr. Haas on 06/07/2019 Showed distal colon/sigmoid mass and biopsy was obtained which shows infiltrating adenocarcinoma CT scan of abdomen pelvis done on 06/08/2019 showed colonic mass involving descending and sigmoid colon with luminal narrowing measuring over length of 6.4 cm and normal size liver. There are several hypoechoic nodules within the liver. The largest and most concerning is in the inferior right lobe measuring 2.2 x 1.3 cm. There are a few additional scattered hypodensities within the remaining liver. CT PET scan done on 06/18/2019 showed hypermetabolic colonic mass in the descending colon at sigmoid with SUV of 18.7. And two hypermetabolic hepatic lesions also seen, one is in the lateral right lobe, segment 7 measuring 1.2 cm with SUV 5.3 and second one in the left lobe measuring 1.3 cm with SUV of 6.5 Next generation sequencing showed K-marti/N marti wild type,BRAF mutation not detected, MSI/MMR intact. recommended treatment with modified FOLFOX and vectibix. She began her first treatment on July 18, 2019 After 6 treatments, follow-up CT PET scan done on 10/14/2019 showed resolution of hepatic metastatic disease and significant improvement in the rectosigmoid mass now SUV 10.75 compared to 18.7 on 06/18/2019. Her last chemotherapy was on October 03, 2019 which completed 6 cycles of FOLFOX and vectibix. She presented the following week for a follow-up as she was having hypokalemia and hypomagnesemia. Her last potassium infusion was 20 mEq here on October 17, 2019. She was taking 20 mEq daily at home. Subsequently started having nausea and off and on vomiting and abdominal cramping was treated with hydration and symptomatic as outpatient on 10/27/2019 patient went to [facility] with persistent but progressive abdominal pain nausea vomiting and underwent CT scan of abdomen pelvis which showed new 0.9 cm hypodense nodule in the anterior left liver lobe. The other low-density nodules previously identified in the liver are not visualized. Calcified sclerotic lesion in the proximal sigmoid colon with distended stool filled colon proximal to the lesion with the mild wall thickening. There is a diffuse dilatation of small bowel with fecalization , measuring up to 4.2 cm. No abdominal or pelvic lymphadenopathy seen. Mrs Garcia came to office on 10/31/2019 with progressive constipation but no abdominal pain, at that time clinical impression was colon obstruction versus ileus. Her case was discussed with her son Dakota Garcia in [facility]. Mrs Garcia was sent to [facility] [place] via ambulance and underwent sigmoid colon resection on 11/03/2019. The final pathology report showed residual tumor, 3.5 cm moderately differentiated, tumor invades through muscularis propria into pericolic colorectal tissue with clear surgical margin and, lymphovascular invasion present ypT3 , 4/ 16 lymph nodes showed metastatic disease ypN2a. Patient tolerated procedure well, Case was discussed with Dr. Garcia and his colleague Dr. Cat-medical oncologist in [place] and and it was decided to start her on a Avastin/Xeloda and repeat CT PET scan after 3 or 4 cycles if it shows good response then tackle liver mets. She started on a Avastin/Xeloda on January 16, 2020. Last dose of a Avastin was given on March 21, 2020 and last dose of Xeloda was taken on April 04, 2020 . Underwent follow-up CT PET scan on March 30, 2020 and the impression was new lesions of both lobes and the liver consistent with metastatic involvement in addition to 2 prominent lesions small foci are present which may be further evaluated with MRI scan of the liver. No other findings suggestive of tumor recurrence or progression. Case was discussed with Dr. Garcia, surgeon and patient's son in [place], who has evaluated and compared latest CT PET scan with the previous one and his impression was no significant change from previous scan e.g. doubtful new lesions. Subsequently Underwent partial left hepatic lobectomy, right hepatic lobe wedge resection and wedge resection of segment 7 and 8 along with cholecystectomy on May 09, 2020 and final pathology report showed metastatic colorectal adenocarcinoma largest mets 4 cm, involving left hepatic lobe 1.8 cm invasive adenocarcinoma involving the right hepatic lobe. And 0.4 cm metastatic colorectal carcinoma involving segment 7. . Came for follow-up, denies any specific complaint except generalized weakness and fatigue now recovering from surgery. But no fever chills, no nausea or vomiting, no diarrhea or constipation mild right upper quadrant discomfort/pain not being controlled with Motrin Medications: Furosemide 1 Tablet (of 40 mg) Oral daily, Glimepiride 1 Tablet (of 2 mg) Oral b.i.d., LORazepam 0.5 - 1 Tablet (of 1 mg) Oral t.i.d. PRN, Losartan Potassium 1 Tablet (of 100 mg) Oral daily, metFORMIN HCl 2 Tablet (of 500 mg) Oral b.i.d., Potassium Chloride ER 2 Tablet (of 10 meq) Tablet, controlled release Oral daily, Pravastatin Sodium 1 Tablet (of 40 mg) Oral daily, Prochlorperazine Maleate 1 Tablet (of 10 mg) Oral q 4 hours PRN Allergies: Penicillin Review of Systems: Constitutional - Appetite is poor and weight is stable. No fever, chills, hot flashes, or night sweats. Energy level is poor, ENMT - No sinus congestion/drainage. No mouth sores. No sore throat or difficulty swallowing, Hematologic/Lymphatic - No abnormal bruising or bleeding, Respiratory - No shortness of breath. No cough. No pleuritic pain or hemoptysis, Cardiovascular - No angina pain. No palpitations, Gastrointestinal - Positive for nausea and vomiting. No heartburn or acid reflux. No diarrhea or constipation. No blood in the stool or black stools, Genitourinary (F) - No dysuria or hematuria. No urinary frequency. No urgency or incontinence, Musculoskeletal - Positive for back pain, Neurologic - No headache or dizziness, Psychiatric - No anxiety or depression. No insomnia. Vital Signs: Performed on Jun 04, 2020 14:47 Height - 60.00 in Weight - 135.2 lbs (LOW) BSA - 1.58 sq.m BMI - 26.40 Temperature - 98.3 F (LOW) Pulse - 76 /min Respiration - 18 /min BP - 140/74 mm(hg) O2 Sat - 100 % Pain - 0 Performance Status: 1 - No physically strenuous activity, but ambulatory and able to carry out light or sedentary work (e.g. office work, light house work). (ECOG) Physical Examination: ENMT - No mouth sores, no thrush, no jaundice, Respiratory - Lungs are clear to auscultation, Cardiovascular - Regular rate and rhythm of heart, Abdomen - Soft, bowel sounds present, well-healed surgical scar right upper quadrant, no abdominal fullness or tenderness on deep palpation, Extremities - No visible edema or rash. Lab/Imaging: Test performed on Apr 11, 2020 08:35 Ua Micro: WBC 25-40 /hpf Ua Micro: RBC NONE /hpf Ua Micro: Squam Epith Cells 5-10 Ua Micro: Bacteria 2+ Ua Micro: Mucous TRACE Test performed on Apr 11, 2020 08:25 Sodium 140 mmol/L Potassium 4.0 mmol/L Chloride 101 mmol/L CO2 27 mmol/L Anion Gap 16.0 BUN 18 mg/dL Creatinine 0.8 mg/dL Cr Clearance (Est) 52.8400 mL/min Glucose 111 mg/dL Calcium 10.3 mg/dL Protein, Total 7.0 g/dL Albumin 4.5 g/dL Globulin 2.5 g/dL Bilirubin, Total 0.8 mg/dL ALT (SGPT) 16 U/L AST (SGOT) 23 U/L Alkaline Phosphatase 85 IU/L WBC 5.8 10 3/uL RBC 4.40 10 6/uL HGB 12.7 g/dL HCT 40.3 % MCV 91.6 fL MCH 28.9 pg MCHC 31.5 g/dL RDW 20.1 % Platelet Count 187 10 3/cmm MPV 10.2 fL Neutrophils 3.57 10 3/uL Lymphocytes 1.4 10 3/uL Monocytes 0.6 10 3/uL Eosinophils 0.2 10 3/uL Basophils 0.1 10 3/uL Neutrophil % 61.7 % Lymphocyte % 23.8 % Monocyte % 10.4 % Eosinophil % 2.9 % Basophils % 0.9 % NRBC % 0 % CEA 18.0 ng/mL Impression: Moderately differentiated infiltrating adenocarcinoma. Status post sigmoid colon resection done on 11/03/2019 final pathology report showed 3.5 cm moderately differentiated adenocarcinoma tumor invades through muscularis propria into pericolorectal fat ypT3 and 4 out of 16 lymph node examined showed metastatic disease ypN2a MMR D intact CT scan of abdomen done on 06/08/2019 showed short segment 80 of significant circumferential mucosal thickening extending over mental 6.4 cm involving descending colon and proximal sigmoid. Moderate narrowing of the lumen. There is adjacent pericolonic stranding with a wall thickening and soft tissue infiltration. There is a small adjacent lymph node measuring 5 mm. Normal size liver. There are several hypoechoic nodules within the liver. The largest and most concerning is the inferior right lobe measuring 2.2 x 1.3 cm there are a few additional scattered hypodensities within the remaining liver. CEA checked on 06/15/2019 was 6.3 Well compensated, Microcytic hypochromic anemia due to iron deficiency Most likely due to bleeding from colon cancer CBC done on 05/05/2019 showed white blood count 7.2 hemoglobin 6.7 hematocrit 23.2 MCV 65.5 platelets 367,000 and ferritin 6, iron saturation 4%, iron 17. Status post 2 units of packed RBC with that her repeat CBC done on 05/24/2019 showed white blood count 5.5 hemoglobin 9.1 g, hematocrit 29.4 MCV 70.9 platelets 320,000 with a normal differential. colonoscopy was done 5 years ago, some polyps were removed, as per patient, there were benign. Distant past history of peptic ulcer disease. discussed with Mrs Garcia regarding her CT PET scan which confirmed hepatic metastatic disease and next initially sequencing which showed MSI/MMR intact, K-marti/ Nras wild type, BRAF no mutation detected. dicussed the role of systemic chemotherapy in stage IV colon cancer with the patient and family and earlier with her son, Dakota Garcia MD who is a surgeon in [facility]. Based on next gene sequencing, it was recommended that she proceed with panitumumab 6 mg/kg every 2 weeks along with FOLFOX. Considering her age and this stage IV disease, there was consideration for dose modification. She did obtain Port-A-Cath placement to facilitate chemotherapy. The plan was to give her 6 cycles of this regimen followed by CT PET scan to assess the response. Her last chemotherapy was on 10/03/2019 which completed 6 cycles of chemotherapy. Follow-up CT PET scan done after 6 cycles of hemotherapy with FOLFOX/panitumumab showed excellent response with resolution of hepatic metastatic disease and significant improvement in the primary in the rectosigmoid colon: SUV 10.75 compared to 18.7 at the time of diagnosis.In October 2019 patient developed symptoms consistent with intestinal obstruction, patient was transferred to [place] to her son Dr. Garcia, and there she underwent sigmoid colon resection on November 03, 2019 and the final pathology report came back yT3, N2a and at that time her case was discussed with Dr. Garcia and his colleague Dr. Cat, medical oncologist and decided to proceed with a Avastin/Xeloda and repeat CT PET scan Was done on March 30, 2020 which showed persistent hepatic disease with possible new lesions, MRI liver was suggested and no other distant mets seen. Plan: Discussed with patient regarding her labs white blood count 6.1 hemoglobin 12 hematocrit 39.7 platelets 275,000 CMP within normal limits and her hepatic metastectomy pathology report which showed multiple metastatic lesions all resected with clear margins Clinically, patient is doing reasonably well now recovering from hepatic surgery. Her follow-up lab work-up is within normal range. Case was discussed with her son Dr. Garcia who was involved in her surgery, as per discussion all grossly visible hepatic mets were dissected. But concern is micro-mets for which treatment options including, considering her age oral Xeloda versus observation versus FOLFIRI, Dr. Garcia will discuss her case in the tumor board on coming Thursday and then will discuss further and plan accordingly patient will return to clinic in 2 weeks for further discussion As far as right upper quadrant pain is concerned, will consider Percocet 5/325 instead of Motrin, patient will take 1 to 2 tablet every 4-6 hour as needed. Signed By: Abdullahi Cat M.D. <<Signature on File>>
== END 2020-06-04 13:52 | disposition home or self-care (01) ==
LOC: ONCMED 13:57
PROVIDERS: PCP Nurse Practitioner Family; Visit Provider Internal Medicine Hematology & Oncology
DX: C18.8 Malignant neoplasm of overlapping sites of colon (principal); C78.7 Secondary malignant neoplasm of liver and intrahepatic bile duct; C77.2 Secondary and unspecified malignant neoplasm of intra-abdominal lymph nodes; R10.11 Right upper quadrant pain; Z90.49 Acquired absence of other specified parts of digestive tract; Z87.11 Personal history of peptic ulcer disease
CPT/HCPCS: 36415; 36593; 80053; 85025; 96374; 99214; J2997

== ENCOUNTER 2020-06-18 13:49 | Outpatient (CLI) | payer MEDICARE, SELFPAY ==
[2020-06-18] MEDS: alteplase 1 mg/mL SDV 2 mL 2 MG IV (14:13)
[2020-06-18 14:37] LABS: Basophils # 0.1 10^3/uL (0.0-0.1); Basophils % 0.9 %; Eosinophils # 0.3 10^3/uL (0.0-0.8); Hematocrit 42.2 % (37.0-47.0); Hemoglobin 12.5 g/dL (11.5-15.3); Lymphocytes # 1.4 10^3/uL (0.8-4.8); Lymphocytes % 19.3 %; Mean Corpuscular HGB Conc 29.6 g/dL (30.0-36.0); Mean Corpuscular Hemoglobin 27.5 pg (28.0-34.0); Mean Platelet Volume 10.5 fL (7.4-10.4); Monocytes # 0.5 10^3/uL (0.2-0.9); Monocytes % 6.6 %; Neutrophils # 4.83 10^3/uL (1.8-7.7); Neutrophils % 68.9 %; Nucleated Red Blood Cells % 0 %; Platelet Count 196 10^3/cmm (130-400); Red Blood Count 4.54 10^6/uL (4.1-5.3); Red Cell Distribution Width 15.5 % (12.1-15.1)
[2020-06-18 14:48] LABS: Alanine Aminotransferase 13 U/L (0-33); Alkaline Phosphatase 156 IU/L (35-105); Aspartate Amino Transferase 21 U/L (0-32); Blood Urea Nitrogen 13 mg/dL (8-23); Calcium 9.4 mg/dL (8.5-10.5); Carbon Dioxide 26 mmol/L (22-29); Chloride 100 mmol/L (98-107); Globulin 3.1 g/dL (1.3-4.6); Glucose 76 mg/dL (65-115); Osmolality Calculated 283 mOsm/kg (285-295); Sodium 137 mmol/L (136-145); Total Bilirubin 0.4 mg/dL (0.15-1.2); Total Protein 7.1 g/dL (6.6-8.7)
--- NOTE | 2020-06-18 15:49 | ONC FU_ITS ---
Dr. Cat follow up note Patient: Elaine Garcia Unit #: [id number]: 1940 Dicatated By: Abdullahi Cat M.D.Date of Visit:Jun 18, 2020 Onc Med Follow-up/Prog Note History of Present Illness: Mrs. Byrne is a 80 -year-old female with history of chronic back pain for which she was taking ibuprofen for the last 4 months. She went to see her primary care physician for routine lab workup and follow-up and found to have severe anemia. Her CBC checked on 05/05/2019 shows white blood count 7.2 hemoglobin 6.7 crit 23.2 platelets 367,000 MCV 65.5 iron studies showed ferritin 6 iron 17 saturation for TIBC 425 and CMP was within normal range. Patient was given 2 units of packed RBCs. Patient said she was feeling weak and tired but thought it was due to old age . She had had no palpitations, no shortness of breath, no history of melena or hematochezia, no history of jaundice, no history of weight loss, no history of hemoptysis or hematemesis, no history of hematuria. No history of weight loss. No history of abdominal pain. Patient has history of peptic ulcer in the past. Last colonoscopy was done 5 years ago and at that time she was found to have some polyps, there were removed as per patient it was negative for any malignancy. Mrs Garcia underwent EGD and colonoscopy by Dr. Haas on 06/07/2019 Showed distal colon/sigmoid mass and biopsy was obtained which shows infiltrating adenocarcinoma CT scan of abdomen pelvis done on 06/08/2019 showed colonic mass involving descending and sigmoid colon with luminal narrowing measuring over length of 6.4 cm and normal size liver. There are several hypoechoic nodules within the liver. The largest and most concerning is in the inferior right lobe measuring 2.2 x 1.3 cm. There are a few additional scattered hypodensities within the remaining liver. CT PET scan done on 06/18/2019 showed hypermetabolic colonic mass in the descending colon at sigmoid with SUV of 18.7. And two hypermetabolic hepatic lesions also seen, one is in the lateral right lobe, segment 7 measuring 1.2 cm with SUV 5.3 and second one in the left lobe measuring 1.3 cm with SUV of 6.5 Next generation sequencing showed K-marti/N marti wild type,BRAF mutation not detected, MSI/MMR intact. recommended treatment with modified FOLFOX and vectibix. She began her first treatment on July 18, 2019 After 6 treatments, follow-up CT PET scan done on 10/14/2019 showed resolution of hepatic metastatic disease and significant improvement in the rectosigmoid mass now SUV 10.75 compared to 18.7 on 06/18/2019. Her last chemotherapy was on October 03, 2019 which completed 6 cycles of FOLFOX and vectibix. She presented the following week for a follow-up as she was having hypokalemia and hypomagnesemia. Her last potassium infusion was 20 mEq here on October 17, 2019. She was taking 20 mEq daily at home. Subsequently started having nausea and off and on vomiting and abdominal cramping was treated with hydration and symptomatic as outpatient on 10/27/2019 patient went to [facility] with persistent but progressive abdominal pain nausea vomiting and underwent CT scan of abdomen pelvis which showed new 0.9 cm hypodense nodule in the anterior left liver lobe. The other low-density nodules previously identified in the liver are not visualized. Calcified sclerotic lesion in the proximal sigmoid colon with distended stool filled colon proximal to the lesion with the mild wall thickening. There is a diffuse dilatation of small bowel with fecalization , measuring up to 4.2 cm. No abdominal or pelvic lymphadenopathy seen. Mrs Garcia came to office on 10/31/2019 with progressive constipation but no abdominal pain, at that time clinical impression was colon obstruction versus ileus. Her case was discussed with her son Dakota Garcia in [facility]. Mrs Garcia was sent to [facility] [place] via ambulance and underwent sigmoid colon resection on 11/03/2019. The final pathology report showed residual tumor, 3.5 cm moderately differentiated, tumor invades through muscularis propria into pericolic colorectal tissue with clear surgical margin and, lymphovascular invasion present ypT3 , 4/ 16 lymph nodes showed metastatic disease ypN2a. Patient tolerated procedure well, Case was discussed with Dr. Garcia and his colleague Dr. Cat-medical oncologist in [place] and and it was decided to start her on a Avastin/Xeloda and repeat CT PET scan after 3 or 4 cycles if it shows good response then tackle liver mets. She started on a Avastin/Xeloda on January 16, 2020. Last dose of a Avastin was given on March 21, 2020 and last dose of Xeloda was taken on April 04, 2020 . Underwent follow-up CT PET scan on March 30, 2020 and the impression was new lesions of both lobes and the liver consistent with metastatic involvement in addition to 2 prominent lesions small foci are present which may be further evaluated with MRI scan of the liver. No other findings suggestive of tumor recurrence or progression. Case was discussed with Dr. Garcia, surgeon and patient's son in [place], who has evaluated and compared latest CT PET scan with the previous one and his impression was no significant change from previous scan e.g. doubtful new lesions. Subsequently Underwent partial left hepatic lobectomy, right hepatic lobe wedge resection and wedge resection of segment 7 and 8 along with cholecystectomy on May 09, 2020 and final pathology report showed metastatic colorectal adenocarcinoma largest mets 4 cm, involving left hepatic lobe 1.8 cm invasive adenocarcinoma involving the right hepatic lobe. And 0.4 cm metastatic colorectal carcinoma involving segment 7. . Came for follow-up, denies any specific complaints, no fever chills, no nausea or vomiting, no diarrhea constipation, right upper quadrant pain is resolving. Medications: Furosemide 1 Tablet (of 40 mg) Oral daily, Glimepiride 1 Tablet (of 2 mg) Oral b.i.d., LORazepam 0.5 - 1 Tablet (of 1 mg) Oral t.i.d. PRN, Losartan Potassium 1 Tablet (of 100 mg) Oral daily, metFORMIN HCl 2 Tablet (of 500 mg) Oral b.i.d., Potassium Chloride ER 2 Tablet (of 10 meq) Tablet, controlled release Oral daily, Pravastatin Sodium 1 Tablet (of 40 mg) Oral daily, Prochlorperazine Maleate 1 Tablet (of 10 mg) Oral q 4 hours PRN Allergies: Penicillin Review of Systems: Review of Systems is not available for this patient. Vital Signs: Performed on Jun 18, 2020 15:14 Height - 60.00 in Weight - 136.4 lbs (HIGH) BSA - 1.59 sq.m BMI - 26.64 Temperature - 97.8 F (LOW) Pulse - 80 /min Respiration - 20 /min BP - 120/72 mm(hg) O2 Sat - 97 % Pain - 0 Performance Status: 0 - Fully active, able to carry on all predisease activities without restrictions. (ECOG) Physical Examination: ENMT - No mouth sores, no thrush, no jaundice, Respiratory - Lungs are clear to auscultation, Cardiovascular - Regular rate and rhythm of heart, Abdomen - Soft, bowel sounds present, Extremities - No visible edema. Lab/Imaging: Test performed on Apr 11, 2020 08:35 Ua Micro: WBC 25-40 /hpf Ua Micro: RBC NONE /hpf Ua Micro: Squam Epith Cells 5-10 Ua Micro: Bacteria 2+ Ua Micro: Mucous TRACE Test performed on Apr 11, 2020 08:25 Sodium 140 mmol/L Potassium 4.0 mmol/L Chloride 101 mmol/L CO2 27 mmol/L Anion Gap 16.0 BUN 18 mg/dL Creatinine 0.8 mg/dL Cr Clearance (Est) 52.8400 mL/min Glucose 111 mg/dL Calcium 10.3 mg/dL Protein, Total 7.0 g/dL Albumin 4.5 g/dL Globulin 2.5 g/dL Bilirubin, Total 0.8 mg/dL ALT (SGPT) 16 U/L AST (SGOT) 23 U/L Alkaline Phosphatase 85 IU/L WBC 5.8 10 3/uL RBC 4.40 10 6/uL HGB 12.7 g/dL HCT 40.3 % MCV 91.6 fL MCH 28.9 pg MCHC 31.5 g/dL RDW 20.1 % Platelet Count 187 10 3/cmm MPV 10.2 fL Neutrophils 3.57 10 3/uL Lymphocytes 1.4 10 3/uL Monocytes 0.6 10 3/uL Eosinophils 0.2 10 3/uL Basophils 0.1 10 3/uL Neutrophil % 61.7 % Lymphocyte % 23.8 % Monocyte % 10.4 % Eosinophil % 2.9 % Basophils % 0.9 % NRBC % 0 % CEA 18.0 ng/mL Impression: Moderately differentiated infiltrating adenocarcinoma. Status post sigmoid colon resection done on 11/03/2019 final pathology report showed 3.5 cm moderately differentiated adenocarcinoma tumor invades through muscularis propria into pericolorectal fat ypT3 and 4 out of 16 lymph node examined showed metastatic disease ypN2a MMR D intact CT scan of abdomen done on 06/08/2019 showed short segment 80 of significant circumferential mucosal thickening extending over mental 6.4 cm involving descending colon and proximal sigmoid. Moderate narrowing of the lumen. There is adjacent pericolonic stranding with a wall thickening and soft tissue infiltration. There is a small adjacent lymph node measuring 5 mm. Normal size liver. There are several hypoechoic nodules within the liver. The largest and most concerning is the inferior right lobe measuring 2.2 x 1.3 cm there are a few additional scattered hypodensities within the remaining liver. CEA checked on 06/15/2019 was 6.3 Well compensated, Microcytic hypochromic anemia due to iron deficiency Most likely due to bleeding from colon cancer CBC done on 05/05/2019 showed white blood count 7.2 hemoglobin 6.7 hematocrit 23.2 MCV 65.5 platelets 367,000 and ferritin 6, iron saturation 4%, iron 17. Status post 2 units of packed RBC with that her repeat CBC done on 05/24/2019 showed white blood count 5.5 hemoglobin 9.1 g, hematocrit 29.4 MCV 70.9 platelets 320,000 with a normal differential. colonoscopy was done 5 years ago, some polyps were removed, as per patient, there were benign. Distant past history of peptic ulcer disease. discussed with Mrs Garcia regarding her CT PET scan which confirmed hepatic metastatic disease and next initially sequencing which showed MSI/MMR intact, K-marti/ Nras wild type, BRAF no mutation detected. dicussed the role of systemic chemotherapy in stage IV colon cancer with the patient and family and earlier with her son, Dakota Garcia MD who is a surgeon in [facility]. Based on next gene sequencing, it was recommended that she proceed with panitumumab 6 mg/kg every 2 weeks along with FOLFOX. Considering her age and this stage IV disease, there was consideration for dose modification. She did obtain Port-A-Cath placement to facilitate chemotherapy. The plan was to give her 6 cycles of this regimen followed by CT PET scan to assess the response. Her last chemotherapy was on 10/03/2019 which completed 6 cycles of chemotherapy. Follow-up CT PET scan done after 6 cycles of hemotherapy with FOLFOX/panitumumab showed excellent response with resolution of hepatic metastatic disease and significant improvement in the primary in the rectosigmoid colon: SUV 10.75 compared to 18.7 at the time of diagnosis.In October 2019 patient developed symptoms consistent with intestinal obstruction, patient was transferred to [place] to her son Dr. Garcia, and there she underwent sigmoid colon resection on November 03, 2019 and the final pathology report came back yT3, N2a and at that time her case was discussed with Dr. Garcia and his colleague Dr. Cat, medical oncologist and decided to proceed with a Avastin/Xeloda and repeat CT PET scan Was done on March 30, 2020 which showed persistent hepatic disease with possible new lesions, MRI liver was suggested and no other distant mets seen. Plan: Discussed with patient regarding her labs white blood count 7 hemoglobin 12.5 hematocrit 42.2 platelets 196,000 CMP within normal limits Clinically, patient doing well with no signs symptom suggestive of disease progression, case was discussed with her son Dr. Garcia, who was involved in her surgery and he did discuss her case in tumor board in [place] where it was decided to proceed with oral Xeloda alone and discontinue Avastin. Patient will resume her oral Xeloda alone, which she was taking prior to liver surgery, she will continue Xeloda 850 mg/m??? p.o. twice daily day 1 through 14 every 21 days and will consider follow-up CT PET scan after 4 cycles. She will return to clinic in 3 weeks after initiating her oral Xeloda therapy Signed By: Abdullahi Cat M.D. <<Signature on File>>
== END 2020-06-18 13:50 | disposition home or self-care (01) ==
LOC: ONCMED 13:52
PROVIDERS: PCP Nurse Practitioner Family; Visit Provider Internal Medicine Hematology & Oncology
DX: C18.8 Malignant neoplasm of overlapping sites of colon (principal); C78.7 Secondary malignant neoplasm of liver and intrahepatic bile duct; D50.9 Iron deficiency anemia, unspecified; K25.9 Gastric ulcer, unspecified as acute or chronic, without hemorrhage or perforation; Z79.899 Other long term (current) drug therapy
CPT/HCPCS: 36415; 36593; 80053; 85025; 96374; 99214; J2997

== ENCOUNTER 2020-07-13 05:53 | Outpatient (CLI) | payer MEDICARE, SELFPAY ==
[2020-07-13 09:02] LABS: Basophils # 0.1 10^3/uL (0.0-0.1); Eosinophils # 0.3 10^3/uL (0.0-0.8); Eosinophils % 3.4 %; Hematocrit 42.5 % (37.0-47.0); Hemoglobin 12.7 g/dL (11.5-15.3); Lymphocytes # 1.4 10^3/uL (0.8-4.8); Lymphocytes % 17.7 %; Mean Corpuscular HGB Conc 29.9 g/dL (30.0-36.0); Mean Corpuscular Hemoglobin 27.3 pg (28.0-34.0); Mean Corpuscular Volume 91.4 fL (81-99); Monocytes # 0.7 10^3/uL (0.2-0.9); Monocytes % 9.3 %; Neutrophils # 5.35 10^3/uL (1.8-7.7); Neutrophils % 68.3 %; Nucleated Red Blood Cells % 0 %; Platelet Count 185 10^3/cmm (130-400); Red Blood Count 4.65 10^6/uL (4.1-5.3); Red Cell Distribution Width 17.7 % (12.1-15.1); White Blood Count 7.8 10^3/uL (4.0-10.0)
[2020-07-13 09:31] LABS: Alanine Aminotransferase 55 U/L (0-33); Albumin Level 4.2 g/dL (3.5-5.2); Alkaline Phosphatase 172 IU/L (35-105); Anion Gap 13.2 (5-19); Aspartate Amino Transferase 70 U/L (0-32); Blood Urea Nitrogen 11 mg/dL (8-23); Calcium 10.3 mg/dL (8.5-10.5); Carbon Dioxide 29 mmol/L (22-29); Chloride 102 mmol/L (98-107); Glucose 104 mg/dL (65-115); Osmolality Calculated 290 mOsm/kg (285-295); Potassium 4.2 mmol/L (3.5-5.1); Sodium 140 mmol/L (136-145); Total Bilirubin 0.4 mg/dL (0.15-1.2); Total Protein 7.2 g/dL (6.6-8.7)
--- NOTE | 2020-07-13 11:16 | ONC FU_ITS ---
Dr. Cat follow up note Patient: Elaine Garcia Unit #: [id number]: [id number] Dicatated By: Abdullahi Cat M.D.Date of Visit:Jul 13, 2020 Onc Med Follow-up/Prog Note History of Present Illness: Mrs. Byrne is a 80 -year-old female with history of chronic back pain for which she was taking ibuprofen for the last 4 months. She went to see her primary care physician for routine lab workup and follow-up and found to have severe anemia. Her CBC checked on 05/05/2019 shows white blood count 7.2 hemoglobin 6.7 crit 23.2 platelets 367,000 MCV 65.5 iron studies showed ferritin 6 iron 17 saturation for TIBC 425 and CMP was within normal range. Patient was given 2 units of packed RBCs. Patient said she was feeling weak and tired but thought it was due to old age . She had had no palpitations, no shortness of breath, no history of melena or hematochezia, no history of jaundice, no history of weight loss, no history of hemoptysis or hematemesis, no history of hematuria. No history of weight loss. No history of abdominal pain. Patient has history of peptic ulcer in the past. Last colonoscopy was done 5 years ago and at that time she was found to have some polyps, there were removed as per patient it was negative for any malignancy. Mrs Garcia underwent EGD and colonoscopy by Dr. Haas on 06/07/2019 Showed distal colon/sigmoid mass and biopsy was obtained which shows infiltrating adenocarcinoma CT scan of abdomen pelvis done on 06/08/2019 showed colonic mass involving descending and sigmoid colon with luminal narrowing measuring over length of 6.4 cm and normal size liver. There are several hypoechoic nodules within the liver. The largest and most concerning is in the inferior right lobe measuring 2.2 x 1.3 cm. There are a few additional scattered hypodensities within the remaining liver. CT PET scan done on 06/18/2019 showed hypermetabolic colonic mass in the descending colon at sigmoid with SUV of 18.7. And two hypermetabolic hepatic lesions also seen, one is in the lateral right lobe, segment 7 measuring 1.2 cm with SUV 5.3 and second one in the left lobe measuring 1.3 cm with SUV of 6.5 Next generation sequencing showed K-marti/N marti wild type,BRAF mutation not detected, MSI/MMR intact. recommended treatment with modified FOLFOX and vectibix. She began her first treatment on July 18, 2019 After 6 treatments, follow-up CT PET scan done on 10/14/2019 showed resolution of hepatic metastatic disease and significant improvement in the rectosigmoid mass now SUV 10.75 compared to 18.7 on 06/18/2019. Her last chemotherapy was on October 03, 2019 which completed 6 cycles of FOLFOX and vectibix. She presented the following week for a follow-up as she was having hypokalemia and hypomagnesemia. Her last potassium infusion was 20 mEq here on October 17, 2019. She was taking 20 mEq daily at home. Subsequently started having nausea and off and on vomiting and abdominal cramping was treated with hydration and symptomatic as outpatient on 10/27/2019 patient went to [facility] with persistent but progressive abdominal pain nausea vomiting and underwent CT scan of abdomen pelvis which showed new 0.9 cm hypodense nodule in the anterior left liver lobe. The other low-density nodules previously identified in the liver are not visualized. Calcified sclerotic lesion in the proximal sigmoid colon with distended stool filled colon proximal to the lesion with the mild wall thickening. There is a diffuse dilatation of small bowel with fecalization , measuring up to 4.2 cm. No abdominal or pelvic lymphadenopathy seen. Mrs Garcia came to office on 10/31/2019 with progressive constipation but no abdominal pain, at that time clinical impression was colon obstruction versus ileus. Her case was discussed with her son Dakota Garcia in [facility]. Mrs Garcia was sent to [facility] [place] via ambulance and underwent sigmoid colon resection on 11/03/2019. The final pathology report showed residual tumor, 3.5 cm moderately differentiated, tumor invades through muscularis propria into pericolic colorectal tissue with clear surgical margin and, lymphovascular invasion present ypT3 , 4/ 16 lymph nodes showed metastatic disease ypN2a. Patient tolerated procedure well, Case was discussed with Dr. Garcia and his colleague Dr. Cat-medical oncologist in [place] and and it was decided to start her on a Avastin/Xeloda and repeat CT PET scan after 3 or 4 cycles if it shows good response then tackle liver mets. She started on a Avastin/Xeloda on January 16, 2020. Last dose of a Avastin was given on March 21, 2020 and last dose of Xeloda was taken on April 04, 2020 . Underwent follow-up CT PET scan on March 30, 2020 and the impression was new lesions of both lobes and the liver consistent with metastatic involvement in addition to 2 prominent lesions small foci are present which may be further evaluated with MRI scan of the liver. No other findings suggestive of tumor recurrence or progression. Case was discussed with Dr. Garcia, surgeon and patient's son in [place], who has evaluated and compared latest CT PET scan with the previous one and his impression was no significant change from previous scan e.g. doubtful new lesions. Subsequently Underwent partial left hepatic lobectomy, right hepatic lobe wedge resection and wedge resection of segment 7 and 8 along with cholecystectomy on May 09, 2020 and final pathology report showed metastatic colorectal adenocarcinoma largest mets 4 cm, involving left hepatic lobe 1.8 cm invasive adenocarcinoma involving the right hepatic lobe. And 0.4 cm metastatic colorectal carcinoma involving segment 7. reStarted on maintenance therapy with single agent oral Xeloda on June 20, 2020, and plan was to continue Xeloda 850 mg/m??? p.o. twice a day/ her day 1-14 and repeat every 21 days, she completed her to weekly course on July 04, 2020 Came for follow-up, denies any specific complaints, no fever chills, no nausea or vomiting, no diarrhea constipation, no mouth sores, no skin rash, no jaundice, no abdominal pain, more energetic with good quality of life, patient has completed first cycle of chemotherapy after hepatic mets resection . Medications: Furosemide 1 Tablet (of 40 mg) Oral daily, Glimepiride 1 Tablet (of 2 mg) Oral b.i.d., LORazepam 0.5 - 1 Tablet (of 1 mg) Oral t.i.d. PRN, Losartan Potassium 1 Tablet (of 100 mg) Oral daily, metFORMIN HCl 2 Tablet (of 500 mg) Oral b.i.d., Potassium Chloride ER 2 Tablet (of 10 meq) Tablet, controlled release Oral daily, Pravastatin Sodium 1 Tablet (of 40 mg) Oral daily, Prochlorperazine Maleate 1 Tablet (of 10 mg) Oral q 4 hours PRN Allergies: Penicillin Review of Systems: Review of Systems is not available for this patient. Vital Signs: Performed on Jul 13, 2020 08:38 Height - 60.00 in Weight - 138.6 lbs (HIGH) BSA - 1.60 sq.m BMI - 27.07 Temperature - 98.3 F (LOW) Pulse - 64 /min Respiration - 20 /min BP - 138/72 mm(hg) O2 Sat - 95 % (LOW) Pain - 0 Performance Status: 0 - Fully active, able to carry on all predisease activities without restrictions. (ECOG) Physical Examination: ENMT - No mouth sores, no thrush, no jaundice, Respiratory - Lungs are clear to auscultation, Cardiovascular - Regular rate and rhythm of heart, Abdomen - Soft, bowel sounds present, Extremities - No visible edema or rash. Lab/Imaging: Test performed on Jun 18, 2020 14:05 Sodium 137 mmol/L Potassium 4.0 mmol/L Chloride 100 mmol/L CO2 26 mmol/L Anion Gap 15.0 BUN 13 mg/dL Creatinine 0.8 mg/dL Cr Clearance (Est) 51.9700 mL/min Glucose 76 mg/dL Osmolality - Calculated 283 mOsm/kg Calcium 9.4 mg/dL Protein, Total 7.1 g/dL Albumin 4.0 g/dL Globulin 3.1 g/dL Bilirubin, Total 0.4 mg/dL ALT (SGPT) 13 U/L AST (SGOT) 21 U/L Alkaline Phosphatase 156 IU/L WBC 7.0 10 3/uL RBC 4.54 10 6/uL HGB 12.5 g/dL HCT 42.2 % MCV 93.0 fL MCH 27.5 pg MCHC 29.6 g/dL RDW 15.5 % Platelet Count 196 10 3/cmm MPV 10.5 fL Neutrophils 4.83 10 3/uL Lymphocytes 1.4 10 3/uL Monocytes 0.5 10 3/uL Eosinophils 0.3 10 3/uL Basophils 0.1 10 3/uL Neutrophil % 68.9 % Lymphocyte % 19.3 % Monocyte % 6.6 % Eosinophil % 4.0 % Basophils % 0.9 % NRBC % 0 % Test performed on Apr 11, 2020 08:35 Ua Color Yellow Ua Appearance SL Hazy Ua Glucose 1+ Ua Bilirubin Neg Ua Ketones Negative Ua Specific Vian 1.020 Ua Blood Neg Ua pH 5.0 Ua Protein Neg Ua Nitrites Positive Ua Leukocyte Esterase 1+ Ua Micro: WBC 25-40 /hpf Ua Micro: RBC NONE /hpf Ua Micro: Squam Epith Cells 5-10 Ua Micro: Bacteria 2+ Ua Micro: Mucous TRACE Test performed on Apr 11, 2020 08:25 CEA 18.0 ng/mL Impression: Moderately differentiated infiltrating adenocarcinoma. Status post sigmoid colon resection done on 11/03/2019 final pathology report showed 3.5 cm moderately differentiated adenocarcinoma tumor invades through muscularis propria into pericolorectal fat ypT3 and 4 out of 16 lymph node examined showed metastatic disease ypN2a MMR D intact CT scan of abdomen done on 06/08/2019 showed short segment 80 of significant circumferential mucosal thickening extending over mental 6.4 cm involving descending colon and proximal sigmoid. Moderate narrowing of the lumen. There is adjacent pericolonic stranding with a wall thickening and soft tissue infiltration. There is a small adjacent lymph node measuring 5 mm. Normal size liver. There are several hypoechoic nodules within the liver. The largest and most concerning is the inferior right lobe measuring 2.2 x 1.3 cm there are a few additional scattered hypodensities within the remaining liver. CEA checked on 06/15/2019 was 6.3 Well compensated, Microcytic hypochromic anemia due to iron deficiency Most likely due to bleeding from colon cancer CBC done on 05/05/2019 showed white blood count 7.2 hemoglobin 6.7 hematocrit 23.2 MCV 65.5 platelets 367,000 and ferritin 6, iron saturation 4%, iron 17. Status post 2 units of packed RBC with that her repeat CBC done on 05/24/2019 showed white blood count 5.5 hemoglobin 9.1 g, hematocrit 29.4 MCV 70.9 platelets 320,000 with a normal differential. colonoscopy was done 5 years ago, some polyps were removed, as per patient, there were benign. Distant past history of peptic ulcer disease. discussed with Mrs Garcia regarding her CT PET scan which confirmed hepatic metastatic disease and next initially sequencing which showed MSI/MMR intact, K-marti/ Nras wild type, BRAF no mutation detected. dicussed the role of systemic chemotherapy in stage IV colon cancer with the patient and family and earlier with her son, Dakota Garcia MD who is a surgeon in [facility]. Based on next gene sequencing, it was recommended that she proceed with panitumumab 6 mg/kg every 2 weeks along with FOLFOX. Considering her age and this stage IV disease, there was consideration for dose modification. She did obtain Port-A-Cath placement to facilitate chemotherapy. The plan was to give her 6 cycles of this regimen followed by CT PET scan to assess the response. Her last chemotherapy was on 10/03/2019 which completed 6 cycles of chemotherapy. Follow-up CT PET scan done after 6 cycles of hemotherapy with FOLFOX/panitumumab showed excellent response with resolution of hepatic metastatic disease and significant improvement in the primary in the rectosigmoid colon: SUV 10.75 compared to 18.7 at the time of diagnosis.In October 2019 patient developed symptoms consistent with intestinal obstruction, patient was transferred to [place] to her son Dr. Garcia, and there she underwent sigmoid colon resection on November 03, 2019 and the final pathology report came back yT3, N2a and at that time her case was discussed with Dr. Garcia and his colleague Dr. Cat, medical oncologist and decided to proceed with a Avastin/Xeloda and repeat CT PET scan which Was done on March 30, 2020 which showed persistent hepatic disease with possible new lesions, MRI liver was suggested and no other distant mets seen. Subsequently patient underwent partial left hepatic lobectomy, right hepatic lobe wedge resection and wedge resection of segment 7 and 8 along with cholecystectomy on May 09, 2020 and final pathology report showed metastatic colorectal adenocarcinoma largest mets was 4 cm involving left hepatic lobe. 1.8 cm involving right hepatic lobe. 0.4 cm metastatic colorectal cancer involving segment 7. Patient was restarted on maintenance therapy with single agent oral Xeloda for day 1 through 14 q. 21 days on June 20, 2020 Plan: Discussed with patient regarding her labs white blood count 7.8 hemoglobin 12.7 hematocrit 42.5 platelets 185,000 CMP within normal limit except ALT 55 AST 70 compared to 13 and 21 respectively on June 18, 2020 e.g. prior to restarting single agent oral Xeloda Clinically, patient doing well with no new signs symptoms, tolerated first cycle of single agent oral Xeloda after hepatic mets resection well but her follow-up lab work-up showed elevated transaminases, etiology unclear, could be due to chemotherapy or other but patient denies starting any new medication or any recent infection. We will hold her next cycle of oral Xeloda for 1 week and repeat CMP if it shows resolution of mildly elevated transaminases, then will consider next cycle of oral Xeloda but with a modified dose e.g. dose reduction by 10% and then follow liver function test closely. On the other hand if there is a worsening of transaminases then will consider ultrasound liver while continue to hold chemotherapy and also consider hepatitis panel. Patient return to clinic in 1 week with CMP Signed By: Abdullahi Cat M.D. <<Signature on File>>
== END 2020-07-13 05:54 | disposition home or self-care (01) ==
LOC: ONCMED 05:55
PROVIDERS: PCP Nurse Practitioner Family; Visit Provider Internal Medicine Hematology & Oncology
DX: C18.7 Malignant neoplasm of sigmoid colon (principal); C78.7 Secondary malignant neoplasm of liver and intrahepatic bile duct; C77.2 Secondary and unspecified malignant neoplasm of intra-abdominal lymph nodes; R74.01 Elevation of levels of liver transaminase levels; D50.9 Iron deficiency anemia, unspecified; Z87.11 Personal history of peptic ulcer disease; Z79.899 Other long term (current) drug therapy; Z90.49 Acquired absence of other specified parts of digestive tract
CPT/HCPCS: 36415; 80053; 85025; 96523; 99214

== ENCOUNTER 2020-07-18 05:48 | Outpatient (CLI) | payer MEDICARE, SELFPAY ==
[2020-07-18 09:06] LABS: Alanine Aminotransferase 40 U/L (0-33); Albumin Level 4.1 g/dL (3.5-5.2); Alkaline Phosphatase 198 IU/L (35-105); Anion Gap 12.7 (5-19); Aspartate Amino Transferase 40 U/L (0-32); Blood Urea Nitrogen 14 mg/dL (8-23); Calcium 9.9 mg/dL (8.5-10.5); Carbon Dioxide 30 mmol/L (22-29); Chloride 98 mmol/L (98-107); Globulin 3.1 g/dL (1.3-4.6); Glucose 113 mg/dL (65-115); Osmolality Calculated 285 mOsm/kg (285-295); Potassium 3.7 mmol/L (3.5-5.1); Sodium 137 mmol/L (136-145); Total Bilirubin 0.4 mg/dL (0.15-1.2); Total Protein 7.2 g/dL (6.6-8.7)
--- NOTE | 2020-07-18 10:48 | ONC FU_ITS ---
Dr. Cat follow up note Patient: Elaine Garcia Unit #: [id number]: 1940 Dicatated By: Abdullahi Cat M.D.Date of Visit:Jul 18, 2020 Onc Med Follow-up/Prog Note History of Present Illness: Mrs. Byrne is a 80 -year-old female with history of chronic back pain for which she was taking ibuprofen for the last 4 months. She went to see her primary care physician for routine lab workup and follow-up and found to have severe anemia. Her CBC checked on 05/05/2019 shows white blood count 7.2 hemoglobin 6.7 crit 23.2 platelets 367,000 MCV 65.5 iron studies showed ferritin 6 iron 17 saturation for TIBC 425 and CMP was within normal range. Patient was given 2 units of packed RBCs. Patient said she was feeling weak and tired but thought it was due to old age . She had had no palpitations, no shortness of breath, no history of melena or hematochezia, no history of jaundice, no history of weight loss, no history of hemoptysis or hematemesis, no history of hematuria. No history of weight loss. No history of abdominal pain. Patient has history of peptic ulcer in the past. Last colonoscopy was done 5 years ago and at that time she was found to have some polyps, there were removed as per patient it was negative for any malignancy. Mrs Garcia underwent EGD and colonoscopy by Dr. Haas on 06/07/2019 Showed distal colon/sigmoid mass and biopsy was obtained which shows infiltrating adenocarcinoma CT scan of abdomen pelvis done on 06/08/2019 showed colonic mass involving descending and sigmoid colon with luminal narrowing measuring over length of 6.4 cm and normal size liver. There are several hypoechoic nodules within the liver. The largest and most concerning is in the inferior right lobe measuring 2.2 x 1.3 cm. There are a few additional scattered hypodensities within the remaining liver. CT PET scan done on 06/18/2019 showed hypermetabolic colonic mass in the descending colon at sigmoid with SUV of 18.7. And two hypermetabolic hepatic lesions also seen, one is in the lateral right lobe, segment 7 measuring 1.2 cm with SUV 5.3 and second one in the left lobe measuring 1.3 cm with SUV of 6.5 Next generation sequencing showed K-marti/N marti wild type,BRAF mutation not detected, MSI/MMR intact. recommended treatment with modified FOLFOX and vectibix. She began her first treatment on July 18, 2019 After 6 treatments, follow-up CT PET scan done on 10/14/2019 showed resolution of hepatic metastatic disease and significant improvement in the rectosigmoid mass now SUV 10.75 compared to 18.7 on 06/18/2019. Her last chemotherapy was on October 03, 2019 which completed 6 cycles of FOLFOX and vectibix. She presented the following week for a follow-up as she was having hypokalemia and hypomagnesemia. Her last potassium infusion was 20 mEq here on October 17, 2019. She was taking 20 mEq daily at home. Subsequently started having nausea and off and on vomiting and abdominal cramping was treated with hydration and symptomatic as outpatient on 10/27/2019 patient went to [facility] with persistent but progressive abdominal pain nausea vomiting and underwent CT scan of abdomen pelvis which showed new 0.9 cm hypodense nodule in the anterior left liver lobe. The other low-density nodules previously identified in the liver are not visualized. Calcified sclerotic lesion in the proximal sigmoid colon with distended stool filled colon proximal to the lesion with the mild wall thickening. There is a diffuse dilatation of small bowel with fecalization , measuring up to 4.2 cm. No abdominal or pelvic lymphadenopathy seen. Mrs Garcia came to office on 10/31/2019 with progressive constipation but no abdominal pain, at that time clinical impression was colon obstruction versus ileus. Her case was discussed with her son Dakota Garcia in [facility]. Mrs Garcia was sent to [facility] [place] via ambulance and underwent sigmoid colon resection on 11/03/2019. The final pathology report showed residual tumor, 3.5 cm moderately differentiated, tumor invades through muscularis propria into pericolic colorectal tissue with clear surgical margin and, lymphovascular invasion present ypT3 , 4/ 16 lymph nodes showed metastatic disease ypN2a. Patient tolerated procedure well, Case was discussed with Dr. Garcia and his colleague Dr. Cat-medical oncologist in [place] and and it was decided to start her on a Avastin/Xeloda and repeat CT PET scan after 3 or 4 cycles if it shows good response then tackle liver mets. She started on a Avastin/Xeloda on January 16, 2020. Last dose of a Avastin was given on March 21, 2020 and last dose of Xeloda was taken on April 04, 2020 . Underwent follow-up CT PET scan on March 30, 2020 and the impression was new lesions of both lobes and the liver consistent with metastatic involvement in addition to 2 prominent lesions small foci are present which may be further evaluated with MRI scan of the liver. No other findings suggestive of tumor recurrence or progression. Case was discussed with Dr. Garcia, surgeon and patient's son in [place], who has evaluated and compared latest CT PET scan with the previous one and his impression was no significant change from previous scan e.g. doubtful new lesions. Subsequently Underwent partial left hepatic lobectomy, right hepatic lobe wedge resection and wedge resection of segment 7 and 8 along with cholecystectomy on May 09, 2020 and final pathology report showed metastatic colorectal adenocarcinoma largest mets 4 cm, involving left hepatic lobe 1.8 cm invasive adenocarcinoma involving the right hepatic lobe. And 0.4 cm metastatic colorectal carcinoma involving segment 7. reStarted on maintenance therapy with single agent oral Xeloda on June 20, 2020, and plan was to continue Xeloda 850 mg/m??? p.o. twice a day/ her day 1-14 and repeat every 21 days, she completed her two weekly course on July 04, 2020 , Her follow-up labs done on July 13, 2020 showed CBC within normal limits, but CMP showed her ALT gone up to 55, AST 70, alk phos 172 compared to 13 on June 18, 2020. At that time her second cycle with oral Xeloda was put on hold for 1 week and her repeat labs done on July 18, 2020 showed improvement in her transaminases e.g. ALT gone down to 40 and AST was also 40 compared to 55/70 on July 13, 2020 although alk phos remained elevated at 198. At that time, Xeloda dose was reduced to 1000 mg p.o. twice daily for 2 weeks from 1300 and milligram p.o. twice daily which was given with her previous cycle.. Came for follow-up, denies any specific complaints, no fever chills, no nausea or vomiting, no diarrhea or constipation, no mouth sores, no abdominal pain, no skin rash, appetite is good. . Medications: Furosemide 1 Tablet (of 40 mg) Oral daily, Glimepiride 1 Tablet (of 2 mg) Oral b.i.d., LORazepam 0.5 - 1 Tablet (of 1 mg) Oral t.i.d. PRN, Losartan Potassium 1 Tablet (of 100 mg) Oral daily, metFORMIN HCl 2 Tablet (of 500 mg) Oral b.i.d., Potassium Chloride ER 2 Tablet (of 10 meq) Tablet, controlled release Oral daily, Pravastatin Sodium 1 Tablet (of 40 mg) Oral daily, Prochlorperazine Maleate 1 Tablet (of 10 mg) Oral q 4 hours PRN Allergies: Penicillin Review of Systems: Review of Systems is not available for this patient. Vital Signs: Performed on Jul 18, 2020 10:09 Height - 60.00 in Weight - 138.4 lbs (LOW) BSA - 1.60 sq.m BMI - 27.03 Temperature - 98.9 F (HIGH) Pulse - 68 /min Respiration - 18 /min BP - 146/77 mm(hg) (HIGH) O2 Sat - 97 % Pain - 0 Performance Status: 0 - Fully active, able to carry on all predisease activities without restrictions. (ECOG) Physical Examination: ENMT - No mouth sores, no thrush, no jaundice, Respiratory - Lungs are clear to auscultation, Cardiovascular - Regular rate and rhythm of heart, Abdomen - Soft, bowel sounds present, Extremities - No visible edema. Lab/Imaging: Test performed on Jul 13, 2020 08:35 Sodium 140 mmol/L Potassium 4.2 mmol/L Chloride 102 mmol/L CO2 29 mmol/L Anion Gap 13.2 BUN 11 mg/dL Creatinine 0.8 mg/dL Cr Clearance (Est) 51.9700 mL/min Glucose 104 mg/dL Osmolality - Calculated 290 mOsm/kg Calcium 10.3 mg/dL Protein, Total 7.2 g/dL Albumin 4.2 g/dL Globulin 3.0 g/dL Bilirubin, Total 0.4 mg/dL ALT (SGPT) 55 U/L AST (SGOT) 70 U/L Alkaline Phosphatase 172 IU/L WBC 7.8 10 3/uL RBC 4.65 10 6/uL HGB 12.7 g/dL HCT 42.5 % MCV 91.4 fL MCH 27.3 pg MCHC 29.9 g/dL RDW 17.7 % Platelet Count 185 10 3/cmm MPV 10.0 fL Neutrophils 5.35 10 3/uL Lymphocytes 1.4 10 3/uL Monocytes 0.7 10 3/uL Eosinophils 0.3 10 3/uL Basophils 0.1 10 3/uL Neutrophil % 68.3 % Lymphocyte % 17.7 % Monocyte % 9.3 % Eosinophil % 3.4 % Basophils % 1.0 % NRBC % 0 % Test performed on Apr 11, 2020 08:35 Ua Color Yellow Ua Appearance SL Hazy Ua Glucose 1+ Ua Bilirubin Neg Ua Ketones Negative Ua Specific Barnes 1.020 Ua Blood Neg Ua pH 5.0 Ua Protein Neg Ua Nitrites Positive Ua Leukocyte Esterase 1+ Ua Micro: WBC 25-40 /hpf Ua Micro: RBC NONE /hpf Ua Micro: Squam Epith Cells 5-10 Ua Micro: Bacteria 2+ Ua Micro: Mucous TRACE Test performed on Apr 11, 2020 08:25 CEA 18.0 ng/mL Impression: Moderately differentiated infiltrating adenocarcinoma. Status post sigmoid colon resection done on 11/03/2019 final pathology report showed 3.5 cm moderately differentiated adenocarcinoma tumor invades through muscularis propria into pericolorectal fat ypT3 and 4 out of 16 lymph node examined showed metastatic disease ypN2a MMR D intact CT scan of abdomen done on 06/08/2019 showed short segment 80 of significant circumferential mucosal thickening extending over mental 6.4 cm involving descending colon and proximal sigmoid. Moderate narrowing of the lumen. There is adjacent pericolonic stranding with a wall thickening and soft tissue infiltration. There is a small adjacent lymph node measuring 5 mm. Normal size liver. There are several hypoechoic nodules within the liver. The largest and most concerning is the inferior right lobe measuring 2.2 x 1.3 cm there are a few additional scattered hypodensities within the remaining liver. CEA checked on 06/15/2019 was 6.3 Well compensated, Microcytic hypochromic anemia due to iron deficiency Most likely due to bleeding from colon cancer CBC done on 05/05/2019 showed white blood count 7.2 hemoglobin 6.7 hematocrit 23.2 MCV 65.5 platelets 367,000 and ferritin 6, iron saturation 4%, iron 17. Status post 2 units of packed RBC with that her repeat CBC done on 05/24/2019 showed white blood count 5.5 hemoglobin 9.1 g, hematocrit 29.4 MCV 70.9 platelets 320,000 with a normal differential. colonoscopy was done 5 years ago, some polyps were removed, as per patient, there were benign. Distant past history of peptic ulcer disease. discussed with Mrs Garcia regarding her CT PET scan which confirmed hepatic metastatic disease and next initially sequencing which showed MSI/MMR intact, K-marti/ Nras wild type, BRAF no mutation detected. dicussed the role of systemic chemotherapy in stage IV colon cancer with the patient and family and earlier with her son, Dakota Garcia MD who is a surgeon in [facility]. Based on next gene sequencing, it was recommended that she proceed with panitumumab 6 mg/kg every 2 weeks along with FOLFOX. Considering her age and this stage IV disease, there was consideration for dose modification. She did obtain Port-A-Cath placement to facilitate chemotherapy. The plan was to give her 6 cycles of this regimen followed by CT PET scan to assess the response. Her last chemotherapy was on 10/03/2019 which completed 6 cycles of chemotherapy. Follow-up CT PET scan done after 6 cycles of hemotherapy with FOLFOX/panitumumab showed excellent response with resolution of hepatic metastatic disease and significant improvement in the primary in the rectosigmoid colon: SUV 10.75 compared to 18.7 at the time of diagnosis.In October 2019 patient developed symptoms consistent with intestinal obstruction, patient was transferred to [place] to her son Megan Sandovalramses, and there she underwent sigmoid colon resection on November 03, 2019 and the final pathology report came back yT3, N2a and at that time her case was discussed with Dr. Garcia and his colleague Dr. Cat, medical oncologist and decided to proceed with a Avastin/Xeloda and repeat CT PET scan which Was done on March 30, 2020 which showed persistent hepatic disease with possible new lesions, MRI liver was suggested and no other distant mets seen. Subsequently patient underwent partial left hepatic lobectomy, right hepatic lobe wedge resection and wedge resection of segment 7 and 8 along with cholecystectomy on May 09, 2020 and final pathology report showed metastatic colorectal adenocarcinoma largest mets was 4 cm involving left hepatic lobe. 1.8 cm involving right hepatic lobe. 0.4 cm metastatic colorectal cancer involving segment 7. Patient was restarted on maintenance therapy with single agent oral Xeloda for day 1 through 14 q. 21 days on June 20, 2020 Plan: Discussed with patient regarding her labs, CMP which showed improvement in her transaminases now AST and ALT down to 40/40 compared to 55/70 on July 13, 2020, there was after first cycle of oral Xeloda after her hepatic mets resection. But alk phos continued to be elevated at 198, with a normal bilirubin Clinically, patient is doing well with no new signs symptoms, as her follow-up CMP showed improvement in her transaminases, will consider oral Xeloda dose reduction by 20% and then monitor LFTs, if continues to improve then will titrate up her oral Xeloda by 10% while monitoring her LFTs. So, will start second cycle after liver mets resection with oral Xeloda, 1000 mg p.o. twice daily instead of 1300 mg p.o. twice daily for 2 weeks and then repeat CBC CMP week after. Return to clinic in 3 weeks with CBC CMP. Patient was advised in case she has any symptoms like abdominal pain, jaundice, mouth sores or skin rash she need to call us otherwise we will see her back in 3 weeks. Signed By: Abdullahi Cat M.D. <<Signature on File>>
== END 2020-07-18 05:49 | disposition home or self-care (01) ==
LOC: ONCMED 05:49
PROVIDERS: PCP Nurse Practitioner Family; Visit Provider Internal Medicine Hematology & Oncology
DX: C18.8 Malignant neoplasm of overlapping sites of colon (principal); C78.7 Secondary malignant neoplasm of liver and intrahepatic bile duct; Z23 Encounter for immunization; Z45.2 Encounter for adjustment and management of vascular access device
CPT/HCPCS: 80053; 90471; 90686; 96523; 99214

== ENCOUNTER 2020-07-25 06:05 | Outpatient (CLI) | payer MEDICARE, SELFPAY ==
[2020-07-25] MEDS: alteplase 1 mg/mL SDV 2 mL 2 MG IV ×2 (09:20→10:35)
[2020-07-25 09:28] LABS: Basophils # 0.1 10^3/uL (0.0-0.1); Basophils % 0.7 %; Eosinophils # 0.1 10^3/uL (0.0-0.8); Eosinophils % 1.8 %; Hemoglobin 12.4 g/dL (11.5-15.3); Lymphocytes # 1.1 10^3/uL (0.8-4.8); Lymphocytes % 14.9 %; Mean Corpuscular Hemoglobin 27.4 pg (28.0-34.0); Mean Corpuscular Volume 88.3 fL (81-99); Mean Platelet Volume 10.7 fL (7.4-10.4); Monocytes # 0.6 10^3/uL (0.2-0.9); Monocytes % 7.6 %; Neutrophils # 5.47 10^3/uL (1.8-7.7); Neutrophils % 74.6 %; Nucleated Red Blood Cells % 0 %; Platelet Count 158 10^3/cmm (130-400); Red Blood Count 4.53 10^6/uL (4.1-5.3); Red Cell Distribution Width 17.9 % (12.1-15.1); White Blood Count 7.3 10^3/uL (4.0-10.0)
[2020-07-25 09:50] LABS: Alanine Aminotransferase 16 U/L (0-33); Alkaline Phosphatase 206 IU/L (35-105); Anion Gap 13.2 (5-19); Aspartate Amino Transferase 26 U/L (0-32); Blood Urea Nitrogen 16 mg/dL (8-23); Calcium 10.1 mg/dL (8.5-10.5); Carbon Dioxide 30 mmol/L (22-29); Chloride 98 mmol/L (98-107); Glucose 213 mg/dL (65-115); Osmolality Calculated 294 mOsm/kg (285-295); Potassium 3.2 mmol/L (3.5-5.1); Sodium 138 mmol/L (136-145); Total Bilirubin 0.4 mg/dL (0.15-1.2)
--- NOTE | 2020-07-31 22:16 | ONC FU_ITS ---
[facility] Patient Note Patient: Elaine Garcia Unit #: [id number]: 1940 Dictated By: Agnes WestfallDate of Visit: Jul 25, 2020 Onc MED Follow-Up/Prog Note Chief Complaint: Iron deficiency anemia Adenocarcinoma distal/sigmoid colon with liver involvement History of Present Illness: Mrs. Garcia is a 80 -year-old female with history of chronic back pain for which she was taking ibuprofen for the last 4 months. She went to see her primary care physician for routine lab workup and follow-up and found to have severe anemia. Her CBC checked on 05/05/2019 shows white blood count 7.2 hemoglobin 6.7 crit 23.2 platelets 367,000 MCV 65.5 iron studies showed ferritin 6 iron 17 saturation for TIBC 425 and CMP was within normal range. Patient was given 2 units of packed RBCs. Patient said she was feeling weak and tired but thought it was due to old age . She had had no palpitations, no shortness of breath, no history of melena or hematochezia, no history of jaundice, no history of weight loss, no history of hemoptysis or hematemesis, no history of hematuria. No history of weight loss. No history of abdominal pain. Patient has history of peptic ulcer in the past. Last colonoscopy was done 5 years ago and at that time she was found to have some polyps, there were removed as per patient it was negative for any malignancy. Mrs Garcia underwent EGD and colonoscopy by Dr. Haas on 06/07/2019 Showed distal colon/sigmoid mass and biopsy was obtained which shows infiltrating adenocarcinoma CT scan of abdomen pelvis done on 06/08/2019 showed colonic mass involving descending and sigmoid colon with luminal narrowing measuring over length of 6.4 cm and normal size liver. There are several hypoechoic nodules within the liver. The largest and most concerning is in the inferior right lobe measuring 2.2 x 1.3 cm. There are a few additional scattered hypodensities within the remaining liver. CT PET scan done on 06/18/2019 showed hypermetabolic colonic mass in the descending colon at sigmoid with SUV of 18.7. And two hypermetabolic hepatic lesions also seen, one is in the lateral right lobe, segment 7 measuring 1.2 cm with SUV 5.3 and second one in the left lobe measuring 1.3 cm with SUV of 6.5 Next generation sequencing showed K-marti/N marti wild type,BRAF mutation not detected, MSI/MMR intact. recommended treatment with modified FOLFOX and vectibix. She began her first treatment on July 18, 2019 After 6 treatments, follow-up CT PET scan done on 10/14/2019 showed resolution of hepatic metastatic disease and significant improvement in the rectosigmoid mass now SUV 10.75 compared to 18.7 on 06/18/2019. Her last chemotherapy was on October 03, 2019 which completed 6 cycles of FOLFOX and vectibix. She presented the following week for a follow-up as she was having hypokalemia and hypomagnesemia. Her last potassium infusion was 20 mEq here on October 17, 2019. She was taking 20 mEq daily at home. Subsequently started having nausea and off and on vomiting and abdominal cramping was treated with hydration and symptomatic as outpatient on 10/27/2019 patient went to [facility] with persistent but progressive abdominal pain nausea vomiting and underwent CT scan of abdomen pelvis which showed new 0.9 cm hypodense nodule in the anterior left liver lobe. The other low-density nodules previously identified in the liver are not visualized. Calcified sclerotic lesion in the proximal sigmoid colon with distended stool filled colon proximal to the lesion with the mild wall thickening. There is a diffuse dilatation of small bowel with fecalization , measuring up to 4.2 cm. No abdominal or pelvic lymphadenopathy seen. Mrs Garcia came to office on 10/31/2019 with progressive constipation but no abdominal pain, at that time clinical impression was colon obstruction versus ileus. Her case was discussed with her son Dakota Garcia in [facility]. Mrs Garcia was sent to [facility] [place] via ambulance and underwent sigmoid colon resection on 11/03/2019. The final pathology report showed residual tumor, 3.5 cm moderately differentiated, tumor invades through muscularis propria into pericolic colorectal tissue with clear surgical margin and, lymphovascular invasion present ypT3 , 4/ 16 lymph nodes showed metastatic disease ypN2a. Patient tolerated procedure well, Case was discussed with Dr. Garcia and his colleague Dr. Cat-medical oncologist in [place] and and it was decided to start her on a Avastin/Xeloda and repeat CT PET scan after 3 or 4 cycles if it shows good response then tackle liver mets. She started on a Avastin/Xeloda on January 16, 2020. Last dose of a Avastin was given on March 21, 2020 and last dose of Xeloda was taken on April 04, 2020 Mrs Garcia underwent follow-up CT PET scan on March 30, 2020 and the impression was new lesions of both lobes and the liver consistent with metastatic involvement in addition to 2 prominent lesions small foci are present which may be further evaluated with MRI scan of the liver. No other findings suggestive of tumor recurrence or progression. Case was discussed with Dr. Garcia, surgeon and patient's son in [place], who has evaluated and compared latest CT PET scan with the previous one and his impression was no significant change from previous scan e.g. doubtful new lesions. Subsequently she underwent partial left hepatic lobectomy, right hepatic lobe wedge resection and wedge resection of segment 7 and 8 along with cholecystectomy on May 09, 2020 and final pathology report showed metastatic colorectal adenocarcinoma largest mets 4 cm, involving left hepatic lobe; 1.8 cm invasive adenocarcinoma involving the right hepatic lobe. And 0.4 cm metastatic colorectal carcinoma involving segment 7. She started on maintenance therapy with single agent oral Xeloda on June 20, 2020, and plan was to continue Xeloda 850 mg/m??? p.o. twice a day/ her day 1-14 and repeat every 21 days, she completed her two weekly course on July 04, 2020. Her follow-up labs done on July 13, 2020 showed CBC within normal limits, but CMP showed her ALT gone up to 55, AST 70, alk phos 172 compared to 13/156 on June 18, 2020. At that time her second cycle with oral Xeloda was put on hold for 1 week and her repeat labs done on July 18, 2020 showed improvement in her transaminases e.g. ALT gone down to 40 and AST was also 40 compared to 55/70 on July 13, 2020 although alk phos remained elevated at 198. At that time, Xeloda dose was reduced to 1000 mg p.o. twice daily for 2 weeks from 1300 mg p.o. twice daily which was given with her previous cycle. Mrs. Garcia had follow-up with Dr. Cat on 07/18/2020. After improvement of her LFTs, it was elected to pursue her second cycle of capecitabine but at a lower dose of 1000 mg p.o. twice daily. She also received her flu vaccine on 07/18/2020. She is here today to see how well she is tolerating the reduced dose. She states she did resume them capecitabine on 07/18/2020. She states she has tolerated it well. Her energy is good. Her appetite is good. She denies any diarrhea or constipation. She denies any nausea or vomiting. She denies mouth sores, sore throat or difficulty swallowing. She is had no hand-foot syndrome. She states she feels good overall. Her ECOG is 1. Past Medical History: Hypertension Type II diabetes Past Surgical History: Breast biopsy Hysterectomy Flu vaccine in 2019 Cholecystectomy in 2020 Live ablation-Dr Zhang[place] in 2020 Partial left hepatic lobectomy segments 2, 3, and 4B-Dr Zhang- [place] in 2019 Right hepatic wedge resection with segment 5 and the anterior portion of segment 6-Dr Zhang [place] in 2019 Wedge resection segments 7 & 8 (liver)-Dr Zhang[place] in 2020 Sigmoid colon resection with primary anastomosis???Dr. Zhang, [facility] in 2019 Left subclavian venous access device-Dr Haas ([facility]) in 2019 Allergies: Penicillin Medications: Furosemide 1 Tablet (of 40 mg) Oral daily Glimepiride 1 Tablet (of 2 mg) Oral b.i.d. LORazepam 0.5 - 1 Tablet (of 1 mg) Oral t.i.d. PRN Losartan Potassium 1 Tablet (of 100 mg) Oral daily metFORMIN HCl 2 Tablet (of 500 mg) Oral b.i.d. Potassium Chloride ER 2 Tablet (of 10 meq) Tablet, controlled release Oral daily Pravastatin Sodium 1 Tablet (of 40 mg) Oral daily Prochlorperazine Maleate 1 Tablet (of 10 mg) Oral q 4 hours PRN Family History: Ms. Garcia's mother at age 85: old age. Ms. Garcia's father at age 70: myocardial infaraction. Social History: Ms. Garcia is and she is retired. Ms. Garcia has never smoked. She has no history of drinking. Review Of Symptoms: Constitutional Denies fevers, chills, night sweats, excessive fatigue or weight loss. Allergic/Immunologic No reactions. Eyes Denies significant visual changes. No diplopia. No amaurosis. ENMT Denies changes in hearing, sore throat, mouth sores, difficulty or changes in swallowing ability, and/or sinus drainage. Hematologic/Lymphatic Denies easy bruising or bleeding. The patient denies any tender or palpable lymph nodes. Respiratory Denies dyspnea on exertion, chest pain, cough or hemoptysis. Denies orthopnea. Cardiovascular Denies anginal chest pain, palpitations or orthopnea. Gastrointestinal Denies nausea, vomiting, diarrhea, GI bleeding, or constipation. Denies change in bowel habits and/or stool color, no heartburn or early satiety. No diarrhea or nausea/vomiting. Genitourinary (F) No hematuria, hesitancy, incontinence, vaginal bleeding, discharge or other problems with urination. Musculoskeletal Denies joint pain, swelling or redness. No decreased range of motion. Integumentary Denies chronic rashes, inflammation, ulcerations or skin changes. Neurologic Denies headache, blurred vision, and no areas of focal weakness or numbness. Normal gait-no longer using walker or cane. No sensory problems today. Psychiatric Denies insomnia, depression, heather or mood swings. Vital Signs: Performed on Jul 25, 2020 10:58 Height - 60.00 in Weight - 140.4 lbs (HIGH) BSA - 1.61 sq.m BMI - 27.42 Temperature - 98.6 F Pulse - 69 /min Respiration - 24 /min BP - 147/77 mm(hg) (HIGH) O2 Sat - 96 % Pain - 0,1 - No physically strenuous activity, but ambulatory and able to carry out light or sedentary work (e.g. office work, light house work). (ECOG) Physical Examination: Constitutional Alert, oriented, no acute distress. Skin pink, warm and dry. Head Normocephalic; atraumatic. Eyes Conjunctivae and sclerae are clear and without icterus. Pupils are reactive and equal. Neck Supple without masses or thyromegaly. No jugular venous distension. Hematologic/Lymphatic No petechiae or purpura. Respiratory Lungs are clear to auscultation without rhonchi or wheezing. Cardiovascular Regular rate and rhythm of heart without murmurs,clicks, gallops or rubs. Chest Left venous access device insertion unremarkable. Abdomen Non-tender, non-distended, no masses, ascites. Back/Spine Non-tender to palpation. Extremities No visible deformities, no cyanosis, clubbing or edema. Musculoskeletal No tenderness or swelling, normal range of motion without obvious weakness. Integumentary No rashes or lesions. Neurologic No sensory or motor deficits, normal cerebellar function, normal for her/assisted gait. Psychiatric Alert and oriented times three. Coherent speech. Verbalizes understanding of our discussions today. Laboratory:Test performed on Jul 25, 2020 09:15 Sodium 138 mmol/L Potassium 3.2 mmol/L Chloride 98 mmol/L CO2 30 mmol/L Anion Gap 13.2 BUN 16 mg/dL Creatinine 0.7 mg/dL Cr Clearance (Est) 59.3900 mL/min Glucose 213 mg/dL Osmolality - Calculated 294 mOsm/kg Calcium 10.1 mg/dL Protein, Total 7.0 g/dL Albumin 4.0 g/dL Globulin 3.0 g/dL Bilirubin, Total 0.4 mg/dL ALT (SGPT) 16 U/L AST (SGOT) 26 U/L Alkaline Phosphatase 206 IU/L WBC 7.3 10 3/uL RBC 4.53 10 6/uL HGB 12.4 g/dL HCT 40.0 % MCV 88.3 fL MCH 27.4 pg MCHC 31.0 g/dL RDW 17.9 % Platelet Count 158 10 3/cmm MPV 10.7 fL Neutrophils 5.47 10 3/uL Lymphocytes 1.1 10 3/uL Monocytes 0.6 10 3/uL Eosinophils 0.1 10 3/uL Basophils 0.1 10 3/uL Neutrophil % 74.6 % Lymphocyte % 14.9 % Monocyte % 7.6 % Eosinophil % 1.8 % Basophils % 0.7 % NRBC % 0 % Test performed on Apr 11, 2020 08:35 Ua Color Yellow Ua Appearance SL Hazy Ua Glucose 1+ Ua Bilirubin Neg Ua Ketones Negative Ua Specific [place] 1.020 Ua Blood Neg Ua pH 5.0 Ua Protein Neg Ua Nitrites Positive Ua Leukocyte Esterase 1+ Ua Micro: WBC 25-40 /hpf Ua Micro: RBC NONE /hpf Ua Micro: Squam Epith Cells 5-10 Ua Micro: Bacteria 2+ Ua Micro: Mucous TRACE Test performed on Apr 11, 2020 08:25 CEA 18.0 ng/mL Impression: Moderately differentiated infiltrating adenocarcinoma. Status post sigmoid colon resection done on 11/03/2019 final pathology report showed 3.5 cm moderately differentiated adenocarcinoma tumor invades through muscularis propria into pericolorectal fat ypT3 and 4 out of 16 lymph node examined showed metastatic disease ypN2a MMR D intact CT scan of abdomen done on 06/08/2019 showed short segment 80 of significant circumferential mucosal thickening extending over mental 6.4 cm involving descending colon and proximal sigmoid. Moderate narrowing of the lumen. There is adjacent pericolonic stranding with a wall thickening and soft tissue infiltration. There is a small adjacent lymph node measuring 5 mm. Normal size liver. There are several hypoechoic nodules within the liver. The largest and most concerning is the inferior right lobe measuring 2.2 x 1.3 cm there are a few additional scattered hypodensities within the remaining liver. CEA checked on 06/15/2019 was 6.3 Well compensated, Microcytic hypochromic anemia due to iron deficiency Most likely due to bleeding from colon cancer CBC done on 05/05/2019 showed white blood count 7.2 hemoglobin 6.7 hematocrit 23.2 MCV 65.5 platelets 367,000 and ferritin 6, iron saturation 4%, iron 17. Status post 2 units of packed RBC with that her repeat CBC done on 05/24/2019 showed white blood count 5.5 hemoglobin 9.1 g, hematocrit 29.4 MCV 70.9 platelets 320,000 with a normal differential. colonoscopy was done 5 years ago, some polyps were removed, as per patient, there were benign. Distant past history of peptic ulcer disease. discussed with Mrs Garcia regarding her CT PET scan which confirmed hepatic metastatic disease and next initially sequencing which showed MSI/MMR intact, K-marti/ Nras wild type, BRAF no mutation detected. dicussed the role of systemic chemotherapy in stage IV colon cancer with the patient and family and earlier with her son, Dakota Garcia MD who is a surgeon in [facility]. Based on next gene sequencing, it was recommended that she proceed with panitumumab 6 mg/kg every 2 weeks along with FOLFOX. Considering her age and this stage IV disease, there was consideration for dose modification. She did obtain Port-A-Cath placement to facilitate chemotherapy. The plan was to give her 6 cycles of this regimen followed by CT PET scan to assess the response. Her last chemotherapy was on 10/03/2019 which completed 6 cycles of chemotherapy. Follow-up CT PET scan done after 6 cycles of hemotherapy with FOLFOX/panitumumab showed excellent response with resolution of hepatic metastatic disease and significant improvement in the primary in the rectosigmoid colon: SUV 10.75 compared to 18.7 at the time of diagnosis.In October 2019 patient developed symptoms consistent with intestinal obstruction, patient was transferred to [place] to her son Dr. Garcia, and there she underwent sigmoid colon resection on November 03, 2019 and the final pathology report came back yT3, N2a and at that time her case was discussed with Dr. Garcia and his colleague Dr. Cat, medical oncologist and decided to proceed with a Avastin/Xeloda and repeat CT PET scan which Was done on March 30, 2020 which showed persistent hepatic disease with possible new lesions, MRI liver was suggested and no other distant mets seen. Subsequently patient underwent partial left hepatic lobectomy, right hepatic lobe wedge resection and wedge resection of segment 7 and 8 along with cholecystectomy on May 09, 2020 and final pathology report showed metastatic colorectal adenocarcinoma largest mets was 4 cm involving left hepatic lobe. 1.8 cm involving right hepatic lobe. 0.4 cm metastatic colorectal cancer involving segment 7. Patient was restarted on maintenance therapy with single agent oral Xeloda for day 1 through 14 q. 21 days on June 20, 2020. With cycle one of the Xeloda she did experience elevation of her ALT which elevated to 55 (normal is 0-30) AST was 70 with normal being 0-32. Her alk phos was 172 normals 35-1 05. She was evaluated by Dr. Cat on July 18 and was elected to reduce her Xeloda 2000 mg p.o. twice daily for 14 days and she was to resume that day. Her ALT at that time was 40 AST was 40 and alk phos was 198. Plan: 1. Continue with Xeloda (capecitabine) 1000 mg p.o. twice daily. Today is cycle 2-day 8. She does take the Xeloda for 14 days and then rest for 7. 2. Compazine lorazepam as needed for antiemetics. 3. Labs from 07/25/2020 were reviewed in detail discussed with and Mrs. Garcia and a copy was given to them. WBC 7.3, hemoglobin 12.4, platelets 158,000 ANC 5470. Potassium 3.2 creatinine was 0.7 random glucose was 213 (she states she ate a honey bun prior to her lab draw). ALT is 16 AST is 26 alk phos is 206. She has had Port-A-Cath access today but we have been unable to obtain blood return. The Port-A-Cath flushes well we does not get a blood return. It is possible that the alk phos may be elevated due to the Port-A-Cath access. She denies any bone pain. 4. We will plan to see her back in 3 weeks with CBC CMP and CEA her last CEA was April 11, 2020 which was reported at 18. I have opted to see her back at the 3-week follow-up so that we can see her prior to her starting cycle 3 Xeloda so that we may titrate her dose up if her LFTs continue to be normal. 5. Mrs. Garcia was instructed to contact us in the interim should questions or problems arise. ADDENDUM: In regards to her potassium of 3.2. I have encouraged her to take her Lasix just as needed for edema. I have also asked her to go ahead and take a potassium tablet daily for the next 4 to 5 days she does have some on hand as she has a prescription for 10 mEq with previous instructions to take 2 twice daily she is currently not doing this. We will recheck her potassium and I have requested a magnesium with that lab draw at her follow-up visit. Signed By: Agnes Westfall-, SALVADOR Cat MD <<Signature on File>>
== END 2020-07-25 06:06 | disposition home or self-care (01) ==
LOC: ONCMED 06:06
PROVIDERS: PCP Nurse Practitioner Family; Visit Provider Nurse Practitioner
DX: Z51.11 Encounter for antineoplastic chemotherapy (principal); C18.8 Malignant neoplasm of overlapping sites of colon; C78.7 Secondary malignant neoplasm of liver and intrahepatic bile duct; C77.2 Secondary and unspecified malignant neoplasm of intra-abdominal lymph nodes; D50.9 Iron deficiency anemia, unspecified; E87.6 Hypokalemia; Z86.010 Personal history of colon polyps; Z87.11 Personal history of peptic ulcer disease; Z79.899 Other long term (current) drug therapy; Z90.49 Acquired absence of other specified parts of digestive tract
CPT/HCPCS: 36415; 36593; 80053; 85025; 96374; 96376; 99214; J2997

== ENCOUNTER 2020-08-15 11:10 | Emergency (ER) | payer MEDICARE, SELFPAY ==
[2020-08-15 11:32] VITALS: BP 123/76; PULSE 99; RESP 16; TEMP 36.8; O2SAT 96; BMI 26.4
--- NOTE | 2020-08-15 12:30 | XR_ITS ---
WS: [id number] Portable AP upright chest, 08/15/2020 Clinical Data: fever. Comparison: PA and lateral chest, 01/13/2017. Findings: No nodules, masses or effusions are seen. The heart is normal. The pulmonary vascularity is not increased. No pneumonia or pneumothorax is seen. The aortic arch and descending aorta are tortuo us. The infusion catheter remains in good position ending in the superior vena cava. There is a dextr oscoliosis of the thoracic spine. XR/XR chest 1V portable [id number] Impression: Atherosclerosis.
--- NOTE | 2020-08-15 12:33 | ED_ITS ---
HPI - Fever General: Chief Complaint: Fever Stated Complaint: fever Time Seen by Provider: 08/15/20 11:53 Source: patient and family Mode of arrival: ambulatory Limitations: no limitations History of Present Illness: HPI Narrative: Patient is an 80-year-old female with a history of metastatic colon cancer who is on chemotherapy. She has had liver metastases and had a partial liver resection for this. She has had a fever for about 2 days intermittently and apparently has been feeling weak. Her son therefore called her oncologist and he was worried about an infectious illness such as Covid and so advised that she come to the emergency room to be evaluated for these. Oncologist is not worried about her oncologic status, just thinks she needs to be tested for Covid or other infectious illness MD elicited complaint: fever and malaise Onset (ago): day(s) (2) Exacerbating factors: nothing Relieving factors: nothing Associated symptoms: Deny abdominal pain, flank pain, chills, chest pain, confusion, cough, diarrhea, dysuria, extremity pain, headache(s), myalgias, nasal congestion, nausea, night sweats, rash, rhinorrhea, short of breath, sinus pain, stiffness, sore throat, vaginal discharge, vomiting, weight loss or other Treatments prior to arrival fever: none Review of Systems General: Reports: 10 or more systems reviewed and unremarkable except in HPI and below Const: Denies: chills or night sweats Eyes: Denies: change in vision or blurry vision ENMT: Denies: nasal congestion or sinus pain Card: Denies: chest pain Resp: Denies: dyspnea, productive cough or non-productive cough GI: Denies: abdominal pain, nausea, vomiting or diarrhea : Denies: flank pain, dysuria or vaginal discharge Musc: Denies: extremity pain Skin/Breast: Denies: rash, pruritus or erythema Neuro: Denies: headache(s) or confusion Endo: Denies: polyuria, polydipsia or tired all the time PFSH ED PFSH: Medical History Cancer Diabetes Hypertension Surgical History H/O breast biopsy H/O: hysterectomy Social History Smoking and tobacco status: never smoked Second hand smoke exposure: No Alcohol intake: never Lives independently: Yes Household members: spouse Housing: House Marital status: Current occupational status: retired Current occupational exposures/hazards: No History of recent travel: No Current gender identity: Female Physical Exam Const: COMMON NORMALS: no acute distress, average body habitus, patient oriented x3, no limitations, healthy appearing, alert and well nourished Eye: COMMON NORMALS: Equal, round and reactive pupils present, EOMs intact bilaterally, conjunctivae normal and no scleral icterus CONJUNCTIVA: Yes conjunctivae normal PUPIL: Yes Equal, round and reactive pupils present Neck/C-Spine: COMMON NORMALS: no meningeal signs and no JVD Resp: COMMON NORMALS: normal respiratory effort, No retractions, No use of accessory muscles, clear to auscultation bilaterally and percussion normal AUSCULTATION: clear to auscultation bilaterally PERCUSSION: percussion normal Cardio: COMMON NORMALS: no JVD, regular rate, regular rhythm, S1 normal heart sound present, S2 normal heart sound present, No gallops present (Cardio), No clicks present (Cardio), No murmurs present (Cardio), No rub (Cardio) and Peripheral pulses 2+ throughout RATE: regular rate RHYTHM: regular rhythm HEART SOUNDS: S1 normal heart sound present and S2 normal heart sound present PERIPHERAL PULSES: Peripheral pulses 2+ throughout GI: COMMON NORMALS: Normal to inspection, nondistended, normoactive bowel sounds present, Soft to palpation, non-tender, No hepatosplenomegaly present, no masses and no bruits PALPATION: Yes Soft to palpation and Yes No hepatosplenomegaly present Extremity: COMMON NORMALS: normal to inspection, full ROM, capillary refill normal, no calf tenderness and no pedal edema Neuro: COMMON NORMALS: patient oriented x3 SENSORIUM/ORIENTATION: Yes alert MENINGEAL SIGNS: Yes no meningeal signs Skin: COMMON NORMALS: no rashes or lesions noted, no wounds, turgor normal, no jaundice, no petechiae and no mottling GENERAL SKIN EXAM: no rashes or lesions noted and turgor normal Course Reevaluation(s): Reevaluation #1: Discussed her lab and imaging findings with her, she has a UTI. She tested negative for COVID-19. Fever is likely as a result of urinary tract infection. She will be discharged home with a prescription for an oral antibiotic. She was given a dose of intravenous ciprofloxacin in the emergency department. She voiced understanding and is in agreement with the plan. Time: 16:36 Vital Signs: Vital signs: Vital Signs Temperature 98.2 F 08/15/20 11:32 Pulse Rate 74 08/15/20 15:18 Respiratory Rate 16 08/15/20 14:03 Blood Pressure 122/57 08/15/20 15:18 Pulse Oximetry 95 08/15/20 15:18 MDM - Fever MDM Narrative: Medical decision making narrative: 80-year-old female patient with a history of metastatic colon cancer presents to the emergency department with fever. She has also been feeling a little weak. Evaluation in the emergency department is consistent with a UTI. She was given a dose of IV ciprofloxacin and discharged home on oral ciprofloxacin. Differential Diagnosis: Differential diagnosis: Likely abdominal pain, acute appendicitis, diverticulitis and small bowel obstruction Medical Records: Attestation: I reviewed the patient's medical records. Lab Data: Attestation: I reviewed the patient's lab results. Labs: Lab Results 08/15/20 08/15/20 08/15/20 Range/Units 12:42 13:15 13:15 WBC 10.0 (4.0-10.0) 10^3/ uL RBC 4.73 (4.1-5.3) 10^6/u L Hgb 12.8 (11.5-15.3) g/dL Hct 40.0 (37.0-47.0) % MCV 84.6 (81-99) fL MCH 27.1 L (28.0-34.0) pg MCHC 32.0 (30.0-36.0) g/dL RDW 19.2 H (12.1-15.1) % Plt Count 147 (130-400) 10^3/c mm MPV 10.7 H (7.4-10.4) fL Neut % (Auto) 81.0 % Lymph % (Auto) 7.7 % [place] % (Auto) 10.0 % Eos % (Auto) 0.4 % Baso % (Auto) 0.4 % Neut # (Auto) 8.11 H (1.8-7.7) 10^3/u L Lymph # (Auto) 0.8 (0.8-4.8) 10^3/u L [place] # (Auto) 1.0 H (0.2-0.9) 10^3/u L Eos # (Auto) 0.0 (0.0-0.8) 10^3/u L Baso # (Auto) 0.0 (0.0-0.1) 10^3/u L Nucleated RBC % (a uto) 0 % Nucleated RBCs # 0.0 /100WBC Sodium 139 (136-145) mmol/L Potassium 3.8 (3.5-5.1) mmol/L Chloride 98 (98-107) mmol/L Carbon Dioxide 28 (22-29) mmol/L Anion Gap 16.8 (5-19) BUN 14 (8-23) mg/dL Creatinine 0.7 (0.5-0.9) mg/dL GFR Calculation Not Reportable Glucose 186 H (65-115) mg/dL Calculated Osmolal ity 293 (285-295) mOsm/k g Lactate (0.5-2.2) mmol/L Calcium 9.7 (8.5-10.5) mg/dL Total Bilirubin 1.0 (0.15-1.2) mg/dL AST 75 H (0-32) U/L ALT 37 H (0-33) U/L Alkaline Phosphata se 317 H (35-105) IU/L C-Reactive Protein 182.7 H (0.0-4.9) mg/L Total Protein 7.1 (6.6-8.7) g/dL Albumin 3.7 (3.5-5.2) g/dL Globulin 3.4 (1.3-4.6) g/dL Urine Color Dark yellow (Yellow) Urine Appearance Hazy A (CLEAR) Urine pH 6 (5-7) Ur Specific Gravit y 1.015 (1.005-1.030) Urine Protein Trace (Negative) Urine Glucose (UA) 4+ H (Normal) Urine Ketones 1+ H (Negative) Urine Blood 2+ H (Negative) Urine Nitrate Positive H (Negative) Urine Bilirubin 1+ H (Negative) Urine Urobilinogen 4 H (Negative) mg/dL Ur Leukocyte Lilian ase 1+ H (Negative) Urine RBC None (0-2) /hpf Urine WBC 25-40 H (0-5) /hpf Ur Squamous Epith Cells 25-40 H (0-5) /hpf Amorphous Sediment Not Reportable Urine Bacteria 2+ H (NONE) /hpf Influenza Type A A g (Negative) Influenza Type B A g (Negative) SARS-CoV-2 Ag (Rap id) 08/15/20 08/15/20 08/15/20 Range/Units 13:15 13:15 13:15 WBC (4.0-10.0) 10^3/ uL RBC (4.1-5.3) 10^6/u L Hgb (11.5-15.3) g/dL Hct (37.0-47.0) % MCV (81-99) fL MCH (28.0-34.0) pg MCHC (30.0-36.0) g/dL RDW (12.1-15.1) % Plt Count (130-400) 10^3/c mm MPV (7.4-10.4) fL Neut % (Auto) % Lymph % (Auto) % [place] % (Auto) % Eos % (Auto) % Baso % (Auto) % Neut # (Auto) (1.8-7.7) 10^3/u L Lymph # (Auto) (0.8-4.8) 10^3/u L [place] # (Auto) (0.2-0.9) 10^3/u L Eos # (Auto) (0.0-0.8) 10^3/u L Baso # (Auto) (0.0-0.1) 10^3/u L Nucleated RBC % (a uto) % Nucleated RBCs # /100WBC Sodium (136-145) mmol/L Potassium (3.5-5.1) mmol/L Chloride (98-107) mmol/L Carbon Dioxide (22-29) mmol/L Anion Gap (5-19) BUN (8-23) mg/dL Creatinine (0.5-0.9) mg/dL GFR Calculation Glucose (65-115) mg/dL Calculated Osmolal ity (285-295) mOsm/k g Lactate 3.4 H (0.5-2.2) mmol/L Calcium (8.5-10.5) mg/dL Total Bilirubin (0.15-1.2) mg/dL AST (0-32) U/L ALT (0-33) U/L Alkaline Phosphata se (35-105) IU/L C-Reactive Protein (0.0-4.9) mg/L Total Protein (6.6-8.7) g/dL Albumin (3.5-5.2) g/dL Globulin (1.3-4.6) g/dL Urine Color (Yellow) Urine Appearance (CLEAR) Urine pH (5-7) Ur Specific Gravit y (1.005-1.030) Urine Protein (Negative) Urine Glucose (UA) (Normal) Urine Ketones (Negative) Urine Blood (Negative) Urine Nitrate (Negative) Urine Bilirubin (Negative) Urine Urobilinogen (Negative) mg/dL Ur Leukocyte Lilian ase (Negative) Urine RBC (0-2) /hpf Urine WBC (0-5) /hpf Ur Squamous Epith Cells (0-5) /hpf Amorphous Sediment Urine Bacteria (NONE) /hpf Influenza Type A A g Negative (Negative) Influenza Type B A g Negative (Negative) SARS-CoV-2 Ag (Rap id) Cancelled 08/15/20 08/15/20 Range/Units 14:00 15:23 WBC (4.0-10.0) 10^3/ uL RBC (4.1-5.3) 10^6/u L Hgb (11.5-15.3) g/dL Hct (37.0-47.0) % MCV (81-99) fL MCH (28.0-34.0) pg MCHC (30.0-36.0) g/dL RDW (12.1-15.1) % Plt Count (130-400) 10^3/c mm MPV (7.4-10.4) fL Neut % (Auto) % Lymph % (Auto) % [place] % (Auto) % Eos % (Auto) % Baso % (Auto) % Neut # (Auto) (1.8-7.7) 10^3/u L Lymph # (Auto) (0.8-4.8) 10^3/u L [place] # (Auto) (0.2-0.9) 10^3/u L Eos # (Auto) (0.0-0.8) 10^3/u L Baso # (Auto) (0.0-0.1) 10^3/u L Nucleated RBC % (a uto) % Nucleated RBCs # /100WBC Sodium (136-145) mmol/L Potassium (3.5-5.1) mmol/L Chloride (98-107) mmol/L Carbon Dioxide (22-29) mmol/L Anion Gap (5-19) BUN (8-23) mg/dL Creatinine (0.5-0.9) mg/dL GFR Calculation Glucose (65-115) mg/dL Calculated Osmolal ity (285-295) mOsm/k g Lactate (0.5-2.2) mmol/L Calcium (8.5-10.5) mg/dL Total Bilirubin (0.15-1.2) mg/dL AST (0-32) U/L ALT (0-33) U/L Alkaline Phosphata se (35-105) IU/L C-Reactive Protein (0.0-4.9) mg/L Total Protein (6.6-8.7) g/dL Albumin (3.5-5.2) g/dL Globulin (1.3-4.6) g/dL Urine Color Yellow (Yellow) Urine Appearance Sl hazy (CLEAR) Urine pH 7.0 (5-7) Ur Specific Gravit y 1.010 (1.005-1.030) Urine Protein 1+ H (Negative) Urine Glucose (UA) 2+ (Normal) Urine Ketones Negative (Negative) Urine Blood 2+ H (Negative) Urine Nitrate Positive H (Negative) Urine Bilirubin 1+ H (Negative) Urine Urobilinogen 4 H (Negative) mg/dL Ur Leukocyte Lilian ase 1+ H (Negative) Urine RBC (0-2) /hpf Urine WBC (0-5) /hpf Ur Squamous Epith Cells (0-5) /hpf Amorphous Sediment Urine Bacteria (NONE) /hpf Influenza Type A A g (Negative) Influenza Type B A g (Negative) SARS-CoV-2 Ag (Rap id) Negative Imaging Data^: CXR: Attestation: I personally reviewed and interpreted this imaging study as follows: Radiologist's impression: [address] [place] [address] XRay Report Signed Patient: Solange Garcia #: [id number] : 1940Acct#:[id number] Age/Sex: 80 / FADM Date: 08/15/20 Loc: ERRoom/Bed: Attending Dr: Ordering Provider/Ordering MD: Marcelo Mercedes MD, [facility] [place] Date of Service: 08/15/20 Procedure(s): XR chest 1V portable 44033 Accession Number(s): [id number] Report Number: [id number] WS: [id number] Portable AP upright chest, 08/15/2020 Clinical Data: fever. Comparison: PA and lateral chest, 01/13/2017. Findings: No nodules, masses or effusions are seen. The heart is normal. The pulmonary vascularity is not increased. No pneumonia or pneumothorax is seen. The aortic arch and descending aorta are tortuous. The infusion catheter remains in good position ending in the superior vena cava. There is a dextroscoliosis of the thoracic spine. XR/XR chest 1V portable 43988 Impression: Atherosclerosis. Dictated By:Avis Vergara MD Signed By:Avis Vergara MDSigned Date/Time:08/15/20 132 DD/ 1323 Discharge Plan Discharge Patient Disposition: Home Clinical Impression: Acute UTI Condition: Stable Prescriptions: New ciprofloxacin HCl 500 mg tablet 500 mg PO BID Qty: 14 RF: 0 Continued Avastin 25 mg/mL solution 25 mg IV .q 3 weeks RF: 0 metformin 500 mg tablet 2,000 mg PO DAILY 90 Days Qty: 360 RF: 1 (DME) One Touch Ultra Blue Test Strip See Rx Instructions .Route .MEDSUPPLY Qty: 100 RF: 0 dicyclomine 20 mg tablet 20 mg PO TID Qty: 20 RF: 0 potassium chloride 20 mEq tablet,ER particles/crystals 20 meq PO BID RF: 0 furosemide 20 mg tablet 20 mg PO DAILY RF: 0 pravastatin 40 mg tablet 40 mg PO DAILY RF: 0 glimepiride 2 mg tablet 2 mg PO BID RF: 0 Discharge Orders: Discharge ED (Routine); Ordered 08/15/20 Ordered By: Marcelo Mercedes Referrals: Tara Chand FNP [Primary Care Provider] - 1-3 days Discharge Diet: Usual diet Discharge Activity: Increase activity as tolerated Patient Instructions: Urinary Tract Infection in Women (ED) Activity Restrictions/Additional Instructions: Return for any new or worsening symptoms. Follow-up with your primary care provider within 3 days. Take the medication as prescribed. Drink plenty of fluids to keep well-hydrated. Coding Level of Care Code ED Data Security Administrator for Ania Fwd Exam Comprehensive
[2020-08-15 12:35] VITALS: BP 121/78; PULSE 77; RESP 16; O2SAT 95
[2020-08-15 13:10] LABS: Add Urine Microscopic? YES; Bilirubin Urine 1+ (Negative); Blood Urine 2+ (Negative); Glucose Urine UA 4+ (Normal); Ketones Urine 1+ (Negative); Leukocyte Esterase Urine 1+ (Negative); Nitrate Urine Positive (Negative); Protein Urine Trace (Negative); Specific Gravity, Urine 1.015 (1.005-1.030); Urine Appearance Hazy (CLEAR); Urine Color Dark Yellow (Yellow); Urobilinogen Urine 4 mg/dL (Negative); pH Urine 6 (5-7)
[2020-08-15 13:13] LABS: Add Urine Culture? No; Bacteria Urine 2+ /hpf; Squamous Epithelial Cell Urine 25-40 /hpf (0-5); WBC Urine 25-40 /hpf (0-5)
[2020-08-15 13:31] LABS: Basophils % 0.4 %; Eosinophils % 0.4 %; Hemoglobin 12.8 g/dL (11.5-15.3); Lymphocytes # 0.8 10^3/uL (0.8-4.8); Lymphocytes % 7.7 %; Mean Corpuscular Hemoglobin 27.1 pg (28.0-34.0); Mean Corpuscular Volume 84.6 fL (81-99); Mean Platelet Volume 10.7 fL (7.4-10.4); Neutrophils # 8.11 10^3/uL (1.8-7.7); Nucleated Red Blood Cells % 0 %; Platelet Count 147 10^3/cmm (130-400); Red Blood Count 4.73 10^6/uL (4.1-5.3); Red Cell Distribution Width 19.2 % (12.1-15.1)
[2020-08-15 13:42] LABS: Alanine Aminotransferase 37 U/L (0-33); Albumin Level 3.7 g/dL (3.5-5.2); Alkaline Phosphatase 317 IU/L (35-105); Anion Gap 16.8 (5-19); Aspartate Amino Transferase 75 U/L (0-32); Blood Urea Nitrogen 14 mg/dL (8-23); C Reactive Protein 182.7 mg/L (0.0-4.9); Calcium 9.7 mg/dL (8.5-10.5); Carbon Dioxide 28 mmol/L (22-29); Chloride 98 mmol/L (98-107); Globulin 3.4 g/dL (1.3-4.6); Glucose 186 mg/dL (65-115); Osmolality Calculated 293 mOsm/kg (285-295); Potassium 3.8 mmol/L (3.5-5.1); Sodium 139 mmol/L (136-145); Total Protein 7.1 g/dL (6.6-8.7)
[2020-08-15 13:43] LABS: Lactate (Lactic Acid level) 3.4 mmol/L (0.5-2.2)
[2020-08-15 13:55] LABS: Influenza A by IFA Negative (Negative); Influenza B by IFA Negative (Negative)
[2020-08-15 14:03] VITALS: BP 109/47; PULSE 86; RESP 16; O2SAT 97
[2020-08-15 14:29] LABS: Add Urine Microscopic? YES; Bilirubin Urine 1+ (Negative); Blood Urine 2+ (Negative); Glucose Urine UA 2+ (Normal); Ketones Urine Negative (Negative); Leukocyte Esterase Urine 1+ (Negative); Nitrate Urine Positive (Negative); Protein Urine 1+ (Negative); Urine Appearance SL Hazy (CLEAR); Urine Color Yellow (Yellow); Urobilinogen Urine 4 mg/dL (Negative)
[2020-08-15] MEDS: ciprofloxacin 400 MG/200 ML PREMIX 200 MG IV (15:14)
[2020-08-15 15:18] VITALS: BP 122/57; PULSE 74; O2SAT 95
[2020-08-15 16:28] LABS: SARS Covid-2 Antigen Negative (Negative)
[2020-08-15 17:02] VITALS: PULSE 94; RESP 16; O2SAT 95
[2020-08-16 19:58] LABS: Quest SARS-CoV-2 RNA NOT DETECTED (NOT DETECTED)
--- NOTE | 2020-08-17 09:14 | PC.NURSE ---
Pt called and notified of negative COVID result.
== END 2020-08-15 17:03 | disposition home or self-care (01) ==
PROVIDERS: Emergency Provider Family Medicine; PCP Nurse Practitioner Family
DX: N39.0 Urinary tract infection, site not specified (principal); E11.9 Type 2 diabetes mellitus without complications; I10 Essential (primary) hypertension
CPT/HCPCS: 12345; 71045; 80053; 81001; 83605; 85025; 86140; 87426; 87635; 87804; 96365; 99282; 99283; J0744

== ENCOUNTER 2020-08-28 12:19 | Outpatient (CLI) | payer MEDICARE, SELFPAY ==
[2020-08-28] MEDS: alteplase 1 mg/mL SDV 2 mL 2 MG INTRACATH ×2 (10:45→15:10)
[2020-08-28 13:05] LABS: Basophils # 0.1 10^3/uL (0.0-0.1); Basophils % 0.4 %; Eosinophils # 0.1 10^3/uL (0.0-0.8); Eosinophils % 0.6 %; Hematocrit 37.7 % (37.0-47.0); Hemoglobin 11.9 g/dL (11.5-15.3); Mean Corpuscular HGB Conc 31.6 g/dL (30.0-36.0); Mean Corpuscular Hemoglobin 27.2 pg (28.0-34.0); Mean Corpuscular Volume 86.1 fL (81-99); Mean Platelet Volume 10.5 fL (7.4-10.4); Monocytes # 1.1 10^3/uL (0.2-0.9); Monocytes % 7.3 %; Neutrophils # 12.12 10^3/uL (1.8-7.7); Neutrophils % 84.3 %; Nucleated Red Blood Cells % 0 %; Platelet Count 198 10^3/cmm (130-400); Red Blood Count 4.38 10^6/uL (4.1-5.3); Red Cell Distribution Width 20.6 % (12.1-15.1); White Blood Count 14.4 10^3/uL (4.0-10.0)
[2020-08-28 13:27] LABS: Carcinoembryonic Antigen 943.6 ng/mL (0.0-4.7)
[2020-08-28 13:38] LABS: Alanine Aminotransferase 35 U/L (0-33); Alkaline Phosphatase 497 IU/L (35-105); Anion Gap 12.5 (5-19); Aspartate Amino Transferase 73 U/L (0-32); Blood Urea Nitrogen 11 mg/dL (8-23); Calcium 8.9 mg/dL (8.5-10.5); Carbon Dioxide 26 mmol/L (22-29); Chloride 102 mmol/L (98-107); Globulin 3.1 g/dL (1.3-4.6); Glucose 257 mg/dL (65-115); Magnesium 1.7 mg/dL (1.7-2.3); Osmolality Calculated 292 mOsm/kg (285-295); Potassium 3.5 mmol/L (3.5-5.1); Sodium 137 mmol/L (136-145); Total Bilirubin 1.5 mg/dL (0.15-1.2); Total Protein 6.1 g/dL (6.6-8.7)
[2020-08-28] MEDS: sodium chloride 0.9% 500 ML IV (15:15)
--- NOTE | 2020-08-28 16:28 | ONC FU_ITS ---
Dr. Cat follow up note Patient: Elaine Garcia Unit #: [id number]: 1940 Dicatated By: Abdullahi Cat M.D.Date of Visit:Aug 28, 2020 Onc Med Follow-up/Prog Note History of Present Illness: Mrs. Garcia is a 80 -year-old female with history of chronic back pain for which she was taking ibuprofen for the last 4 months. She went to see her primary care physician for routine lab workup and follow-up and found to have severe anemia. Her CBC checked on 05/05/2019 shows white blood count 7.2 hemoglobin 6.7 crit 23.2 platelets 367,000 MCV 65.5 iron studies showed ferritin 6 iron 17 saturation for TIBC 425 and CMP was within normal range. Patient was given 2 units of packed RBCs. Patient said she was feeling weak and tired but thought it was due to old age . She had had no palpitations, no shortness of breath, no history of melena or hematochezia, no history of jaundice, no history of weight loss, no history of hemoptysis or hematemesis, no history of hematuria. No history of weight loss. No history of abdominal pain. Patient has history of peptic ulcer in the past. Last colonoscopy was done 5 years ago and at that time she was found to have some polyps, there were removed as per patient it was negative for any malignancy. Mrs Garcia underwent EGD and colonoscopy by Dr. Haas on 06/07/2019 Showed distal colon/sigmoid mass and biopsy was obtained which shows infiltrating adenocarcinoma CT scan of abdomen pelvis done on 06/08/2019 showed colonic mass involving descending and sigmoid colon with luminal narrowing measuring over length of 6.4 cm and normal size liver. There are several hypoechoic nodules within the liver. The largest and most concerning is in the inferior right lobe measuring 2.2 x 1.3 cm. There are a few additional scattered hypodensities within the remaining liver. CT PET scan done on 06/18/2019 showed hypermetabolic colonic mass in the descending colon at sigmoid with SUV of 18.7. And two hypermetabolic hepatic lesions also seen, one is in the lateral right lobe, segment 7 measuring 1.2 cm with SUV 5.3 and second one in the left lobe measuring 1.3 cm with SUV of 6.5 Next generation sequencing showed K-marti/N marti wild type,BRAF mutation not detected, MSI/MMR intact. recommended treatment with modified FOLFOX and vectibix. She began her first treatment on July 18, 2019 After 6 treatments, follow-up CT PET scan done on 10/14/2019 showed resolution of hepatic metastatic disease and significant improvement in the rectosigmoid mass now SUV 10.75 compared to 18.7 on 06/18/2019. Her last chemotherapy was on October 03, 2019 which completed 6 cycles of FOLFOX and vectibix. She presented the following week for a follow-up as she was having hypokalemia and hypomagnesemia. Her last potassium infusion was 20 mEq here on October 17, 2019. She was taking 20 mEq daily at home. Subsequently started having nausea and off and on vomiting and abdominal cramping was treated with hydration and symptomatic as outpatient on 10/27/2019 patient went to [facility] with persistent but progressive abdominal pain nausea vomiting and underwent CT scan of abdomen pelvis which showed new 0.9 cm hypodense nodule in the anterior left liver lobe. The other low-density nodules previously identified in the liver are not visualized. Calcified sclerotic lesion in the proximal sigmoid colon with distended stool filled colon proximal to the lesion with the mild wall thickening. There is a diffuse dilatation of small bowel with fecalization , measuring up to 4.2 cm. No abdominal or pelvic lymphadenopathy seen. Mrs Garcia came to office on 10/31/2019 with progressive constipation but no abdominal pain, at that time clinical impression was colon obstruction versus ileus. Her case was discussed with her son Dakota Garcia in [facility]. Mrs Garcia was sent to [facility] [place] via ambulance and underwent sigmoid colon resection on 11/03/2019. The final pathology report showed residual tumor, 3.5 cm moderately differentiated, tumor invades through muscularis propria into pericolic colorectal tissue with clear surgical margin and, lymphovascular invasion present ypT3 , 4/ 16 lymph nodes showed metastatic disease ypN2a. Patient tolerated procedure well, Case was discussed with Dr. Garcia and his colleague Dr. Cat-medical oncologist in [place] and and it was decided to start her on a Avastin/Xeloda and repeat CT PET scan after 3 or 4 cycles if it shows good response then tackle liver mets. She started on a Avastin/Xeloda on January 16, 2020. Last dose of a Avastin was given on March 21, 2020 and last dose of Xeloda was taken on April 04, 2020 Mrs Garcia underwent follow-up CT PET scan on March 30, 2020 and the impression was new lesions of both lobes and the liver consistent with metastatic involvement in addition to 2 prominent lesions small foci are present which may be further evaluated with MRI scan of the liver. No other findings suggestive of tumor recurrence or progression. Case was discussed with Dr. Garcia, surgeon and patient's son in [place], who has evaluated and compared latest CT PET scan with the previous one and his impression was no significant change from previous scan e.g. doubtful new lesions. Subsequently she underwent partial left hepatic lobectomy, right hepatic lobe wedge resection and wedge resection of segment 7 and 8 along with cholecystectomy on May 09, 2020 and final pathology report showed metastatic colorectal adenocarcinoma largest mets 4 cm, involving left hepatic lobe; 1.8 cm invasive adenocarcinoma involving the right hepatic lobe. And 0.4 cm metastatic colorectal carcinoma involving segment 7. She started on maintenance therapy with single agent oral Xeloda on June 20, 2020, and plan was to continue Xeloda 850 mg/m??? p.o. twice a day/ her day 1-14 and repeat every 21 days, she completed her two weekly course on July 04, 2020. Her follow-up labs done on July 13, 2020 showed CBC within normal limits, but CMP showed her ALT gone up to 55, AST 70, alk phos 172 compared to on June 18, 2020. At that time her second cycle with oral Xeloda was put on hold for 1 week and her repeat labs done on July 18, 2020 showed improvement in her transaminases e.g. ALT gone down to 40 and AST was also 40 compared to 55/70 on July 13, 2020 although alk phos remained elevated at 198. At that time, Xeloda dose was reduced to 1000 mg p.o. twice daily for 2 weeks from 1300 mg p.o. twice daily which was given with her previous cycle. seen on 07/18/2020. After improvement of her LFTs, it was elected to pursue her second cycle of capecitabine but at a lower dose of 1000 mg p.o. twice daily. She also received her flu vaccine on 07/18/2020. Came for follow-up, complaining of generalized weakness and fatigue, poor oral intake, as per patient she went to [facility] on August 15, 2020 and was diagnosed with urine tract infection and she was given 7 days of oral ciprofloxacin and which she completed and now denies any fever chills denies any dysuria or hematuria but off and on burning micturition. No diarrhea or constipation no mouth sores, no jaundice, no abdominal pain but poor appetite and oral intake. Complaining of dry mouth last dose of Xeloda was taken on July 31, 2020 Medications: Furosemide 1 Tablet (of 40 mg) Oral daily, Glimepiride 1 Tablet (of 2 mg) Oral b.i.d., LORazepam 0.5 - 1 Tablet (of 1 mg) Oral t.i.d. PRN, Losartan Potassium 1 Tablet (of 100 mg) Oral daily, metFORMIN HCl 2 Tablet (of 500 mg) Oral b.i.d., Potassium Chloride ER 2 Tablet (of 10 meq) Tablet, controlled release Oral daily, Pravastatin Sodium 1 Tablet (of 40 mg) Oral daily, Prochlorperazine Maleate 1 Tablet (of 10 mg) Oral q 4 hours PRN Allergies: Penicillin Review of Systems: Constitutional - Appetite is poor and weight is stable. No fever, chills, hot flashes, or night sweats. Energy level is poor, ENMT - No sinus congestion/drainage. No mouth sores. No sore throat or difficulty swallowing, Hematologic/Lymphatic - No abnormal bruising or bleeding, Respiratory - positive for shortness of breath. No cough. No pleuritic pain or hemoptysis, Cardiovascular - No angina pain. No palpitations, Gastrointestinal - no for nausea and vomiting. No heartburn or acid reflux. No diarrhea or constipation. No blood in the stool or black stools, Genitourinary (F) - No dysuria or hematuria. No urinary frequency. No urgency or incontinence, Musculoskeletal - Positive for back pain, Neurologic - No headache or dizziness, Psychiatric - No anxiety or depression. No insomnia. Vital Signs: Performed on Aug 28, 2020 14:26 Height - 60.00 in Weight - 141.0 lbs (HIGH) BSA - 1.61 sq.m BMI - 27.54 Temperature - 99.0 F (HIGH) Pulse - 90 /min Respiration - 24 /min BP - 140/91 mm(hg) O2 Sat - 96 % Pain - 0 Performance Status: 3 - Capable of only limited self-care, confined to bed or chair more than 50% of waking hours. (ECOG) Physical Examination: ENMT - No mouth sores, dry oral mucosa no mucositis or thrush, no jaundice, Respiratory - Lungs are clear to auscultation, Cardiovascular - Regular rate and rhythm of heart, Abdomen - Soft, bowel sounds present, Extremities - No visible edema or rash. Lab/Imaging: Test performed on Jul 25, 2020 09:15 Sodium 138 mmol/L Potassium 3.2 mmol/L Chloride 98 mmol/L CO2 30 mmol/L Anion Gap 13.2 BUN 16 mg/dL Creatinine 0.7 mg/dL Cr Clearance (Est) 59.3900 mL/min Glucose 213 mg/dL Osmolality - Calculated 294 mOsm/kg Calcium 10.1 mg/dL Protein, Total 7.0 g/dL Albumin 4.0 g/dL Globulin 3.0 g/dL Bilirubin, Total 0.4 mg/dL ALT (SGPT) 16 U/L AST (SGOT) 26 U/L Alkaline Phosphatase 206 IU/L WBC 7.3 10 3/uL RBC 4.53 10 6/uL HGB 12.4 g/dL HCT 40.0 % MCV 88.3 fL MCH 27.4 pg MCHC 31.0 g/dL RDW 17.9 % Platelet Count 158 10 3/cmm MPV 10.7 fL Neutrophils 5.47 10 3/uL Lymphocytes 1.1 10 3/uL Monocytes 0.6 10 3/uL Eosinophils 0.1 10 3/uL Basophils 0.1 10 3/uL Neutrophil % 74.6 % Lymphocyte % 14.9 % Monocyte % 7.6 % Eosinophil % 1.8 % Basophils % 0.7 % NRBC % 0 % Test performed on Apr 11, 2020 08:35 Ua Color Yellow Ua Appearance SL Hazy Ua Glucose 1+ Ua Bilirubin Neg Ua Ketones Negative Ua Specific [place] 1.020 Ua Blood Neg Ua pH 5.0 Ua Protein Neg Ua Nitrites Positive Ua Leukocyte Esterase 1+ Ua Micro: WBC 25-40 /hpf Ua Micro: RBC NONE /hpf Ua Micro: Squam Epith Cells 5-10 Ua Micro: Bacteria 2+ Ua Micro: Mucous TRACE Test performed on Apr 11, 2020 08:25 CEA 18.0 ng/mL Impression: Moderately differentiated infiltrating adenocarcinoma. Status post sigmoid colon resection done on 11/03/2019 final pathology report showed 3.5 cm moderately differentiated adenocarcinoma tumor invades through muscularis propria into pericolorectal fat ypT3 and 4 out of 16 lymph node examined showed metastatic disease ypN2a MMR D intact CT scan of abdomen done on 06/08/2019 showed short segment 80 of significant circumferential mucosal thickening extending over mental 6.4 cm involving descending colon and proximal sigmoid. Moderate narrowing of the lumen. There is adjacent pericolonic stranding with a wall thickening and soft tissue infiltration. There is a small adjacent lymph node measuring 5 mm. Normal size liver. There are several hypoechoic nodules within the liver. The largest and most concerning is the inferior right lobe measuring 2.2 x 1.3 cm there are a few additional scattered hypodensities within the remaining liver. CEA checked on 06/15/2019 was 6.3 Well compensated, Microcytic hypochromic anemia due to iron deficiency Most likely due to bleeding from colon cancer CBC done on 05/05/2019 showed white blood count 7.2 hemoglobin 6.7 hematocrit 23.2 MCV 65.5 platelets 367,000 and ferritin 6, iron saturation 4%, iron 17. Status post 2 units of packed RBC with that her repeat CBC done on 05/24/2019 showed white blood count 5.5 hemoglobin 9.1 g, hematocrit 29.4 MCV 70.9 platelets 320,000 with a normal differential. colonoscopy was done 5 years ago, some polyps were removed, as per patient, there were benign. Distant past history of peptic ulcer disease. discussed with Mrs Garcia regarding her CT PET scan which confirmed hepatic metastatic disease and next initially sequencing which showed MSI/MMR intact, K-marti/ Nras wild type, BRAF no mutation detected. dicussed the role of systemic chemotherapy in stage IV colon cancer with the patient and family and earlier with her son, Dakota Garcia MD who is a surgeon in [facility]. Based on next gene sequencing, it was recommended that she proceed with panitumumab 6 mg/kg every 2 weeks along with FOLFOX. Considering her age and this stage IV disease, there was consideration for dose modification. She did obtain Port-A-Cath placement to facilitate chemotherapy. The plan was to give her 6 cycles of this regimen followed by CT PET scan to assess the response. Her last chemotherapy was on 10/03/2019 which completed 6 cycles of chemotherapy. Follow-up CT PET scan done after 6 cycles of hemotherapy with FOLFOX/panitumumab showed excellent response with resolution of hepatic metastatic disease and significant improvement in the primary in the rectosigmoid colon: SUV 10.75 compared to 18.7 at the time of diagnosis.In October 2019 patient developed symptoms consistent with intestinal obstruction, patient was transferred to [place] to her son Dr. Garcia, and there she underwent sigmoid colon resection on November 03, 2019 and the final pathology report came back yT3, N2a and at that time her case was discussed with Dr. Garcia and his colleague Dr. Cat, medical oncologist and decided to proceed with a Avastin/Xeloda and repeat CT PET scan which Was done on March 30, 2020 which showed persistent hepatic disease with possible new lesions, MRI liver was suggested and no other distant mets seen. Subsequently patient underwent partial left hepatic lobectomy, right hepatic lobe wedge resection and wedge resection of segment 7 and 8 along with cholecystectomy on May 09, 2020 and final pathology report showed metastatic colorectal adenocarcinoma largest mets was 4 cm involving left hepatic lobe. 1.8 cm involving right hepatic lobe. 0.4 cm metastatic colorectal cancer involving segment 7. Patient was restarted on maintenance therapy with single agent oral Xeloda for day 1 through 14 q. 21 days on June 20, 2020. With cycle one of the Xeloda she did experience elevation of her ALT which elevated to 55 (normal is 0-30) AST was 70 with normal being 0-32. Her alk phos was 172 normals 35-1 05. She was evaluated by Dr. Cat on July 18 and was elected to reduce her Xeloda 2000 mg p.o. twice daily for 14 days and she was to resume that day. Her ALT at that time was 40 AST was 40 and alk phos was 198. Plan: Discussed with patient regarding her labs white blood count 14.4 hemoglobin 11.9 hematocrit 37.7 platelets 198,000 CMP within normal limit except glucose 257 and ALT 73 AST 497 CEA 943.6 compared to 18 on April 11, 2020 Clinically, patient appears dehydrated, will consider IV fluids normal saline 500 cc and also recheck her blood sugar and if is elevated consider insulin based on sliding scale. Also check a urinalysis to to ensure resolution of UTI and her chest x-ray was done on August 15, 2020 showed no evidence of pulmonary mets or infiltrates, her lab work-up shows her CEA has gone up significantly, thus we will consider follow-up CT scan of abdomen pelvis with and without contrast to rule out disease progression. In the meantime we will continue supportive care and patient was advised to maintain hydration and will consider IV hydration on as-needed basis in the office and then she will return to clinic in 1 week with CBC CMP and CT scan of abdomen pelvis Signed By: Abdullahi Cat M.D. <<Signature on File>>
[2020-08-28 18:00] LABS: Bilirubin Urine 1+ (Negative); Blood Urine Neg (Negative); Glucose Urine UA 1+ (Normal); Ketones Urine Negative (Negative); Leukocyte Esterase Urine Negative (Negative); Nitrate Urine Negative (Negative); Protein Urine Trace (Negative); Specific Gravity, Urine 1.015 (1.005-1.030); Urine Appearance Hazy (CLEAR); Urine Color Yellow (Yellow); Urobilinogen Urine Norm (Negative); pH Urine 5 (5-7)
[2020-08-28 18:14] LABS: Add Urine Culture? No; Bacteria Urine 4+ /hpf; RBC Urine 0-4 /hpf (0-2); Squamous Epithelial Cell Urine 40-55 /hpf (0-5)
== END 2020-08-28 12:20 | disposition home or self-care (01) ==
LOC: ONCMED 12:19
PROVIDERS: PCP Nurse Practitioner Family; Visit Provider Internal Medicine Hematology & Oncology
DX: C18.7 Malignant neoplasm of sigmoid colon (principal); C77.2 Secondary and unspecified malignant neoplasm of intra-abdominal lymph nodes; C78.7 Secondary malignant neoplasm of liver and intrahepatic bile duct; E86.0 Dehydration; R97.0 Elevated carcinoembryonic antigen [CEA]; N39.0 Urinary tract infection, site not specified; D50.9 Iron deficiency anemia, unspecified; Z87.11 Personal history of peptic ulcer disease; Z79.899 Other long term (current) drug therapy
CPT/HCPCS: 36415; 36593; 80053; 81001; 82378; 83735; 85025; 96360; 96375; 99214; J2997; J7040

== ENCOUNTER 2020-09-03 14:13 | Observation (INO) | payer MEDICARE, SELFPAY ==
[2020-09-03 14:48] VITALS: BP 147/91; PULSE 94; RESP 14; TEMP 37; O2SAT 95; BMI 26.4
--- NOTE | 2020-09-03 15:00 | XRR_ITS ---
PROCEDURE INFORMATION: Exam: XR Chest, 1 View Exam date and time: 09/03/2020 3:04 PM Age: 80 years old Clinical indication: Shortness of breath; Prior surgery; Additional info: SOB, weakness TECHNIQUE: Imaging protocol: XR of the chest Views: 1 view. COMPARISON: CR XR chest 1V portable [id number] 08/15/2020 12:44 PM FINDINGS: Tubes, catheters and devices: A central line is in place on the left side extending into the proximal SVC. Lungs: Unremarkable. No consolidation. Pleural space: Unremarkable. No pleural effusion. No pneumothorax. Heart/Mediastinum: Unremarkable. No cardiomegaly. Bones/joints: There is osteoarthritis and dorsolumbar S shaped scoliosis. XR/XR chest 1V portable [id number] IMPRESSION: 1. No acute findings. 2. Left central line in the SVC. 3. Dorsal lumbar S-shaped scoliosis and osteoarthritis
--- NOTE | 2020-09-03 20:04 | ECG_ITS ---
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 [id number]
--- NOTE | 2020-09-03 20:05 | W.ED.FEMALGU ---
HPI - Female Genitourinary General: Chief complaint: Urogenital-Female Stated complaint: UTI S/S, SOB Time Seen by Provider: 09/03/20 19:59 History of Present Illness: HPI Narrative: 80-year-old female patient presents to the emergency department with increased shortness of breath, urinary frequency. Spouse reports treated for urinary tract infection on August 15, 2020. Remains on antibiotics due to urinary frequency and supposed urinary tract infection. She denies abdominal pain, reports nausea off and on. Spouse reports concern she has increased shortness of breath when going to the bathroom. She reports cough and congestion, states cough is nonproductive. She has colon cancer with liver metastatic disease. Under the care of Dr. Cat through oncology. She denies heart palpitations or swelling of the extremities. History of moderately differentiated adenocarcinoma of the colon, metastatic involvement of the liver. Currently on oral chemotherapy. She denies fever or chills. She reports ribs are sore from coughing. MD elicited complaint: other (urinary frequency, denies dysuria) Associated symptoms: Reports nausea and weakness (progressively worsening x 4 days); Deny headache(s) Treatment prior to arrival: none Patient : No Review of Systems General: Reports: 10 or more systems reviewed and unremarkable except in HPI and below Const: Reports: change in appetite (decreased), fatigue and malaise; Denies: fever(s), chills or diaphoresis Eyes: Denies: change in vision, blurry vision, eye discomfort or eye redness ENMT: Denies: throat pain, hoarseness, dental pain, disequilibrium, nasal discharge, nasal congestion, nasal obstruction or post nasal drip Card: Reports: chest pain (from cough), lightheadedness and dyspnea on exertion; Denies: palpitations, irregular heart rhythm, edema, swelling of feet/ankles, leg pain with exertion or acrocyanosis Resp: Reports: dyspnea, productive cough and chest congestion; Denies: non-productive cough, wheezing or hemoptysis GI: Reports: nausea; Denies: vomiting, hematemesis, diarrhea, constipation or GI cramping : Denies: difficulty voiding or dysuria Musc: Reports: muscle weakness; Denies: neck pain, back pain or muscle cramps Skin/Breast: Denies: rash or pruritus Neuro: Reports: difficulty walking (due to SOB); Denies: headache(s), numbness in extremities, weakness in extremities, confusion or behavioral changes Deven/Lymph: Denies: easy bruising PFSH ED PFSH: Medical History Cancer Diabetes Hypertension Surgical History H/O breast biopsy H/O: hysterectomy Social History Smoking and tobacco status: never smoked Second hand smoke exposure: No Alcohol intake: never Lives independently: Yes Household members: spouse Housing: House Marital status: Current occupational status: retired Current occupational exposures/hazards: No History of recent travel: No Current gender identity: Female Physical Exam Const: COMMON NORMALS: no acute distress, average body habitus, patient oriented x3, alert and well nourished EXAM LIMITATIONS: no altered mental status and no physical limitations GENERAL APPEARANCE: cooperative, comfortable, well kempt, well developed and well hydrated; not anxious and not ill appearing NUTRITIONAL APPEARANCE: obese ORIENTATION/CONSCIOUSNESS: Yes awake, Yes oriented to person, Yes oriented to place and Yes oriented to time HENMT: COMMON NORMALS: normocephalic, atraumatic, external ears normal, EAC's normal, Normal external nose present and moist oral mucous membranes HEAD & SCALP: normal to inspection, normocephalic and atraumatic FACE & SINUS: normal facial exam and face symmetric NOSE: Normal external nose present EXTERNAL EAR: Yes external ears normal EXTERNAL AUDITORY CANAL: EAC's normal Eye: COMMON NORMALS: Equal, round and reactive pupils present and EOMs intact bilaterally GENERAL EYE: appearance normal, both eyes and all related structures PUPIL: Yes Equal, round and reactive pupils present Neck/C-Spine: COMMON NORMALS: full ROM, no lymphadenopathy and supple GENERAL: Yes normal visual inspection and Yes trachea midline CERVICAL SPINE: Yes cervical ROM normal Lymph: LYMPHATIC: no lymphadenopathy noted Chest: COMMONS NORMALS: normal inspection of the chest and normal palpation of entire chest wall Resp: COMMON NORMALS: normal respiratory effort and clear to auscultation bilaterally EFFORT & INSPECTION: Yes able to speak in complete sentences AUSCULTATION: clear to auscultation bilaterally and diminished lung sounds bilateral in the lower lung prieto Cardio: COMMON NORMALS: S1 normal heart sound present, S2 normal heart sound present and Peripheral pulses 2+ throughout RHYTHM: abnormal rhythm irregularly irregular HEART SOUNDS: S1 normal heart sound present and S2 normal heart sound present PERIPHERAL PULSES: Peripheral pulses 2+ throughout GI: COMMON NORMALS: Normal to inspection, nondistended, normoactive bowel sounds present, Soft to palpation and non-tender INSPECTION: Yes normal to inspection, No abdominal wall ecchymosis, Yes scar and No GI erythema present PALPATION: Yes Soft to palpation : COMMON NORMALS: Yes no CVA tenderness BLADDER/KIDNEY EXAM: Yes no CVA tenderness Back/Pelvis: COMMON NORMALS: no CVA tenderness and thoracic and lumbar spine normal to inspection Extremity: COMMON NORMALS: normal to inspection, full ROM and capillary refill normal Neuro: COMMON NORMALS: patient oriented x3 and no focal motor deficits SENSORIUM/ORIENTATION: Yes alert, Yes oriented to person, Yes oriented to place and Yes oriented to time Psych: COMMON NORMALS: mental status grossly normal, Normal thought process present and cooperative APPEARANCE: Yes well kempt ACTIVITY/MOTOR BEHAVIOR: Yes appropriate eye contact THOUGHT PROCESS: Normal thought process present Skin: COMMON NORMALS: no rashes or lesions noted and turgor normal GENERAL SKIN EXAM: no rashes or lesions noted and turgor normal Course ED course: 80-year-old female patient presents to the emergency department with increased shortness of breath, continued urinary frequency and weakness. Liver enzymes found to be elevated, alkaline phosphatase significantly elevated, CT scan chest abdomen pelvis with complete liver infiltration of metastatic disease, intra-abdominal lymphadenopathy concerning for worsening disease progression. Transfer of care to Dr. Granados as patient will require hospital admission. Also noted was pulmonary emboli on CTA of the chest. Consultations: Consultation #1: Dr. Cat, discussed with Dr. Cat findings on CTA chest, abdomen and pelvis. Question anticoagulation without CT of the head. Patient neurologically intact, advised may start with anticoagulation with recommendation to scan head in the morning. Time: 22:15 Vital Signs: Vital signs: Vital Signs Temperature 98.6 F 09/03/20 14:48 Pulse Rate 93 09/03/20 20:18 Respiratory Rate 16 09/03/20 20:18 Blood Pressure 134/96 09/03/20 20:18 Pulse Oximetry 95 09/03/20 20:18 MDM - Female Lab Data: Labs: Lab Results 12/09/03/20 09/03/20 Range/Units 20:40 20:40 20:40 WBC 12.7 H (4.0-10.0) 10^3/ uL RBC 4.73 (4.1-5.3) 10^6/u L Hgb 12.6 (11.5-15.3) g/dL Hct 38.9 (37.0-47.0) % MCV 82.2 (81-99) fL MCH 26.6 L (28.0-34.0) pg MCHC 32.4 (30.0-36.0) g/dL RDW 21.0 H (12.1-15.1) % Plt Count 176 (130-400) 10^3/c mm MPV 10.3 (7.4-10.4) fL Neut % (Auto) 80.5 % Lymph % (Auto) 7.4 % [place] % (Auto) 10.9 % Eos % (Auto) 0.4 % Baso % (Auto) 0.3 % Neut # (Auto) 10.25 H (1.8-7.7) 10^3/u L Lymph # (Auto) 0.9 (0.8-4.8) 10^3/u L [place] # (Auto) 1.4 H (0.2-0.9) 10^3/u L Eos # (Auto) 0.1 (0.0-0.8) 10^3/u L Baso # (Auto) 0.0 (0.0-0.1) 10^3/u L Nucleated RBC % (a uto) 0 % Nucleated RBCs # 0.0 /100WBC Sodium 137 (136-145) mmol/L Potassium 4.0 (3.5-5.1) mmol/L Chloride 100 (98-107) mmol/L Carbon Dioxide 24 (22-29) mmol/L Anion Gap 17.0 (5-19) BUN 10 (8-23) mg/dL Creatinine 0.3 L (0.5-0.9) mg/dL GFR Calculation Not Reportable Glucose 180 H (65-115) mg/dL Calculated Osmolal ity 288 (285-295) mOsm/k g Calcium 9.0 (8.5-10.5) mg/dL Total Bilirubin 2.8 H (0.15-1.2) mg/dL AST 77 H (0-32) U/L ALT 35 H (0-33) U/L Alkaline Phosphata se 576 H (35-105) IU/L Troponin T Baselin e 24 H (0-10) ng/L Total Protein 6.5 L (6.6-8.7) g/dL Albumin 3.1 L (3.5-5.2) g/dL Globulin 3.4 (1.3-4.6) g/dL Imaging Data: CT Chest: Radiologist's impression: [facility] [address] [place] [address] CT Scan Report Signed with Addenda Patient: Elaine Garcia Unit #: [id number] : [id number] Age/Sex: 80 / F ADM Date: 09/03/20 Loc: ER Room/Bed: Attending Dr: Ordering Provider/Ordering MD: Rasheeda Man Date of Service: 09/03/20 Procedure(s): CT angio chest w abd pel w con Accession Number(s): [id number] Report Number: [id number]/CT angio chest w abd pel w con THIS REPORT CONTAINS FINDINGS THAT MAY BE CRITICAL TO PATIENT CARE. The findings were verbally communicated via telephone conference with Rasheeda Man at 9:50 PM HYBRID POWERTRAIN DEVELOPMENT ENGINEER on 09/03/2020. The findings were acknowledged and understood. Radiation Dose CTDIVOL = (mGy): DLP = 1145.62 1145.62 (mGy-cm) Addendum Dictated By: Jack Muir Addendum Signed By: Jack Muir Signed Date/Time: 09/03/20 215 9 Addendum Cosigned By: PROCEDURE INFORMATION: Exam: CT Angiography Chest With Contrast Exam date and time: 09/03/2020 8:54 PM Age: 80 years old Clinical indication: Other: UTI; Shortness of breath; Prior surgery; Surgery type: Hysterectomy, port; Additional info: SOB, UTI TECHNIQUE: Imaging protocol: Computed tomographic angiography of the chest with intravenous contrast. 3D rendering (Not supervised by radiologist): MIP and/or 3D reconstructed images were created by the technologist. Total images: 935 Radiation optimization: All CT scans at this facility use at least one of these dose optimization techniques: automated exposure control; mA and/or kV adjustment per patient size (includes targeted exams where dose is matched to clinical indication); or iterative reconstruction. Contrast material: OMNI 350; Contrast volume: 95 ml; Contrast route: INTRAVENOUS (IV); COMPARISON: CR XR chest 1V portable [id number] 09/03/2020 3:29 PM RADIATION DOSE METRICS: Total DLP (mGy-cm): 1145.62 FINDINGS: Tubes, catheters and devices: Left Infusaport catheter. Pulmonary arteries: Examination is positive for pulmonary embolism/pulmonary arterial thrombus. Nonocclusive pulmonary embolism extends from the distal left main pulmonary artery into the left lower lobe inter lobar artery and into the posterior basal segment segmental artery with less significant involvement of the medial basal segment and anterior basal segment. Nonocclusive pulmonary arterial thrombus extends into the anterior segment left upper lobe segmental and subsegmental vessels. Right upper lobe nonocclusive pulmonary arterial thrombus greatest involvement posterior segment. No associated right ventricular strain with the RV/LV ratio less than 1.0. Aorta: The thoracic aorta is nonaneurysmal. No visible intimal flap or dissection. Mild arterial sclerotic disease. Tortuous thoracic aorta which can be seen in hypertensive cardiovascular disease. Lungs: Several new bilateral subcentimeter pulmonary nodules with concern for hematogenous metastasis. Solitary small calcified granuloma of antecedent disease left lung apex measuring under 5 mm. Pleural space: Bilateral scant pleural effusions. Heart: Minimal coronary artery disease. No visible cardiomegaly. Minimal volume pericardial effusion. Left ventricular prominence. Lymph nodes: Prominent left axillary lymph node measuring 26 mm x 15 mm. No definitive evidence of active mediastinal or hilar lymphadenopathy. Bones/joints: No visible acute osseous abnormality. Scoliosis. Degenerative disease and degenerative disc disease of the spine with spondylosis deformans. No visible osteolytic or osteoblastic destructive process. Osteopenia/osteoporosis. Soft tissues: Unremarkable. IMPRESSION: 1. Examination is positive for pulmonary embolism/pulmonary arterial thrombus. 2. No evidence for right ventricular strain. 3. Several new bilateral subcentimeter pulmonary nodules with concern for hematogenous metastasis. 4. Bilateral scant pleural effusions. 5. Minimal volume pericardial effusion. 6. Prominent left axillary lymph node. PROCEDURE INFORMATION: Exam: CT Abdomen And Pelvis With Contrast Exam date and time: 09/03/2020 8:54 PM Age: 80 years old Clinical indication: Other: UTI; Shortness of breath; Prior surgery; Surgery type: Hysterectomy, port; Additional info: SOB, UTI TECHNIQUE: Imaging protocol: Computed tomography of the abdomen and pelvis with intravenous contrast. Radiation optimization: All CT scans at this facility use at least one of these dose optimization techniques: automated exposure control; mA and/or kV adjustment per patient size (includes targeted exams where dose is matched to clinical indication); or iterative reconstruction. Contrast material: OMNI 350; Contrast volume: 95 ml; Contrast route: INTRAVENOUS (IV); COMPARISON: CR XR chest 1V portable [id number] 09/03/2020 3:29 PM RADIATION DOSE METRICS: Total DLP (mGy-cm): 1145.62 FINDINGS: Liver: Extensive hepatic metastatic disease. Evidence of a previous partial segmental left hepatic lobe resection. Gallbladder and bile ducts: Gallbladder not visualized presumed surgically absent. Pancreas: Pancreas unremarkable. No visible pancreatic ductal ectasia. Spleen: Spleen unremarkable. Adrenal glands: Adrenal glands appear unremarkable. Kidneys and ureters: No hydronephrosis or perinephric fluid. Stable tiny simple cortical cysts left kidney. No follow-up recommended. No visible nephrolithiasis. Stomach and bowel: Diverticulosis coli without visible evidence for acute diverticulitis nonobstructive bowel pattern. No visible adynamic or reactive ileus. Small hiatal hernia. Appendix: The appendix is visualized and appears noninflamed. Intraperitoneal space: No visible evidence of pneumoperitoneum. No visible intraperitoneal ascites. Vasculature: Portal vein remains patent. Lymph nodes: Retroperitoneal periaortic and pericaval lymphadenopathy. Dominant periaortic lymph node measures 30 mm x 17 mm x 25 mm. Urinary bladder: Unremarkable as visualized. Reproductive: Status post hysterectomy. Bones/joints: No visible active or acute osseous pathology. No visible osteolytic or osteoblastic destructive process. Osteopenia/osteoporosis. Scoliosis. Degenerative disease and degenerative disc disease of the spine. Facet arthrosis. Soft tissues: Unremarkable. CT/CT angio chest w abd pel w con IMPRESSION: 1. Extensive hepatic metastatic disease. 2. Retroperitoneal lymphadenopathy. 3. Diverticulosis coli without visible evidence for acute diverticulitis. Radiation Dose CTDIVOL = (mGy): DLP = 1145.62 1145.62 (mGy-cm) Dictated By: Jack Muir Signed By: Jack Muir Signed Date/Time: 09/03/202147 DD/ 46 Discharge Plan Discharge Prescriptions: No Action Avastin 25 mg/mL solution 25 mg IV .q 3 weeks RF: 0 metformin 500 mg tablet 2,000 mg PO DAILY 90 Days Qty: 360 RF: 1 (DME) One Touch Ultra Blue Test Strip See Rx Instructions .Route .MEDSUPPLY Qty: 100 RF: 0 dicyclomine 20 mg tablet 20 mg PO TID Qty: 20 RF: 0 potassium chloride 20 mEq tablet,ER particles/crystals 20 meq PO BID RF: 0 furosemide 20 mg tablet 20 mg PO DAILY RF: 0 pravastatin 40 mg tablet 40 mg PO DAILY RF: 0 glimepiride 2 mg tablet 2 mg PO BID RF: 0 ciprofloxacin HCl 500 mg tablet 500 mg PO BID Qty: 14 RF: 0 Coding Level of Care Code ED Belting Cutter for Chg Fwd Exam Comprehensive
[2020-09-03 20:18] VITALS: BP 134/96; PULSE 93; RESP 16; O2SAT 95
[2020-09-03 21:02] LABS: Basophils % 0.3 %; Eosinophils # 0.1 10^3/uL (0.0-0.8); Eosinophils % 0.4 %; Hematocrit 38.9 % (37.0-47.0); Hemoglobin 12.6 g/dL (11.5-15.3); Lymphocytes # 0.9 10^3/uL (0.8-4.8); Lymphocytes % 7.4 %; Mean Corpuscular HGB Conc 32.4 g/dL (30.0-36.0); Mean Corpuscular Hemoglobin 26.6 pg (28.0-34.0); Mean Corpuscular Volume 82.2 fL (81-99); Mean Platelet Volume 10.3 fL (7.4-10.4); Monocytes # 1.4 10^3/uL (0.2-0.9); Monocytes % 10.9 %; Neutrophils # 10.25 10^3/uL (1.8-7.7); Neutrophils % 80.5 %; Nucleated Red Blood Cells % 0 %; Platelet Count 176 10^3/cmm (130-400); Red Blood Count 4.73 10^6/uL (4.1-5.3); White Blood Count 12.7 10^3/uL (4.0-10.0)
[2020-09-03] MEDS: iohexol 350 mg/mL 100 mL Btl IV (21:09)
[2020-09-03 21:17] LABS: Alanine Aminotransferase 35 U/L (0-33); Albumin Level 3.1 g/dL (3.5-5.2); Alkaline Phosphatase 576 IU/L (35-105); Aspartate Amino Transferase 77 U/L (0-32); Blood Urea Nitrogen 10 mg/dL (8-23); Carbon Dioxide 24 mmol/L (22-29); Chloride 100 mmol/L (98-107); Globulin 3.4 g/dL (1.3-4.6); Glucose 180 mg/dL (65-115); Osmolality Calculated 288 mOsm/kg (285-295); Sodium 137 mmol/L (136-145); Total Bilirubin 2.8 mg/dL (0.15-1.2); Total Protein 6.5 g/dL (6.6-8.7)
[2020-09-03 21:32] LABS: Troponin(5th) Baseline 24 ng/L (0-10)
[2020-09-03 22:00] VITALS: BP 134/96; PULSE 100; RESP 15
--- NOTE | 2020-09-03 22:35 | P.HP_ITS ---
Providers/Chief Complaint Primary Care Provider: AMELIA Dong Chief Complaint: WEAKNESS History of Present Illness Elaine Garcia is a 80 year old female who has history of stage IV colon cancer with metastasis to liver her last chemotherapy session 08/30, follows up with Dr. Cat presented today for generalized weakness. Patient is stating that she recently started a second course of antibiotics for UTI, her first week was on ciprofloxacin and she is not sure about her second medication. In total she has finished 11 to 12 days on antibiotics, currently she is not experiencing dysuria, fever, nausea, vomiting chest pain or shortness of breath. Patient presented to the hospital because she has no energy at all to carry out daily activities however at baseline she is not very active she uses wheelchair for ambulation and a walker. Recently she had a fall when she was operating her walker as well. Diagnosis in the ER revealed normal hemodynamics she saturating well on room air, pulmonary imaging revealed bilateral pulmonary embolism, hepatic metastatic disease retroperitoneal lymphadenopathy and diverticulosis without diverticulitis, Dr. Cat agreed with Eliquis loading dose, this was started after discussing with the patient. At the time my evaluation she was saturating well on room air with normal hemodynamics no active complaints. Review of Systems Const: Reports: chills, body aches, fatigue and malaise; Denies: fever(s) Eyes: Denies: change in vision ENMT: Denies: throat pain Card: Denies: chest pain Resp: Denies: dyspnea GI: Denies: abdominal pain : Denies: flank pain Musc: Denies: neck pain Skin/Breast: Denies: rash Neuro: Denies: headache(s) Psych: Denies: anxiety Endo: Denies: polyuria Deven/Lymph: Denies: easy bruising All/Imm: Denies: urticaria Medications/Allergies Home Medications Medication Instructions Recorded Confirmed Last Taken Type dicyclomine 20 mg PO TID #20 tab 10/27/19 08/15/20 08/15/20 Rx One Touch Ultra Blue Test Strip #100 each 03/05/20 08/15/20 Unknown Rx bevacizumab 25 mg/mL intravenous 25 mg IV .q 3 weeks ml 03/12/20 08/15/20 08/15/20 History solution metformin 500 mg tablet 2,000 mg PO DAILY 90 Days #360 tab 03/12/20 08/15/2011/03 Rx ciprofloxacin HCl 500 mg PO BID #14 tab 08/15/20 Unknown Rx furosemide 20 mg PO DAILY 08/15/20 08/15/20 08/15/20 History glimepiride 2 mg PO BID 08/15/20 08/15/20 08/15/20 History potassium chloride 20 meq PO BID 08/15/20 08/15/20 08/15/20 History pravastatin 40 mg PO DAILY 08/15/20 08/15/20 08/14/20 History Allergies Allergy/AdvReac Type Severity Reaction Status Date / Time Penicillins Allergy Intermediate HIVES Verified 08/15/20 11:35 PFSH Acute PFSH: Medical History Back pain Cancer Colon cancer Moderately differentiated infiltrating adenocarcinoma status post sigmoid colon resection with metastases to liver Diabetes Hypertension Microcytic anemia Port-A-Cath in place Surgical History H/O breast biopsy H/O: hysterectomy History of surgery of liver Right hepatic lobectomy along with cholecystectomy May 03 Family History (Updated 09/04/20 @ 00:02 by Jose Savage MD) Other Family history non-contributory Social History Smoking and tobacco status: never smoked Second hand smoke exposure: No Alcohol intake: never Lives independently: Yes Household members: spouse Housing: House Marital status: Current occupational status: retired Current occupational exposures/hazards: No History of recent travel: No Current gender identity: Female Vitals/I&O/Wt Last Vital Signs Temp 98.6 F 09/03/20 14:48 Pulse 93 09/03/20 20:18 Resp 16 09/03/20 20:18 BP 134/96 09/03/20 20:18 Pulse Ox 95 09/03/20 20:18 Weight last 48 hrs Weight 61.235 kg Physical Exam Narrative: EXAM NARRATIVE: elderly female looks well-hydrated not in any distress Hemodynamically stable saturating well on room air Well-hydrated EOMI, PERRLA GCS 15 Awake alert oriented x3 S1, S2 heart rate fluctuating 95-100 no active signs of heart failure No acute respite distress bilateral breath sounds no active rhonchi or crackles Abdomen soft nontender bowel sound present Low symmetry no edema granular ulcer Appropriate mood and affect No skin ulcers or gangrene Data : 09/03/20 20:40 09/03/20 20:40 A&P Assessment and plan (1) Pulmonary embolism: Status: Acute (2) Colon cancer: Status: Acute Additional A&P Information Acute symptomatic pulmonary embolism No right heart strain evident on pulmonary imaging, would obtain BNP however troponin slightly high, hemodynamically stable pros &cons of starting Eliquis discussed with the patient, Dr. Cat also recommended to go ahead and start Eliquis despite her metastases, patient agreed to start Eliquis for at least 3 months and follow with Dr. Cat regarding further recommendations No active chest pain shortness of breath saturating well on room air Follow-up with BMP, obtain echo in the morning Patient however is endorsing that she tripped over while managing her wheelchair a month ago, risk of bleeding with falls was discussed with the patient as well Colon cancer with metastases Recent imaging showing retroperitoneal lymphadenopathy, worsening hepatic metastases Recent chemotherapy session was on 08/30, patient is under the impression that cancer is resolving, I avoided to discuss further regarding retroperitoneal lymphadenopathy and would like Dr. Cat to discuss these findings in setting of her underlying cancer, she has worsening of alkaline phosphatase along abnormal transaminases and high bilirubin which goes with liver metastases findings evident on the imaging, no active signs of cholangitis, patient is status post cholecystectomy Recently was treated for UTI no active symptoms I would not keep her on any antibiotics for now Type 2 diabetes: Moderate sliding scale Full code Consistent carb diet DVT prophylaxis not needed currently on therapeutic dose of Eliquis Attestations Medical Necessity Statement*: Anticipating discharge in less than 48 hours currently need overnight monitoring because of acute symptomatic PE starting therapeutic dose of Lovenox, patient extremely lethargic and tired to manage her wheelchair as well Time Spent in Patient Care: (>than 50% of time spent in counselling and/or direct pt care on unit) . 50mins Coding Level of Care Code Acute Lean Manufacturing Coordinator for Ania Campbell Diagnoses Pulmonary embolism I26.99 Colon cancer C18.9
--- NOTE | 2020-09-03 22:38 | W.ED.GENADLT ---
HPI - General Adult General: Chief complaint: Urogenital-Female Stated complaint: UTI S/S, SOB Time Seen by Provider: 09/03/20 19:59 PFSH ED PFSH: Medical History (Updated 09/03/20 @ 22:40 by Estela Jacobo) Back pain Cancer Colon cancer Moderately differentiated infiltrating adenocarcinoma status post sigmoid colon resection with metastases to liver Diabetes Hypertension Microcytic anemia Port-A-Cath in place Surgical History (Updated 09/03/20 @ 22:39 by Jose Savage MD) H/O breast biopsy H/O: hysterectomy History of surgery of liver Right hepatic lobectomy along with cholecystectomy May 03 Social History Smoking and tobacco status: never smoked Second hand smoke exposure: No Alcohol intake: never Lives independently: Yes Household members: spouse Housing: House Marital status: Current occupational status: retired Current occupational exposures/hazards: No History of recent travel: No Current gender identity: Female Course Vital Signs: Vital signs: Vital Signs Temperature 98.6 F 09/03/20 14:48 Pulse Rate 93 09/03/20 20:18 Respiratory Rate 16 09/03/20 20:18 Blood Pressure 134/96 09/03/20 20:18 Pulse Oximetry 95 09/03/20 20:18 MDM - General Adult MDM Narrative: Medical decision making narrative: Patient seen and examined by me. I agree with Rasheeda Grewal APN's assessment and plan. Patient appears to have diffuse metastatic disease present. We reviewed the case with Dr. Cat he wanted to start the patient on Eliquis and perform a head CT in the morning. Patient shows no sign of acute heart failure secondary to the PEs. The case was reviewed and next entirety with Dr. Savage he agrees to admit for further evaluation and care. Lab Data: Attestation: I reviewed the patient's lab results. Labs: Lab Results 09/03/20 09/03/20 09/03/20 Range/Units 20:40 20:40 20:40 WBC 12.7 H (4.0-10.0) 10^3/ uL RBC 4.73 (4.1-5.3) 10^6/u L Hgb 12.6 (11.5-15.3) g/dL Hct 38.9 (37.0-47.0) % MCV 82.2 (81-99) fL MCH 26.6 L (28.0-34.0) pg MCHC 32.4 (30.0-36.0) g/dL RDW 21.0 H (12.1-15.1) % Plt Count 176 (130-400) 10^3/c mm MPV 10.3 (7.4-10.4) fL Neut % (Auto) 80.5 % Lymph % (Auto) 7.4 % [place] % (Auto) 10.9 % Eos % (Auto) 0.4 % Baso % (Auto) 0.3 % Neut # (Auto) 10.25 H (1.8-7.7) 10^3/u L Lymph # (Auto) 0.9 (0.8-4.8) 10^3/u L [place] # (Auto) 1.4 H (0.2-0.9) 10^3/u L Eos # (Auto) 0.1 (0.0-0.8) 10^3/u L Baso # (Auto) 0.0 (0.0-0.1) 10^3/u L Nucleated RBC % (a uto) 0 % Nucleated RBCs # 0.0 /100WBC Sodium 137 (136-145) mmol/L Potassium 4.0 (3.5-5.1) mmol/L Chloride 100 (98-107) mmol/L Carbon Dioxide 24 (22-29) mmol/L Anion Gap 17.0 (5-19) BUN 10 (8-23) mg/dL Creatinine 0.3 L (0.5-0.9) mg/dL GFR Calculation Not Reportable Glucose 180 H (65-115) mg/dL Calculated Osmolal ity 288 (285-295) mOsm/k g Calcium 9.0 (8.5-10.5) mg/dL Total Bilirubin 2.8 H (0.15-1.2) mg/dL AST 77 H (0-32) U/L ALT 35 H (0-33) U/L Alkaline Phosphata se 576 H (35-105) IU/L Troponin T Baselin e 24 H (0-10) ng/L Total Protein 6.5 L (6.6-8.7) g/dL Albumin 3.1 L (3.5-5.2) g/dL Globulin 3.4 (1.3-4.6) g/dL Discharge Plan Discharge Patient Disposition: Admitted As Inpatient Clinical Impression: Pulmonary emboli Condition: Stable Prescriptions: No Action Avastin 25 mg/mL solution 25 mg IV .q 3 weeks RF: 0 metformin 500 mg tablet 2,000 mg PO DAILY 90 Days Qty: 360 RF: 1 (DME) One Touch Ultra Blue Test Strip See Rx Instructions .Route .MEDSUPPLY Qty: 100 RF: 0 dicyclomine 20 mg tablet 20 mg PO TID Qty: 20 RF: 0 potassium chloride 20 mEq tablet,ER particles/crystals 20 meq PO BID RF: 0 furosemide 20 mg tablet 20 mg PO DAILY RF: 0 pravastatin 40 mg tablet 40 mg PO DAILY RF: 0 glimepiride 2 mg tablet 2 mg PO BID RF: 0 ciprofloxacin HCl 500 mg tablet 500 mg PO BID Qty: 14 RF: 0 Referrals: Tara Chand FNP [Primary Care Provider] - Coding Level of Care Code 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
[2020-09-03 23:14] LABS: Troponin 5 2HR 26.76 ng/L (0-10); Troponin 5 2HR Delta 2.76 ABS# (0-10)
[2020-09-04 01:09] VITALS: PULSE 85; RESP 14; O2SAT 98
[2020-09-04 01:28] VITALS: BP 147/80; PULSE 95; RESP 18; O2SAT 92
[2020-09-04 02:49] LABS: INR 1.29 (0.8-1.2)
[2020-09-04 02:50] LABS: Partial Thromboplastin Time 24.1 SECONDS (23.9-36.7)
[2020-09-04 02:52] LABS: Lactate (Lactic Acid level) 2.4 mmol/L (0.5-2.2)
[2020-09-04 07:00] VITALS: BP 138/69; PULSE 81; RESP 18; O2SAT 93
--- NOTE | 2020-09-04 09:56 | USCV_ITS ---
Elaine Garcia Age: 80 Gender: F : 1940 Exam Date: 09/04/2020 13:25 Ordering Phys: Jose Savage MD Technologist: Cleveland Beltran [place] [facility] [place]: PE BP: 118 / 75 HR: 82 Rhythm: ABNORMAL EKG Technical Quality: Fair MEASUREMENTS (Male / Female) Normal Values 2D ECHO LV Diastolic Diameter PLAX 2.7 cm 4.2 - 5.9 / 3.9 - 5.3 cm LV Systolic Diameter PLAX 1.7 cm IVS Diastolic Thickness 1.4 cm 0.6 - 1.0 / 0.6 - 0.9 cm IVS Systolic Thickness 1.9 cm LVPW Diastolic Thickness 1.0 cm 0.6 - 1.0 / 0.6 - 0.9 cm LVPW Systolic Thickness 1.4 cm LVOT Diameter 2.0 cm LV Ejection Fraction 2D Teich 75.5 % LV Ejection Fraction MOD 2C 73.2 % LV Ejection Fraction 2C AL 73.9 % LA Diameter 3.2 cm LA Width 3.3 cm LA Height 4.1 cm RA Width 2.7 cm RA Height 4.6 cm Aorta at Sinotubular Diameter 2.1 cm M-MODE LV Diastolic Diameter MM 4.4 cm 4.2 - 5.9 / 3.9 - 5.3 cm LV Systolic Diameter MM 2.8 cm LV Ejection Fraction MM Teich 66.9 % IVS Diastolic Thickness MM 1.3 cm 0.6 - 1.0 / 0.6 - 0.9 cm IVS Systolic Thickness MM 1.6 cm LVPW Diastolic Thickness MM 0.7 cm 0.6 - 1.0 / 0.6 - 0.9 cm LVPW Systolic Thickness MM 1.7 cm Aortic Annulus Diameter 2.8 cm LA Ao Ratio MM 1.2 MV E Point Septal Separation 0.8 cm DOPPLER AV Peak Velocity 167.0 cm/s LVOT Peak Velocity 120.0 cm/s AV Area Cont Eq vti 2.4 cm squared AV Area Cont Eq pk 2.2 cm squared MV Area PHT 3.5 cm squared Mitral E to A Ratio 0.6 MV E' Velocity 41.4 cm/s Mitral E to MV E' Ratio 9.3 Mitral E to LV E' Lateral Ratio 8.2 Mitral E to LV E' Septal Ratio 10.7 TR Peak Velocity 198.0 cm/s TR Peak Gradient 15.7 mmHg TV Peak E Velocity 72.0 cm/s Right Atrial Pressure 3.0 mmHg Pulmonary Artery Systolic Pressu 18.7 mmHg FINDINGS Left Ventricle Normal left ventricular size and systolic function, EF 64 %. Echodense linear structure in the LV cavity to his apex, most likely degenerated endocardial structure. Grade I/IV diastolic dysfunction (abnormal relaxation filling pattern), normal to mildly elevated filling pressures. Right Ventricle Normal right ventricular size and systolic function. Right Atrium Normal right atrial size. Left Atrium The left atrium is normal in size. Mitral Valve No gross abnormalities noted . Aortic Valve No gross abnormalities noted . Tricuspid Valve No gross abnormalities noted . Pulmonic Valve Pulmonic valve not well visualized. Pericardium Normal pericardium without effusion. Aorta Normal ascending aorta dimension. CONCLUSIONS Normal left ventricular size and systolic function, EF 64 %. Echodense linear structure in the LV cavity towards the apex, most likely degenerated endocardial structure. Grade I/IV diastolic dysfunction (abnormal relaxation filling pattern), normal to mildly elevated filling pressures. No significant stenotic or regurgitant lesion. There is no pericardial effusion. There are no intracardiac masses. No previous study is available for comparison. Dr Mary Doan MD FACC (Electronically Signed) Final Date: 04 September 2020 21:56 S
[2020-09-04] MEDS: apixaban 5 mg Tablet 10 MG PO ×2 (10:16→20:21)
[2020-09-04] MEDS: sodium chloride 0.9% 1,000 ML 50 ML IV ×2 (10:23→21:47)
[2020-09-04 10:28] LABS: NT Pro B Type Natriuretic Pept 746 pg/mL (0-450)
[2020-09-04 10:30] LABS: Glucose Point of Care 224 mg/dL (70-110)
[2020-09-04 10:40] VITALS: BP 125/98; PULSE 86; RESP 20; O2SAT 94
[2020-09-04 13:18] LABS: Glucose Point of Care 102 mg/dL (70-110)
[2020-09-04 13:48] LABS: Urine Appearance Clear (CLEAR); Urine Color Amber (Yellow)
[2020-09-04 13:49] LABS: Add Urine Microscopic? YES; Bilirubin Urine 1+ (Negative); Blood Urine Neg (Negative); Glucose Urine UA Norm (Normal); Ketones Urine Negative (Negative); Leukocyte Esterase Urine Negative (Negative); Nitrate Urine Negative (Negative); Protein Urine 1+ (Negative); Urobilinogen Urine 1 mg/dL (Negative); pH Urine 5 (5-7)
[2020-09-04 13:50] LABS: Add Urine Culture? No; Bacteria Urine 3+ /hpf; Mucus Urine 1+ /hpf; RBC Urine 0-4 /hpf (0-2)
--- NOTE | 2020-09-04 16:58 | P.PN_ITS ---
Subjective Subjective: Interval history: no acute overnight events. remains on RA. No chest pain. 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
[2020-09-04 17:39] VITALS: BP 133/86; PULSE 83; RESP 18; O2SAT 94
[2020-09-04 19:03] VITALS: BMI 33.9
[2020-09-04 20:00] VITALS: BP 146/76; PULSE 82; RESP 18; TEMP 36.5; O2SAT 95
--- NOTE | 2020-09-04 20:16 | PC.NURSE ---
Upon assessing the patient, IV would not flush. This nurse checked catheter placement and found catheter out of patients vein.
[2020-09-04 20:57] LABS: Glucose Point of Care 138 mg/dL (70-110)
[2020-09-05] VITALS: BP 134/79; PULSE 84; RESP 18; TEMP 36.9; O2SAT 92
[2020-09-05 03:50] VITALS: BP 131/77; PULSE 87; RESP 18; TEMP 36.6; O2SAT 92
[2020-09-05 05:08] VITALS: PULSE 90; O2SAT 93
[2020-09-05 06:32] LABS: Glucose Point of Care 156 mg/dL (70-110)
[2020-09-05 08:00] VITALS: BP 122/71; PULSE 71; RESP 16; TEMP 36.7; O2SAT 92
[2020-09-05] MEDS: apixaban 5 mg Tablet 10 MG PO (08:01)
[2020-09-05 09:38] LABS: Basophils # 0.1 10^3/uL (0.0-0.1); Basophils % 0.4 %; Eosinophils # 0.3 10^3/uL (0.0-0.8); Eosinophils % 2.3 %; Hematocrit 34.1 % (37.0-47.0); Hemoglobin 10.7 g/dL (11.5-15.3); Lymphocytes # 1.1 10^3/uL (0.8-4.8); Lymphocytes % 9.4 %; Mean Corpuscular HGB Conc 31.4 g/dL (30.0-36.0); Mean Corpuscular Hemoglobin 26.6 pg (28.0-34.0); Mean Corpuscular Volume 84.8 fL (81-99); Mean Platelet Volume 11.2 fL (7.4-10.4); Monocytes # 1.2 10^3/uL (0.2-0.9); Monocytes % 10.8 %; Neutrophils # 8.61 10^3/uL (1.8-7.7); Neutrophils % 76.4 %; Nucleated Red Blood Cells % 0 %; Platelet Count 161 10^3/cmm (130-400); Red Blood Count 4.02 10^6/uL (4.1-5.3); White Blood Count 11.3 10^3/uL (4.0-10.0)
[2020-09-05 09:47] LABS: Anion Gap 15.4 (5-19); Blood Urea Nitrogen 8 mg/dL (8-23); Calcium 8.1 mg/dL (8.5-10.5); Carbon Dioxide 23 mmol/L (22-29); Chloride 102 mmol/L (98-107); Glucose 143 mg/dL (65-115); Osmolality Calculated 285 mOsm/kg (285-295); Potassium 3.4 mmol/L (3.5-5.1); Sodium 137 mmol/L (136-145)
--- NOTE | 2020-09-05 09:59 | PM.DCS ---
Discharge Providers Date of Admission: 09/04/20 07:00 Date of Discharge: September 05, 2020 Attending Provider at Admission: Samantha Olmos MD Attending Provider at Discharge: Samantha Olmos MD Primary Care Provider: AMELIA Dong Diagnoses at Discharge Discharge Diagnosis (1) Pulmonary embolism: Status: Acute (2) Colon cancer: Status: Acute Reason for Visit Reason for Visit: WEAKNESS Hospital Course Hospital Course Elaien Garcia is a 80 year old female who has history of stage IV colon cancer with metastasis to liver her last chemotherapy session 08/30, admitted on September 03 with chief complaints of generalized weakness.Diagnosis in the ER revealed normal hemodynamics she saturating well on room air, pulmonary imaging revealed bilateral pulmonary embolism, hepatic metastatic disease retroperitoneal lymphadenopathy and diverticulosis without diverticulitis. With discovery of the pulmonary embolism she was started on Eliquis 10 mg p.o. twice daily. 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 Cat. Plan to keep patient on Eliquis at least for the next 3 months, further anticoagulation to be decided after outpatient follow-up with hematology oncology. Patient has been saturating well on room air during the course of her admission. She has been hemodynamically stable additionally. Recommended to use walker and wheelchair at all times to avoid any falls as she would be at a higher bleeding risk with the initiation of Eliquis at this time. Home oxygen evaluation was performed prior to discharge. 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 Discharge Data Data Completed and Pending: Completed Studies During Hospitalization Category Date Time Status CT angio chest w abd pel w con Urge nt Cat Scan 09/03/20 20:04 Completed XR chest 1V aaron ble [id number] Stat Exams 09/03/20 15:00 Completed CV echo complete* [id number] Routine Ultrasound 09/04/20 09:56 Completed Labs from last 24 hours 09/05/20 09/05/20 09/05/20 06:24 05:00 05:00 WBC 11.3 H RBC 4.02 L Hgb 10.7 L Hct 34.1 L MCV 84.8 MCH 26.6 L MCHC 31.4 RDW 22.0 H Plt Count 161 MPV 11.2 H Neut % (Auto) 76.4 Lymph % (Auto) 9.4 [place] % (Auto) 10.8 Eos % (Auto) 2.3 Baso % (Auto) 0.4 Neut # (Auto) 8.61 H Lymph # (Auto) 1.1 [place] # (Auto) 1.2 H Eos # (Auto) 0.3 Baso # (Auto) 0.1 Nucleated RBC % (a uto) 0 Nucleated RBCs # 0.0 Sodium 137 Potassium 3.4 L Chloride 102 Carbon Dioxide 23 Anion Gap 15.4 BUN 8 Creatinine 0.4 L GFR Calculation Not Reportable Glucose 143 H POC Glucose 156 H Calculated Osmolal ity 285 Calcium 8.1 L NT-Pro-B Natriuret Pep Urine Color Urine Appearance Urine pH Ur Specific Gravit y Urine Protein Urine Glucose (UA) Urine Ketones Urine Blood Urine Nitrate Urine Bilirubin Urine Urobilinogen Ur Leukocyte Lilian ase Urine RBC Urine WBC Ur Squamous Epith Cells Amorphous Sediment Urine Bacteria Urine Mucus 09/04/20 09/04/20 09/04/20 20:24 13:12 10:14 WBC RBC Hgb Hct MCV MCH MCHC RDW Plt Count MPV Neut % (Auto) Lymph % (Auto) [place] % (Auto) Eos % (Auto) Baso % (Auto) Neut # (Auto) Lymph # (Auto) [place] # (Auto) Eos # (Auto) Baso # (Auto) Nucleated RBC % (a uto) Nucleated RBCs # Sodium Potassium Chloride Carbon Dioxide Anion Gap BUN Creatinine GFR Calculation Glucose POC Glucose 138 H 102 224 H Calculated Osmolal ity Calcium NT-Pro-B Natriuret Pep Urine Color Urine Appearance Urine pH Ur Specific Gravit y Urine Protein Urine Glucose (UA) Urine Ketones Urine Blood Urine Nitrate Urine Bilirubin Urine Urobilinogen Ur Leukocyte Lilian ase Urine RBC Urine WBC Ur Squamous Epith Cells Amorphous Sediment Urine Bacteria Urine Mucus 09/04/20 09/03/20 02:35 14:30 WBC RBC Hgb Hct MCV MCH MCHC RDW Plt Count MPV Neut % (Auto) Lymph % (Auto) [place] % (Auto) Eos % (Auto) Baso % (Auto) Neut # (Auto) Lymph # (Auto) [place] # (Auto) Eos # (Auto) Baso # (Auto) Nucleated RBC % (a uto) Nucleated RBCs # Sodium Potassium Chloride Carbon Dioxide Anion Gap BUN Creatinine GFR Calculation Glucose POC Glucose Calculated Osmolal ity Calcium NT-Pro-B Natriuret Pep 746 H Urine Color Marlyn Urine Appearance Clear Urine pH 5 Ur Specific Gravit y 1.010 Urine Protein 1+ H Urine Glucose (UA) Norm Urine Ketones Negative Urine Blood Neg Urine Nitrate Negative Urine Bilirubin 1+ H Urine Urobilinogen 1 H Ur Leukocyte Lilian ase Negative Urine RBC 0-4 H Urine WBC None Ur Squamous Epith Cells 5-10 H Amorphous Sediment Not Reportable Urine Bacteria 3+ H Urine Mucus 1+ Vitals: Last Vital Signs Temp 98.0 F 09/05/20 08:00 Pulse 71 09/05/20 08:00 Resp 16 09/05/20 08:00 BP 122/71 09/05/20 08:00 Pulse Ox 92 09/05/20 08:00 Discharge Plan Discharge Patient Disposition: Home Condition: Stable Prescriptions: New Eliquis 5 mg Tablet 5 mg PO BID 45 Days Qty: 90 RF: 0 Continued (DME) One Touch Ultra Blue Test Strip See Rx Instructions .Route .MEDSUPPLY Qty: 100 RF: 0 pravastatin 40 mg tablet 40 mg PO QAM RF: 0 glimepiride 2 mg tablet 2 mg PO BID RF: 0 furosemide 40 mg tablet 40 mg PO QAM RF: 0 potassium chloride 10 mEq capsule, extended release 10 meq PO QAM RF: 0 nitrofurantoin macrocrystal 50 mg capsule 50 mg PO QID RF: 0 Xeloda 500 mg tablet See Rx Instructions .ROUTE .COMPLEX RF: 0 metformin 500 mg tablet 1,000 mg PO BID RF: 0 Discharge Orders: Discharge Order (Routine); Ordered 09/05/20 Ordered By: Samantha Olmos Referrals: Tara Chand FNP [Primary Care Provider] - 7-10 days Abdullahi Cat MD [Staff Physician] - 7-10 days Discharge Diet: Usual diet Discharge Activity: Increase activity as tolerated Discharge Attestations Time Spent in Discharge Care*: greater than 30 min Quality Metrics Clinical Quality Measures During this hospital stay, did patient experience: VTE Contraindication to Overlap Therapy: Overlap treatment not indicated VTE Discharge Education: Education about anticoagulant therapy/Care Notes given Deep Vein Thrombosis/Pulmonary Embolism Present on Admission: Yes Coding Level of Care 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
[2020-09-05 11:07] VITALS: O2SAT 90; O2SAT 92
[2020-09-05 11:23] LABS: Glucose Point of Care 126 mg/dL (70-110)
[2020-09-05 12:30] VITALS: BP 122/71; PULSE 71; RESP 16; TEMP 36.7; O2SAT 92
--- NOTE | 2020-09-05 12:32 | PC.NURSE ---
Discharge instructions given to patient and spouse. All questions answered. IV removed tip intact, dressing applied. Patient tolerated well. Patient in stable condition.
== END 2020-09-05 12:36 | disposition home or self-care (01) ==
LOC: ER 22:40 → ER IP 09-04 08:46 → MEDSURG 09-04 17:27
PROVIDERS: Family Medicine; Internal Medicine; Nurse Practitioner Family; Admitting Provider Student in an Organized Health Care Education/Training Program; Emergency Provider Emergency Medicine; PCP Nurse Practitioner Family; Visit Provider Student in an Organized Health Care Education/Training Program
DX: I26.99 Other pulmonary embolism without acute cor pulmonale (principal); C18.9 Malignant neoplasm of colon, unspecified; C78.7 Secondary malignant neoplasm of liver and intrahepatic bile duct; E11.9 Type 2 diabetes mellitus without complications; Z79.84 Long term (current) use of oral hypoglycemic drugs; Z79.01 Long term (current) use of anticoagulants; I10 Essential (primary) hypertension
CPT/HCPCS: 12345; 36415; 36416; 71045; 71275; 74177; 80048; 80053; 81001; 82962; 83605; 83880; 84484; 85025; 85610; 85730; 93005; 93306; 94660; 96360; 96361; 96372; 99284; 99285; G0378; J1815; J7030; Q9967

== ENCOUNTER 2020-09-18 13:35 | Outpatient (CLI) | payer MEDICARE, SELFPAY ==
[2020-09-18 14:38] LABS: Basophils % 0.2 %; Eosinophils # 0.1 10^3/uL (0.0-0.8); Eosinophils % 0.3 %; Hematocrit 37.7 % (37.0-47.0); Lymphocytes # 1.1 10^3/uL (0.8-4.8); Lymphocytes % 5.8 %; Mean Corpuscular HGB Conc 31.8 g/dL (30.0-36.0); Mean Corpuscular Hemoglobin 27.7 pg (28.0-34.0); Mean Corpuscular Volume 87.1 fL (81-99); Mean Platelet Volume 10.7 fL (7.4-10.4); Monocytes # 1.3 10^3/uL (0.2-0.9); Monocytes % 6.8 %; Neutrophils % 84.3 %; Nucleated Red Blood Cells % 0.2 %; Platelet Count 150 10^3/cmm (130-400); Red Blood Count 4.33 10^6/uL (4.1-5.3); Red Cell Distribution Width 26.5 % (12.1-15.1); White Blood Count 19.5 10^3/uL (4.0-10.0)
[2020-09-18 14:51] LABS: Alanine Aminotransferase 39 U/L (0-33); Albumin Level 2.6 g/dL (3.5-5.2); Alkaline Phosphatase 501 IU/L (35-105); Anion Gap 14.9 (5-19); Aspartate Amino Transferase 155 U/L (0-32); Blood Urea Nitrogen 13 mg/dL (8-23); Calcium 8.2 mg/dL (8.5-10.5); Carbon Dioxide 30 mmol/L (22-29); Chloride 96 mmol/L (98-107); Globulin 2.8 g/dL (1.3-4.6); Glucose 111 mg/dL (65-115); Osmolality Calculated 287 mOsm/kg (285-295); Sodium 138 mmol/L (136-145); Total Protein 5.4 g/dL (6.6-8.7)
[2020-09-18 14:55] LABS: Potassium 2.9 mmol/L (3.5-5.1)
[2020-09-18 14:56] LABS: Total Bilirubin 9.6 mg/dL (0.15-1.2)
[2020-09-18 15:38] LABS: Prealbumin 5.4 mg/dL (20-40)
== END 2020-09-18 13:36 | disposition home or self-care (01) ==
LOC: ONCMED 15:18
PROVIDERS: PCP Nurse Practitioner Family; Visit Provider Internal Medicine Hematology & Oncology
DX: C18.8 Malignant neoplasm of overlapping sites of colon (principal); C78.7 Secondary malignant neoplasm of liver and intrahepatic bile duct
CPT/HCPCS: 80053; 84134; 85025

== ENCOUNTER 2020-09-19 09:04 | Outpatient (CLI) | payer MEDICARE, SELFPAY ==
[2020-09-19 10:10] LABS: Magnesium 1.6 mg/dL (1.7-2.3)
[2020-09-19 10:13] LABS: Ammonia 28 umol/L (11-51)
[2020-09-19 10:14] LABS: Alanine Aminotransferase 40 U/L (0-33); Albumin Level 2.8 g/dL (3.5-5.2); Alkaline Phosphatase 530 IU/L (35-105); Aspartate Amino Transferase 143 U/L (0-32); Globulin 3.4 g/dL (1.3-4.6); Total Protein 6.2 g/dL (6.6-8.7)
[2020-09-19 10:19] LABS: Total Bilirubin 10.8 mg/dL (0.15-1.2)
[2020-09-19] MEDS: sodium chloride 0.9% 500 ML 75 ML IV (10:35)
[2020-09-19 11:47] LABS: Basophils # 0.1 10^3/uL (0.0-0.1); Basophils % 0.3 %; Eosinophils # 0.1 10^3/uL (0.0-0.8); Eosinophils % 0.3 %; Hemoglobin 12.1 g/dL (11.5-15.3); Lymphocytes # 0.9 10^3/uL (0.8-4.8); Mean Corpuscular HGB Conc 31.8 g/dL (30.0-36.0); Mean Corpuscular Hemoglobin 27.7 pg (28.0-34.0); Mean Platelet Volume 10.4 fL (7.4-10.4); Monocytes # 1.3 10^3/uL (0.2-0.9); Monocytes % 7.3 %; Neutrophils # 15.21 10^3/uL (1.8-7.7); Neutrophils % 85.9 %; Nucleated Red Blood Cells % 0.2 %; Platelet Count 114 10^3/cmm (130-400); Red Blood Count 4.37 10^6/uL (4.1-5.3); Red Cell Distribution Width 27.2 % (12.1-15.1); White Blood Count 17.7 10^3/uL (4.0-10.0)
[2020-09-19 14:47] LABS: Anion Gap 18.2 (5-19); Blood Urea Nitrogen 12 mg/dL (8-23); Calcium 8.6 mg/dL (8.5-10.5); Carbon Dioxide 28 mmol/L (22-29); Chloride 97 mmol/L (98-107); Glucose 82 mg/dL (65-115); Osmolality Calculated 289 mOsm/kg (285-295); Potassium 3.2 mmol/L (3.5-5.1); Prealbumin 6.1 mg/dL (20-40); Sodium 140 mmol/L (136-145)
--- NOTE | 2020-09-21 13:28 | ONC FU_ITS ---
Dr. Cat follow up note Patient: Elaine Gomez Unit #: [id number]: [id number] Dicatated By: Abdullahi Cat M.D.Date of Visit:Sep 19, 2020 Onc Med Follow-up/Prog Note History of Present Illness: Mrs. Gomez is a 80 -year-old female with history of chronic back pain for which she was taking ibuprofen for the last 4 months. She went to see her primary care physician for routine lab workup and follow-up and found to have severe anemia. Her CBC checked on 05/05/2019 shows white blood count 7.2 hemoglobin 6.7 crit 23.2 platelets 367,000 MCV 65.5 iron studies showed ferritin 6 iron 17 saturation for TIBC 425 and CMP was within normal range. Patient was given 2 units of packed RBCs. Patient said she was feeling weak and tired but thought it was due to old age . She had had no palpitations, no shortness of breath, no history of melena or hematochezia, no history of jaundice, no history of weight loss, no history of hemoptysis or hematemesis, no history of hematuria. No history of weight loss. No history of abdominal pain. Patient has history of peptic ulcer in the past. Last colonoscopy was done 5 years ago and at that time she was found to have some polyps, there were removed as per patient it was negative for any malignancy. Mrs Gomez underwent EGD and colonoscopy by Dr. Haas on 06/07/2019 Showed distal colon/sigmoid mass and biopsy was obtained which shows infiltrating adenocarcinoma CT scan of abdomen pelvis done on 06/08/2019 showed colonic mass involving descending and sigmoid colon with luminal narrowing measuring over length of 6.4 cm and normal size liver. There are several hypoechoic nodules within the liver. The largest and most concerning is in the inferior right lobe measuring 2.2 x 1.3 cm. There are a few additional scattered hypodensities within the remaining liver. CT PET scan done on 06/18/2019 showed hypermetabolic colonic mass in the descending colon at sigmoid with SUV of 18.7. And two hypermetabolic hepatic lesions also seen, one is in the lateral right lobe, segment 7 measuring 1.2 cm with SUV 5.3 and second one in the left lobe measuring 1.3 cm with SUV of 6.5 Next generation sequencing showed K-marti/N marti wild type,BRAF mutation not detected, MSI/MMR intact. recommended treatment with modified FOLFOX and vectibix. She began her first treatment on July 18, 2019 After 6 treatments, follow-up CT PET scan done on 10/14/2019 showed resolution of hepatic metastatic disease and significant improvement in the rectosigmoid mass now SUV 10.75 compared to 18.7 on 06/18/2019. Her last chemotherapy was on October 03, 2019 which completed 6 cycles of FOLFOX and vectibix. She presented the following week for a follow-up as she was having hypokalemia and hypomagnesemia. Her last potassium infusion was 20 mEq here on October 17, 2019. She was taking 20 mEq daily at home. Subsequently started having nausea and off and on vomiting and abdominal cramping was treated with hydration and symptomatic as outpatient on 10/27/2019 patient went to [facility] with persistent but progressive abdominal pain nausea vomiting and underwent CT scan of abdomen pelvis which showed new 0.9 cm hypodense nodule in the anterior left liver lobe. The other low-density nodules previously identified in the liver are not visualized. Calcified sclerotic lesion in the proximal sigmoid colon with distended stool filled colon proximal to the lesion with the mild wall thickening. There is a diffuse dilatation of small bowel with fecalization , measuring up to 4.2 cm. No abdominal or pelvic lymphadenopathy seen. Mrs Gomez came to office on 10/31/2019 with progressive constipation but no abdominal pain, at that time clinical impression was colon obstruction versus ileus. Her case was discussed with her son Dakota Gomez in [facility]. Mrs Gomez was sent to [facility] [place] via ambulance and underwent sigmoid colon resection on 11/03/2019. The final pathology report showed residual tumor, 3.5 cm moderately differentiated, tumor invades through muscularis propria into pericolic colorectal tissue with clear surgical margin and, lymphovascular invasion present ypT3 , 4/ 16 lymph nodes showed metastatic disease ypN2a. Patient tolerated procedure well, Case was discussed with Dr. Gomez and his colleague Dr. Cat-medical oncologist in [place] and and it was decided to start her on a Avastin/Xeloda and repeat CT PET scan after 3 or 4 cycles if it shows good response then tackle liver mets. She started on a Avastin/Xeloda on January 16, 2020. Last dose of a Avastin was given on March 21, 2020 and last dose of Xeloda was taken on April 04, 2020 Mrs Gomez underwent follow-up CT PET scan on March 30, 2020 and the impression was new lesions of both lobes and the liver consistent with metastatic involvement in addition to 2 prominent lesions small foci are present which may be further evaluated with MRI scan of the liver. No other findings suggestive of tumor recurrence or progression. Case was discussed with Dr. Gomez, surgeon and patient's son in [place], who has evaluated and compared latest CT PET scan with the previous one and his impression was no significant change from previous scan e.g. doubtful new lesions. Subsequently she underwent partial left hepatic lobectomy, right hepatic lobe wedge resection and wedge resection of segment 7 and 8 along with cholecystectomy on May 09, 2020 and final pathology report showed metastatic colorectal adenocarcinoma largest mets 4 cm, involving left hepatic lobe; 1.8 cm invasive adenocarcinoma involving the right hepatic lobe. And 0.4 cm metastatic colorectal carcinoma involving segment 7. She started on maintenance therapy with single agent oral Xeloda on June 20, 2020, and plan was to continue Xeloda 850 mg/m??? p.o. twice a day/ her day 1-14 and repeat every 21 days, she completed her two weekly course on July 04, 2020. Her follow-up labs done on July 13, 2020 showed CBC within normal limits, but CMP showed her ALT gone up to 55, AST 70, alk phos 172 compared to on June 18, 2020. At that time her second cycle with oral Xeloda was put on hold for 1 week and her repeat labs done on July 18, 2020 showed improvement in her transaminases e.g. ALT gone down to 40 and AST was also 40 compared to 55/70 on July 13, 2020 although alk phos remained elevated at 198. At that time, Xeloda dose was reduced to 1000 mg p.o. twice daily for 2 weeks from 1300 mg p.o. twice daily which was given with her previous cycle. seen on 07/18/2020. After improvement of her LFTs, it was elected to pursue her second cycle of capecitabine but at a lower dose of 1000 mg p.o. twice daily. She also received her flu vaccine on 07/18/2020. Came for follow-up, complaining of generalized weakness and fatigue and worsening of jaundice, patient said she is having problem with tolerating physical therapy other than that no nausea or vomiting no diarrhea constipation no abdominal pain but poor appetite and poor oral intake. Denies any bony pains, denies any abdominal pain, denies any headaches blurred and double vision, patient is alert and oriented. Medications: Furosemide 1 Tablet (of 40 mg) Oral daily, Glimepiride 1 Tablet (of 2 mg) Oral b.i.d., LORazepam 0.5 - 1 Tablet (of 1 mg) Oral t.i.d. PRN, metFORMIN HCl 2 Tablet (of 500 mg) Oral b.i.d., Nitrofurantoin Macrocrystal 1 Tablet (of 50 mg) Capsule Oral daily, Potassium Chloride ER 1 Tablet (of 10 meq) Tablet, controlled release Oral daily, Pravastatin Sodium 1 Tablet (of 40 mg) Oral daily, Prochlorperazine Maleate 1 Tablet (of 10 mg) Oral q 4 hours PRN, Xeloda (500 mg) Tablet Oral Take as Directed Allergies: Penicillin Review of Systems: Review of Systems is not available for this patient. Vital Signs: Performed on Sep 19, 2020 09:42 Height - 60.00 in Temperature - 97.2 F (LOW) Pulse - 82 /min Respiration - 15 /min BP - 127/79 mm(hg) O2 Sat - 97 % Pain - 0 Performance Status: 3 - Capable of only limited self-care, confined to bed or chair more than 50% of waking hours. (ECOG) Physical Examination: ENMT - No mouth sores but dry oral mucosa, no mucositis but jaundice, Respiratory - Lungs are clear to auscultation, Cardiovascular - Regular rate and rhythm of heart, Abdomen - Soft, bowel sounds present, Extremities - 1+ bilateral edema. Lab/Imaging: Test performed on Sep 19, 2020 09:35 Ammonia 28 umol/L Test performed on Aug 28, 2020 16:25 Ua Color Yellow Ua Appearance Hazy Ua pH 5 Ua Specific Bern 1.015 Ua Glucose 1+ Ua Ketones Negative Ua Protein Trace Ua Blood Neg Ua Bilirubin 1+ Ua Nitrites Negative Ua Leukocyte Esterase Negative Ua Micro: WBC NONE /hpf Ua Micro: RBC 0-4 /hpf Ua Micro: Squam Epith Cells 40-55 CULTURE NOT INDICATED DUE TO >10 EPITHELIAL CELLS PRESENT ON MICROSCOPIC EXAM. POSSIBLE SPECIMEN CONTAMINATION. /hpf Ua Micro: Bacteria 4+ /hpf Test performed on Aug 28, 2020 12:35 Magnesium 1.7 mg/dL Sodium 137 mmol/L Potassium 3.5 mmol/L Chloride 102 mmol/L CO2 26 mmol/L Anion Gap 12.5 BUN 11 mg/dL Creatinine 0.6 mg/dL Cr Clearance (Est) 69.2900 mL/min Glucose 257 mg/dL Osmolality - Calculated 292 mOsm/kg Calcium 8.9 mg/dL Protein, Total 6.1 g/dL Albumin 3.0 g/dL Globulin 3.1 g/dL Bilirubin, Total 1.5 mg/dL ALT (SGPT) 35 U/L AST (SGOT) 73 U/L Alkaline Phosphatase 497 IU/L WBC 14.4 10 3/uL RBC 4.38 10 6/uL HGB 11.9 g/dL HCT 37.7 % MCV 86.1 fL MCH 27.2 pg MCHC 31.6 g/dL RDW 20.6 % Platelet Count 198 10 3/cmm MPV 10.5 fL Neutrophils 12.12 10 3/uL Lymphocytes 1.0 10 3/uL Monocytes 1.1 10 3/uL Eosinophils 0.1 10 3/uL Basophils 0.1 10 3/uL Neutrophil % 84.3 % Lymphocyte % 7.0 % Monocyte % 7.3 % Eosinophil % 0.6 % Basophils % 0.4 % NRBC % 0 % CEA 943.6 ng/mL Test performed on Apr 11, 2020 08:35 Ua Micro: Mucous TRACE Impression: Moderately differentiated infiltrating adenocarcinoma. Status post sigmoid colon resection done on 11/03/2019 final pathology report showed 3.5 cm moderately differentiated adenocarcinoma tumor invades through muscularis propria into pericolorectal fat ypT3 and 4 out of 16 lymph node examined showed metastatic disease ypN2a MMR D intact CT scan of abdomen done on 06/08/2019 showed short segment 80 of significant circumferential mucosal thickening extending over mental 6.4 cm involving descending colon and proximal sigmoid. Moderate narrowing of the lumen. There is adjacent pericolonic stranding with a wall thickening and soft tissue infiltration. There is a small adjacent lymph node measuring 5 mm. Normal size liver. There are several hypoechoic nodules within the liver. The largest and most concerning is the inferior right lobe measuring 2.2 x 1.3 cm there are a few additional scattered hypodensities within the remaining liver. CEA checked on 06/15/2019 was 6.3 Well compensated, Microcytic hypochromic anemia due to iron deficiency Most likely due to bleeding from colon cancer CBC done on 05/05/2019 showed white blood count 7.2 hemoglobin 6.7 hematocrit 23.2 MCV 65.5 platelets 367,000 and ferritin 6, iron saturation 4%, iron 17. Status post 2 units of packed RBC with that her repeat CBC done on 05/24/2019 showed white blood count 5.5 hemoglobin 9.1 g, hematocrit 29.4 MCV 70.9 platelets 320,000 with a normal differential. colonoscopy was done 5 years ago, some polyps were removed, as per patient, there were benign. Distant past history of peptic ulcer disease. discussed with Mrs Gomez regarding her CT PET scan which confirmed hepatic metastatic disease and next initially sequencing which showed MSI/MMR intact, K-marti/ Nras wild type, BRAF no mutation detected. dicussed the role of systemic chemotherapy in stage IV colon cancer with the patient and family and earlier with her son, Dakota Gomez MD who is a surgeon in [facility]. Based on next gene sequencing, it was recommended that she proceed with panitumumab 6 mg/kg every 2 weeks along with FOLFOX. Considering her age and this stage IV disease, there was consideration for dose modification. She did obtain Port-A-Cath placement to facilitate chemotherapy. The plan was to give her 6 cycles of this regimen followed by CT PET scan to assess the response. Her last chemotherapy was on 10/03/2019 which completed 6 cycles of chemotherapy. Follow-up CT PET scan done after 6 cycles of hemotherapy with FOLFOX/panitumumab showed excellent response with resolution of hepatic metastatic disease and significant improvement in the primary in the rectosigmoid colon: SUV 10.75 compared to 18.7 at the time of diagnosis.In October 2019 patient developed symptoms consistent with intestinal obstruction, patient was transferred to [place] to her son Dr. Gomez, and there she underwent sigmoid colon resection on November 03, 2019 and the final pathology report came back yT3, N2a and at that time her case was discussed with Dr. Gomez and his colleague Dr. Cat, medical oncologist and decided to proceed with a Avastin/Xeloda and repeat CT PET scan which Was done on March 30, 2020 which showed persistent hepatic disease with possible new lesions, MRI liver was suggested and no other distant mets seen. Subsequently patient underwent partial left hepatic lobectomy, right hepatic lobe wedge resection and wedge resection of segment 7 and 8 along with cholecystectomy on May 09, 2020 and final pathology report showed metastatic colorectal adenocarcinoma largest mets was 4 cm involving left hepatic lobe. 1.8 cm involving right hepatic lobe. 0.4 cm metastatic colorectal cancer involving segment 7. Patient was restarted on maintenance therapy with single agent oral Xeloda for day 1 through 14 q. 21 days on June 20, 2020. With cycle one of the Xeloda she did experience elevation of her ALT which elevated to 55 (normal is 0-30) AST was 70 with normal being 0-32. Her alk phos was 172 normals 35-1 05. She was evaluated by Dr. Cat on July 18 and was elected to reduce her Xeloda 2000 mg p.o. twice daily for 14 days and she was to resume that day. Her ALT at that time was 40 AST was 40 and alk phos was 198. Plan: Discussed with patient regarding her labs white blood count 19.5 hemoglobin 12 hematocrit 37.7 platelets 150,000 CMP within normal limit except potassium 2.9 and bilirubin 9.6 compared to 1.5 on August 28, 2020 AST 155, ALT 39 alk phos 501 and her tumor CEA marker checked on August 28, 2020 was 943.6 compared to 18 on April 11, [address] scan of abdomen shows disease progression, case was discussed with her son Dr. gomez in [place], who was planning to consider TACE/or RFA to the liver lesion and her case was discussed in their tumor board and medical oncologist there recommended Lonsurf after intervention for liver mets completed her ammonia level is 28 which is within normal limits her bilirubin is increasing repeat was 10.8 and her potassium was 3.2 while she is on potassium supplement Because of poor oral intake and dehydration, we will give her gentle hydration patient lives in [facility] and considering her overall condition it is getting hard for her to come to [place] for physical therapy, discussed with patient, her and her son regarding further plans as per discussion with Dr. Gomez, it was advised that patient may do better if she moved close to her son Dr. Gomez in [place] where she will get better care which can improve her performance status which will make her tolerate any intervention for hepatic mets as well as systemic therapy. Also discussed about hospice care, patient and her family will discuss and then make decision. In the meantime we will continue with supportive care and patient return to clinic in 1 week with CBC CMP Signed By: Abdullahi Cat M.D. <<Signature on File>>
== END 2020-09-19 09:05 | disposition home or self-care (01) ==
LOC: ONCMED 09:07
PROVIDERS: PCP Nurse Practitioner Family; Visit Provider Internal Medicine Hematology & Oncology
DX: C18.9 Malignant neoplasm of colon, unspecified (principal); C77.8 Secondary and unspecified malignant neoplasm of lymph nodes of multiple regions; D50.0 Iron deficiency anemia secondary to blood loss (chronic); K27.9 Peptic ulcer, site unspecified, unspecified as acute or chronic, without hemorrhage or perforation; E86.0 Dehydration; Z79.899 Other long term (current) drug therapy
CPT/HCPCS: 80048; 80076; 82140; 83735; 84134; 85025; 96360; 99214; J7040